=== PATIENT | female | born 1960 | race Caucasian/White ===

== ENCOUNTER 2018-10-29 06:17 | Emergency (ER) | payer BC, SELFPAY ==
[2018-10-29] MEDS ORDERED: ALBUTEROL 2.5 MG/3 ML NEB SOL ONE (07:04)
[2018-10-29] MEDS ORDERED: FAMOTIDINE 20 MG TAB ONE (07:04)
[2018-10-29] MEDS ORDERED: AZITHROMYCIN 250 MG TAB ONE (07:04)
[2018-10-29] MEDS ORDERED: predniSONE 20 MG TAB ONE (07:04)
--- NOTE | 2018-10-29 07:26 | ER ---
Nurse's Notes [facility] Name: Joy Phan Age: 58 yrs Sex: Female : 1960 Arrival Date: 10/29/2018 Time: 06:20 Bed 6 Private MD: Diagnosis: Chronic obstructive pulmonary disease with (acute) exacerbation Presentation: 10/29 06:20 Presenting complaint: Patient states: that she has been having cough with green fc drainage, congestion, wheezing, fever and body aches x 2 weeks. Transition of care: patient was not received from another setting of care. Onset of symptoms was October 15, 2018. Risk Assessment: Do you want to hurt yourself or someone else? Patient reports no desire to harm self or others. Initial Sepsis Screen: Does the patient meet any 2 criteria? RR > 20 per min. HR > 90 bpm. Yes Does the patient have a suspected source of infection? Yes: Productive cough/pneumonia. Care prior to arrival: None. 06:20 Method Of Arrival: Ambulatory 06:20 Acuity: LOVELY 3 fc Historical: - Allergies: 06:39 Aleve; fc - Home Meds: 06:39 [place] 5-325 mg Oral tab 1 tab three times a day [Active]; hydrochlorothiazide 25 mg fc Oral tab 1 tab once daily [Active]; - PMHx: 06:39 Hypertension; Neck pain; fc - PSHx: 06:39 Tubal ligation; ectopic ; fc - Immunization history:: Last tetanus immunization: up to date Flu vaccine is not up to date. - Social history:: Smoking status: Patient uses tobacco products, smokes one pack cigarettes per day. Patient uses alcohol, on a daily basis. - Ebola Screening: : Patient negative for fever greater than or equal to 101.5 degrees Fahrenheit, and additional compatible Ebola Virus Disease symptoms Patient denies exposure to infectious person Patient denies travel to an Ebola-affected area in the 21 days before illness onset. Screenin:39 Abuse screen: Denies threats or abuse. Nutritional screening: No deficits noted. fc Tuberculosis screening: No symptoms or risk factors identified. Fall Risk None identified. Assessment: 06:50 General: Appears in no apparent distress. uncomfortable. General: Behavior is calm, jd3 cooperative, appropriate for age. Pain: Complains of pain in general. Neuro: Level of Consciousness is awake, alert, obeys commands, Oriented to person, place, time, situation. Cardiovascular: Capillary refill < 3 seconds Patient's skin is warm and dry. Respiratory: Reports chest congestion. Airway is patent Respiratory effort is even, unlabored, Respiratory pattern is regular, symmetrical, Breath sounds with wheezes bilaterally. GI: No signs and/or symptoms were reported involving the gastrointestinal system. : No signs and/or symptoms were reported regarding the genitourinary system. EENT: No signs and/or symptoms were reported regarding the EENT system. Derm: Skin is intact, Skin is dry, Skin is normal, Skin temperature is warm. Musculoskeletal: Circulation, motion, and sensation intact. Range of motion: intact in all extremities. 07:27 Reassessment: Patient appears in no apparent distress at this time. Patient and/or hb family updated on plan of care and expected duration. Pain level reassessed. Patient is alert, oriented x 3, equal unlabored respirations, skin warm/dry/pink. Patient states symptoms have improved. 07:38 Reassessment: Patient appears in no apparent distress at this time. Patient and/or sv family updated on plan of care and expected duration. Pain level reassessed. Patient is alert, oriented x 3, equal unlabored respirations, skin warm/dry/pink. Vital Signs: 06:20 BP 126 / 87; Pulse 96; Resp 24; Temp 98.6(O); Pulse Ox 92% on R/A; Weight 52.62 kg (R); Height 5 ft. 6 in. (167.64 cm) (R); Pain 8/10; 07:15 BP 129 / 79; Pulse 92; Resp 20; Pulse Ox 96% on R/A; Pain 0/10; hb 06:20 Body Mass Index 18.72 (52.62 kg, 167.64 cm) ED Course: 06:20 Patient arrived in ED. am2 06:20 Arm band placed on Patient placed in an exam room, on a stretcher. fc 06:23 Karolina Chua FNP-C is PHCP. snw 06:23 Quinton Hurst MD is Attending Physician. snw 06:37 Triage completed. fc 06:39 Allergy band placed. Bed in low position. Call light in reach. fc 06:39 No provider procedures requiring assistance completed. fc 06:50 Jarett Zuluaga, RN is Primary Nurse. jd3 07:39 Patient did not have IV access during this emergency room visit. sv Administered Medications: 07:01 Drug: Albuterol 2.5 mg Route: Inhalation; jd3 07:01 Drug: predniSONE 60 mg Route: PO; jd3 07:40 Follow up: Response: No adverse reaction sv 07:01 Drug: Pepcid 20 mg Route: PO; jd3 07:39 Follow up: Response: No adverse reaction sv 07:01 Drug: Zithromax 500 mg Route: PO; jd3 07:39 Follow up: Response: No adverse reaction sv Outcome: 07:25 Discharge ordered by . snw 07:39 Discharged to home ambulatory. sv 07:39 Condition: stable 07:39 Discharge instructions given to patient, Instructed on discharge instructions, follow up and referral plans. medication usage, Demonstrated understanding of instructions, follow-up care, medications, Prescriptions given X 4. 07:39 Patient left the ED. sv Signatures: Nicole Fraser RN RN Karolina Davenport, ACCOUNTING GENERALIST-C ACCOUNTING GENERALIST-Csnw Zara Buchanan RN RN Garima Whelan RN RN Batool Parra am2 Jarett Zuluaga, RN RN jd3 Corrections: (The following items were deleted from the chart) 07:26 07:15 BP 129 / 79; Pulse 92bpm; Resp 20bpm; Pulse Ox 95% RA; Pain 0/10; hb hb
--- NOTE | 2018-10-29 07:26 | EDPHYS ---
Physician Documentation [facility] Name: Joy Phan Age: 58 yrs Sex: Female : 1960 Arrival Date: 10/29/2018 Time: 06:20 Bed 6 Private MD: ED Physician Quinton Hurst HPI: 10/29 07:07 This 58 yrs old Female presents to ER via Ambulatory with complaints of Chest snw Congestion. 07:07 Onset: The symptoms/episode began/occurred gradually, 2 week(s) ago, and became worse snw this morning, and became persistent. Associated signs and symptoms: Pertinent positives: body aches, productive cough. Modifying factors: the patient symptoms are aggravated by smoking. The patient has experienced similar episodes in the past. The patient has not recently seen a physician. Historical: - Allergies: 06:39 Aleve; fc - Home Meds: 06:39 [place] 5-325 mg Oral tab 1 tab three times a day [Active]; hydrochlorothiazide 25 mg fc Oral tab 1 tab once daily [Active]; - PMHx: 06:39 Hypertension; Neck pain; fc - PSHx: 06:39 Tubal ligation; ectopic ; fc - Immunization history:: Last tetanus immunization: up to date Flu vaccine is not up to date. - Social history:: Smoking status: Patient uses tobacco products, smokes one pack cigarettes per day. Patient uses alcohol, on a daily basis. - Ebola Screening: : Patient negative for fever greater than or equal to 101.5 degrees Fahrenheit, and additional compatible Ebola Virus Disease symptoms Patient denies exposure to infectious person Patient denies travel to an Ebola-affected area in the 21 days before illness onset. ROS: 07:05 Eyes: Negative for injury, pain, redness, and discharge, ENT: Negative for injury, snw pain, and discharge, Neck: Negative for injury, pain, and swelling, Cardiovascular: Negative for chest pain, palpitations, and edema. 07:05 Abdomen/GI: Negative for abdominal pain, nausea, vomiting, diarrhea, and constipation, Back: Negative for injury and pain, : Negative for injury, bleeding, discharge, and swelling, MS/Extremity: Negative for injury and deformity, Skin: Negative for injury, rash, and discoloration, Neuro: Negative for headache, weakness, numbness, tingling, and seizure. 07:05 Constitutional: Positive for body aches. 07:05 Respiratory: Positive for cough, shortness of breath, wheezing. Exam: 06:40 Respiratory: the patient does not display signs of respiratory distress, Respirations: snw pursed lip breathing, shallow respirations, Breath sounds: bronchial sounds, + upper airway congestion. 07:05 Head/Face: Normocephalic, atraumatic. Eyes: Pupils equal round and reactive to light, snw extra-ocular motions intact. Lids and lashes normal. Conjunctiva and sclera are non-icteric and not injected. Cornea within normal limits. Periorbital areas with no swelling, redness, or edema. ENT: Nares patent. No nasal discharge, no septal abnormalities noted. Tympanic membranes are normal and external auditory canals are clear. Oropharynx with no redness, swelling, or masses, exudates, or evidence of obstruction, uvula midline. Mucous membranes moist. Neck: Trachea midline, no thyromegaly or masses palpated, and no cervical lymphadenopathy. Supple, full range of motion without nuchal rigidity, or vertebral point tenderness. No Meningismus. Chest/axilla: Normal chest wall appearance and motion. Nontender with no deformity. No lesions are appreciated. Cardiovascular: Regular rate and rhythm with a normal S1 and S2. No gallops, murmurs, or rubs. Normal PMI, no JVD. No pulse deficits. Abdomen/GI: Soft, non-tender, with normal bowel sounds. No distension or tympany. No guarding or rebound. No evidence of tenderness throughout. Back: No spinal tenderness. No costovertebral tenderness. Full range of motion. 07:05 MS/ Extremity: Pulses equal, no cyanosis. Neurovascular intact. Full, normal range of motion. Neuro: Awake and alert, GCS 15, oriented to person, place, time, and situation. Cranial nerves II-XII grossly intact. Motor strength 5/5 in all extremities. Sensory grossly intact. Cerebellar exam normal. Normal gait. Psych: Awake, alert, with orientation to person, place and time. Behavior, mood, and affect are within normal limits. 07:05 Constitutional: The patient appears awake, anxious, frail, hyperemic, older than stated age 07:05 Skin: Appearance: Color: erythematous, jerod. Vital Signs: 06:20 BP 126 / 87; Pulse 96; Resp 24; Temp 98.6(O); Pulse Ox 92% on R/A; Weight 52.62 kg (R); fc Height 5 ft. 6 in. (167.64 cm) (R); Pain 8/10; 07:15 BP 129 / 79; Pulse 92; Resp 20; Pulse Ox 96% on R/A; Pain 0/10; hb 06:20 Body Mass Index 18.72 (52.62 kg, 167.64 cm) fc MDM: 06:30 Patient medically screened. snw 07:26 Data reviewed: vital signs, nurses notes. Data interpreted: Pulse oximetry: on room air snw is 92 %. Interpretation: acceptable. Counseling: I had a detailed discussion with the patient and/or guardian regarding: the historical points, exam findings, and any diagnostic results supporting the discharge/admit diagnosis, the need for outpatient follow up, to return to the emergency department if symptoms worsen or persist or if there are any questions or concerns that arise at home. Response to treatment: the patient's symptoms have mildly improved after treatment. Special discussion: Based on the history and exam findings, there is no indication for further emergent testing or inpatient evaluation. I discussed with the patient/guardian the need to see the primary care provider for further evaluation of the symptoms. I discussed with the patient/guardian the need to see the welder gas for further evaluation of the symptoms. Administered Medications: 07:01 Drug: Albuterol 2.5 mg Route: Inhalation; jd3 07:01 Drug: predniSONE 60 mg Route: PO; jd3 07:40 Follow up: Response: No adverse reaction sv 07:01 Drug: Pepcid 20 mg Route: PO; jd3 07:39 Follow up: Response: No adverse reaction sv 07:01 Drug: Zithromax 500 mg Route: PO; jd3 07:39 Follow up: Response: No adverse reaction sv Disposition: 10/29/18 07:25 Discharged to Home. Impression: Chronic obstructive pulmonary disease with (acute) exacerbation. - Condition is Stable. - Discharge Instructions: Chronic Obstructive Pulmonary Disease Exacerbation. - Prescriptions for Prednisone 20 mg Oral Tablet - take 2 tablet by ORAL route once daily for 5 days; 10 tablet. Albuterol Sulfate 90 mcg/actuation - inhale 1-2 puff by INHALATION route every 4-6 hours; 1 Inhaler. Pepcid 20 mg Oral Tablet - take 1 tablet by ORAL route once daily; 20 tablet. Zithromax 500 mg Oral Tablet - take 1 tablet by ORAL route once daily for 5 days; 5 tablet. - Work release form, Medication Reconciliation Form, Thank You Letter, Antibiotic Education, Prescription Opioid Use form. - Follow up: Private Physician; When: 2 - 3 days; Reason: Recheck today's complaints, Continuance of care, Re-evaluation by your physician. Follow up: Emergency Department; When: As needed; Reason: Worsening of condition. Addendum: 11/04/2018 06:53 Co-signature as Attending Physician, Quinton Hurst MD I agree with the assessment and t w4 plan of care. Signatures: Nicole Fraser RN RN Karolina Davenport FNP-C ENVIRONMENTAL ADVISOR-Zara Kapadia RN RN Jarett Soliz RN HOL[place] jQuinton Gutiérrez MD MD tw4 Corrections: (The following items were deleted from the chart) 10/29 07:39 07:25 10/29/2018 07:25 Discharged to Home. Impression: Chronic obstructive pulmonary sv disease with (acute) exacerbation. Condition is Stable. Forms are Medication Reconciliation Form, Thank You Letter, Antibiotic Education, Prescription Opioid Use. Follow up: Private Physician; When: 2 - 3 days; Reason: Recheck today's complaints, Continuance of care, Re-evaluation by your physician. Follow up: Emergency Department; When: As needed; Reason: Worsening of condition. snw
[2018-10-29 07:47] VITALS: TEMP 98.6
[2018-10-29 07:48] VITALS: BP 129/79; O2SAT 96
== END 2018-10-29 07:39 | disposition home or self-care (01) ==
LOC: ER 06:17
DX: J44.1 Chronic obstructive pulmonary disease with (acute) exacerbation (principal); I10 Essential (primary) hypertension; F17.210 Nicotine dependence, cigarettes, uncomplicated; Z79.899 Other long term (current) drug therapy
CPT/HCPCS: 99284; J7512

== ENCOUNTER 2022-12-10 15:42 | Inpatient (IN) | payer OTHER ==
--- OUTSIDE RECORDS SUMMARY | 2022-12-10 15:49 | XMS REPORT | Continuity of Care Document ---
:1960 Author Organization [facility] t Address [address] [place] [address] Care Team Providers Name Role Phone MARY DENTON Primary Care Physician Unavailable QASIM DELCID Attending Clinician Unavailable LUIS HARLEY Attending Clinician Unavailable LUIS HARLEY Attending Clinician Unavailable MADHU WADE Attending Clinician Unavailable ALICE SEBASTIAN Attending Clinician Unavailable ALICE SEBASTIAN Attending Clinician Unavailable CHASITY VANEGAS Attending Clinician Unavailable Sheree Medeiros Attending Clinician Unavailable Doctor Unassigned, [place] Attending Clinician Unavailable Mary Denton MD Attending Clinician [phone] Elise Haines MD Attending Clinician ELISE HAINES Attending Clinician Unavailable TERESA DEE Attending Clinician Unavailable Luis Harley MD Attending Clinician Merissa Rose MD Attending Clinician Andrei Cruz MD Attending Clinician Reina Gagnon MD Attending Clinician REINA GAGNON Attending Clinician Unavailable Hilaria Couch MD Attending Clinician WINNIE HILARIA Attending Clinician Unavailable Teresa Denny Attending Clinician Bhavin TRAN, Qasim Avery Attending Clinician Anesthesiology Attending Clinician Unavailable 5, [facility] Infusion Chair Attending Clinician Unavailable [facility]-Lab Attending Clinician Unavailable Jey BABB, Freda Prince Attending Clinician Unavailable 2, [facility] Lab Attending Clinician Unavailable 4, [facility] Infusion Chair Attending Clinician Unavailable BENNIE GORE Attending Clinician Unavailable Nurse, [facility]ob Immunization Attending Clinician Unavailable Bennie Goer DO Attending Clinician Edmar Wiseman MD Attending Clinician 3, [facility] Infusion Chair Attending Clinician Unavailable Pob, [facility] Main Attending Clinician Unavailable Gaby KUMAR, Nimco Attending Clinician NIMCO DESIR Attending Clinician Unavailable ANDREI CRUZ Attending Clinician Unavailable TAYLER LYNN Attending Clinician Unavailable Leah TRAN, Tayler Mcgee Attending Clinician 2, [facility] Infusion Chair Attending Clinician Unavailable Nurse, [facility] Infusion Attending Clinician Unavailable 2, [facility] Adult Infusion Nurse Attending Clinician Unavailable 3, [facility] Adult Infusion Nurse Attending Clinician Unavailable ILIANA MARIEE Attending Clinician Unavailable Myron BABB, Chantel Le Attending Clinician Unavailable Gwendolyn TRAN, Jay Attending Clinician Madhu Wade MD Attending Clinician 1, [facility] Lab Attending Clinician Unavailable Daniel Levin MD Attending Clinician Alice Sebastian DO Attending Clinician [facility] Attending Clinician Unavailable Only, [facility] Test Attending Clinician Unavailable Acosta Swartz MD Attending Clinician Nelia Dee LMSW Attending Clinician Sean Mcgill DO Attending Clinician SEAN MCGILL Attending Clinician Unavailable Provider, [facility] Attending Clinician Unavailable Arpita Lin Attending Clinician Chasity Vanegas MD Attending Clinician , [facility] Surg Spec Procedure Attending Clinician Unavailable MARY DENTON Attending Clinician Unavailable Seven Mcnally MD Attending Clinician QASIM DELCID Admitting Clinician Unavailable LUIS HARLEY Admitting Clinician Unavailable MADHU WADE Admitting Clinician Unavailable ALICE SEBASTIAN Admitting Clinician Unavailable CHASITY VANEGAS Admitting Clinician Unavailable Sheree Medeiros Admitting Clinician Unavailable ELISE HAINES Admitting Clinician Unavailable Qasim Delcid MD Admitting Clinician Luis Harley MD Admitting Clinician Alice Sebastian DO Admitting Clinician SEAN MCGILL Admitting Clinician Unavailable Chasity Vanegas MD Admitting Clinician Payers Payer Name Policy Type Policy Number Effective Date Expiration Date [facility] [id number] 2017 00:00:00 Problems Condition Condition Condition Status Onset Resolution Last Treating Co mments Source Name Details Category Date Date Treatment Clinician Date History of History of Disease Active 2020-11 U nivers cervical cervical 1-07 [place] dysplasia [place] [facility] [place] Arthritis, Arthritis, Disease Active 2020-11 U nivers multiple multiple 0-19 ity of joint joint 00:00: [place] involvemen involvemen 00 Me dical t t Branch Thrombocyt Thrombocyt Disease Active 2020-11 U nivers openia openia 0-19 ity of 00:00: [place] 00 Medical [facility] Swelling Swelling Disease Active 2020-11 Unive rs of right of right 0-06 ity of middle middle 00:00: [place] finger finger 00 Medical Branch Allergic Allergic Disease Active Unive rs contact contact 8-19 [place] of dermatitis [place] due to due to 00 Medical plants, plants, Branch except except food food Change of Change of Disease Active Uni vers skin skin 8-19 it[place] of related to [place] to [place] chemothera chemothera 00 Me dical py py 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 4-14 it y of 00:00: [place] 00 Medical [facility] Pulmonary Pulmonary Disease Active Uni vers hypertensi hypertensi 4-14 it y of on on 00:00: [place] [facility] Mild Mild Disease Active Univers cardiomega cardiomega 4-14 it y of ly ly 00:00: [place] [facility] Orthostati Orthostati Disease Active U nivers c c 4-14 it[place] of hypotensio hypotensio 00:[place] Small cell Small cell Disease Active U nivers lung lung 3-17 ity of cancer cancer 00:00: [place] [facility] Lung mass Lung mass Disease Active Uni vers 1-13 ity of 00:00: [place] [facility] Liver mass Liver mass Disease Active U nivers 1-13 ity of 00:00: [place] [facility] Shortness Shortness Disease Active Uni vers of breath of breath 1-13 ity of 00:00: [place] [facility] Bilateral Bilateral Disease Active Uni vers renal renal 1-13 ity of cysts cysts 00:00: [place] [facility] Coronary Coronary Disease Active Unive rs artery artery 1-13 ity of calcificat calcificat 00:[place] High High Disease Active Univers priority priority 1-13 ity of for for 00:00: [place] COVID-19 COVID-19 00 Medica l virus virus Branch vaccinatio vaccinatio n n Anxiety, Anxiety, Disease Active Unive rs generalize generalize 1-13 it y of d d 00:00: [place] [facility] Non-cardia Non-cardia Disease Active U nivers c chest c chest 1-13 ity of pain pain 00:00: [place] [facility] Screening Screening Disease Active 2019-11 Overview: Univers mammogram mammogram 0-15 Formattin i ty of for breast for breast 00:00: g of this [place] cancer cancer 00 note Medical might be Branch different from the original. 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 0-14 ity of bronchitis bronchitis 00:[place] [facility] [place] Abrasion Abrasion Disease Active 2019-11 Unive rs of left of left 0-02 ity of middle middle 00:00: [place] finger finger 00 Medical with with Branch infection infection Paronychia Paronychia Disease Active 2019-11 U nivers of left of left 0-02 ity of middle middle 00:00: [place] finger finger 00 [facility] Branch Screening Screening Disease Active Uni vers for for 9-23 ity of cervical cervical 00:00: [place] cancer cancer [facility] Branch Cigarette Cigarette Disease Active Uni vers nicotine nicotine 9-17 ity of dependence dependence [place] in 00 Medical remission remission Bran ch COPD COPD Disease Active Univers exacerbati exacerbati 9-05 it y of on on 00:00: [place] 00 [facility] Branch Encounter Encounter Disease Active Uni vers for for 7-22 ity of screening screening 00:00: Isaías duran for for 00 Medical malignant malignant Bran ch neoplasm neoplasm of lung of lung Need for Need for Disease Active Unive rs 23-polyval 23-polyval 7-22 it y of ent ent 00:00: [place] pneumococc pneumococc 00 Me dical al al Branch polysaccha polysaccha ride ride vaccine vaccine Poor Poor Disease Active Univers nutrition nutrition 3-28 ity of 00:00: [place] 00 [facility] Branch S/P LEEP S/P LEEP Disease Active Unive rs 3-08 ity of 00:00: [place] 00 [facility] Branch 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 coli E. coli Disease Active 2015-11 Univers urinary urinary 2-18 ity of tract tract 00:00: [place] infection infection 00 [facility] Alcohol Alcohol Disease Active 2015-11 Univers use use 2-14 ity of 00:00: [place] 00 [facility] Branch Tobacco Tobacco Disease Active 2015-11 Univers use use 2-14 ity of disorder disorder 00:00: [place] 00 [facility] Branch Postmenopa Postmenopa Disease Active 2015-11 U nivers usal usal 2-14 ity of 00:00: [place] 00 [facility] Branch Vaginal Vaginal Disease Active 2015-11 Univers atrophy atrophy 2-14 ity of 00:00: [place] [facility] Branch Essential Essential Disease Active 2015-11 Uni vers hypertensi hypertensi 0-15 it y of on on 00:00: [place] 00 [facility] [place] Adrenal Adrenal Disease Active Univers nodule nodule 07-30 ity of 00:00: [place] 00 [facility] [place] Allergies, Adverse Reactions, Alerts Allergy Allergy Status Severity Reaction(s) Onset Inactive Treating Comm ents Source Name Type Date Date Clinician tetracyc DA Active [facility] line 2-02 [place] 00:00: d 00 [facility] calcium DA Active [facility] carbonat 1-30 [place] e 00:00: d 00 [facility] naproxen DA Active SV SHORTNESS OF HC A BREATH 12-01 [place] 00:00: d 00 [facility] Calcium Propensi Active Rash Took Univers Carbonat ty to 106 generic ity of e adverse 00:00: antacid [place] reaction 00 with Medical calcium. Branch CALCIUM DRUG Active Rash Univers CARBONAT INGREDI 1-06 ity of E 00:00: [place] 00 [facility] [place] Codeine Propensi Active Rash Univers ty to 9-03 ity of adverse 00:00: [place] reaction 00 Medical s Branch Naproxen Propensi Active Shortness of [place] with Univers ty to Breath 07-05 motrin. ity of adverse 00:00: [place] reaction 00 Medical Branch CODEINE DRUG Active Rash Univers INGREDI 9- ity of 00:00: [place] 00 [facility] NAPROXEN DRUG Active Hives Univers INGREDI 9-03 ity of 00:00: [place] 00 Medical [place] Social History Social Habit Start Date Stop Date Quantity Comments Source Exposure to Not sure [place] of SARS-CoV-2 [facility] (event) [place] Alcohol intake 2021-10-21 2021-10-21 Ex-drinker University of 00:00:00 00:00:00 (finding) [facility] Cigarettes smoked 2021-09-06 2021-09-06 Univers ity of current (pack per 00:00:00 00:00:00 ) - Reported Branch Cigarette 2021-09-06 2021-09-06 University of pack-years 00:00:00 00:00:00 [facility] Tobacco use and 2021-09-06 2021-09-06 Smokeless tobacco Un iversity of exposure 00:00:00 00:00:00 non-user [facility] Tobacco Comment 2021-09-06 2021-09-06 uses nicotene patch University 00:00:00 00:00:00 occasionally [facility] History of 2021-01-31 Cigarette Smoker Universi ty of tobacco use 00:00:00 [facility] Sex [birth year] At [birth year] Universit y of 00:00:00 00:00:00 [facility] Smoking Status Start Date Stop Date Source Ex-smoker 2021-09-06 00:00:00 2021-09-06 00:00:00 Universi ty of [facility] Medications Ordered Filled Start Stop Current Ordering Indication Dosage Frequency Signature Comments Components Source Medication Medication Date Date Medication? Clinician (SIG) Name Name No known 2020-11 No Univers medications 2-27 ity of 15:40: [address] atorvasta 2020-11 Yes [id number] 20mg Take 1 Univers n 20 mg 2-27 tablet by ity of tablet 00:00: mouth at [place] 00 bedtime. Medical Branch estradioL 2020-11 Yes [id number] Apply 1g Univers (ESTRACE) 2-27 vaginally ity o f 0.01 % (0.1 00:00: at bedtime [place] mg/gram) 00 2- 3 times Medic al vaginal per week Branch cream atorvastati 2020-11 Yes [id number] 20mg Take 1 Univers n 20 mg 2-27 tablet by ity of tablet 00:00: mouth at [place] 00 bedtime. Medical Branch estradioL 2020-11 Yes [id number] Apply 1g Univers (ESTRACE) 2-27 vaginally ity o f 0.01 % (0.1 00:00: at bedtime [place] mg/gram) 00 2- 3 times Medic al vaginal per week Branch cream atorvastati 2020-11 Yes [id number] 20mg Take 1 Univers n 20 mg 2-27 tablet by ity of tablet 00:00: mouth at [place] 00 bedtime. Medical Branch estradioL 2020-11 Yes [id number] Apply 1g Univers (ESTRACE) 2-27 vaginally ity o f 0.01 % (0.1 00:00: at bedtime [place] mg/gram) 00 2- 3 times Medic al vaginal per week Branch cream atorvastati 2020-11 Yes [id number] 20mg Take 1 Univers n 20 mg 2-27 tablet by ity of tablet 00:00: mouth at [place] 00 bedtime. [facility] Branch estradioL 2020-11 Yes [id number] Apply 1g Univers (ESTRACE) 2-27 vaginally ity o f 0.01 % (0.1 00:00: at bedtime [place] mg/gram) 00 2- 3 times Medic al vaginal per week Branch cream atorvastati 2020-11 Yes [id number] 20mg Take 1 Univers n 20 mg 2-27 tablet by ity of tablet 00:00: mouth at [place] 00 bedtime. [facility] Branch estradioL 2020-11 Yes [id number] Apply 1g Univers (ESTRACE) 2-27 vaginally ity o f 0.01 % (0.1 00:00: at bedtime [place] mg/gram) 00 2- 3 times Medic al vaginal per week Branch cream atorvastati 2020-11 Yes [id number] 20mg Take 1 Univers n 20 mg 2-27 tablet by ity of tablet 00:00: mouth at [place] 00 bedtime. [facility] Branch estradioL 2020-11 Yes [id number] Apply 1g Univers (ESTRACE) 2-27 vaginally ity o f 0.01 % (0.1 00:00: at bedtime [place] mg/gram) 00 2- 3 times Medic al vaginal per week Branch cream atorvastati 2020-11 Yes [id number] 20mg Take 1 Univers n 20 mg 2-27 tablet by ity of tablet 00:00: mouth at [place] 00 bedtime. [facility] Branch estradioL 2020-11 Yes [id number] Apply 1g Univers (ESTRACE) 2-27 vaginally ity o f 0.01 % (0.1 00:00: at bedtime [place] mg/gram) 00 2- 3 times Medic al vaginal per week Branch cream atorvastati 2020-11 Yes [id number] 20mg Take 1 Univers n 20 mg 2-27 tablet by ity of tablet 00:00: mouth at [place] 00 bedtime. [facility] Branch estradioL 2020-11 Yes [id number] Apply 1g Univers (ESTRACE) 2-27 vaginally ity o f 0.01 % (0.1 00:00: at bedtime [place] mg/gram) 00 2- 3 times Medic al vaginal per week Branch cream atorvastati 2020-11 Yes [id number] 20mg Take 1 Univers n 20 mg 2-27 tablet by ity of tablet 00:00: mouth at [place] 00 bedtime. Medical Branch estradioL 2020-11 Yes [id number] Apply 1g Univers (ESTRACE) 2-27 vaginally ity o f 0.01 % (0.1 00:00: at bedtime [place] mg/gram) 00 2- 3 times Medic al vaginal per week Branch cream atorvastati 2020-11 Yes [id number] 20mg Take 1 Univers n 20 mg 2-27 tablet by ity of tablet 00:00: mouth at [place] 00 bedtime. Medical Branch estradioL 2020-11 Yes [id number] Apply 1g Univers (ESTRACE) 2-27 vaginally ity o f 0.01 % (0.1 00:00: at bedtime [place] mg/gram) 00 2- 3 times Medic al vaginal per week Branch cream atorvastati 2020-11 Yes [id number] 20mg Take 1 Univers n 20 mg 2-27 tablet by ity of tablet 00:00: mouth at [place] 00 bedtime. Medical Branch estradioL 2020-11 Yes [id number] Apply 1g Univers (ESTRACE) 2-27 vaginally ity o f 0.01 % (0.1 00:00: at bedtime [place] mg/gram) 00 2- 3 times Medic al vaginal per week Branch cream atorvastati 2020-11 Yes [id number] 20mg Take 1 Univers n 20 mg 2-27 tablet by ity of tablet 00:00: mouth at [place] 00 bedtime. Medical Branch estradioL 2020-11 Yes [id number] Apply 1g Univers (ESTRACE) 2-27 vaginally ity o f 0.01 % (0.1 00:00: at bedtime [place] mg/gram) 00 2- 3 times Medic al vaginal per week Branch cream HYDROcodone 2020-11 Yes 1{tbl} Take 1 Un carmen -acetaminop 2-20 tablet by ity of hen 7.5-325 00:00: mouth 4 [place] as mg per 00 (four) Medical tablet times Branch daily. HYDROcodone 2020-11 Yes 1{tbl} Take 1 Un carmen -acetaminop 2-20 tablet by ity of hen 7.5-325 00:00: mouth 4 [place] as mg per 00 (four) Medical tablet times Branch daily. HYDROcodone 2020-11 Yes 1{tbl} Take 1 Un carmen -acetaminop 2-20 tablet by ity of hen 7.5-325 00:00: mouth 4 [place] as mg per 00 (four) Medical tablet times Branch daily. HYDROcodone 2020-11 Yes 1{tbl} Take 1 Un carmen -acetaminop 2-20 tablet by ity of hen 7.5-325 00:00: mouth 4 [place] as mg per 00 (four) Medical tablet times Branch daily. HYDROcodone 2020-11 Yes 1{tbl} Take 1 Un carmen -acetaminop 2-20 tablet by ity of hen 7.5-325 00:00: mouth 4 [place] as mg per 00 (four) Medical tablet times Branch daily. HYDROcodone 2020-11 Yes 1{tbl} Take 1 Un carmen -acetaminop 2-20 tablet by ity of hen 7.5-325 00:00: mouth 4 [place] as mg per 00 (four) Medical tablet times Branch daily. HYDROcodone 2020-11 Yes 1{tbl} Take 1 Un carmen -acetaminop 2-20 tablet by ity of hen 7.5-325 00:00: mouth 4 [place] as mg per 00 (four) Medical tablet times Branch daily. HYDROcodone 2020-11 Yes 1{tbl} Take 1 Un carmen -acetaminop 2-20 tablet by ity of hen 7.5-325 00:00: mouth 4 [place] mg per 00 (four) Medical tablet times Branch daily. HYDROcodone 2020-11 Yes 1{tbl} Take 1 Un carmen -acetaminop 2-20 tablet by ity of hen 7.5-325 00:00: mouth 4 [place] mg per 00 (four) Medical tablet times Branch daily. HYDROcodone 2020-11 Yes 1{tbl} Take 1 Un carmen -acetaminop 2-20 tablet by ity of hen 7.5-325 00:00: mouth 4 [place] mg per 00 (four) Medical tablet times Branch daily. HYDROcodone 2020-11 Yes 1{tbl} Take 1 Un carmen -acetaminop 2-20 tablet by ity of hen 7.5-325 00:00: mouth 4 [place] mg per 00 (four) Medical tablet times Branch daily. HYDROcodone 2020-11 Yes 1{tbl} Take 1 Un carmen -acetaminop 2-20 tablet by ity of hen 7.5-325 00:00: mouth 4 [place] as mg per 00 (four) Medical tablet times Branch daily. Immunizations Ordered Filled Immunization Date Status Comments [facility] e Immunization Name Name SARS-COV-2 COVID-19 2021-08-26 Completed Unive rsity of PFIZER VACCINE 00:00:00 [facility] SARS-COV-2 COVID-19 2021-08-26 Completed Unive rsity of PFIZER VACCINE 00:00:00 [facility] SARS-COV-2 COVID-19 2021-08-26 Completed Unive rsity of PFIZER VACCINE 00:00:00 [facility] SARS-COV-2 COVID-19 2021-08-26 Completed Unive rsity of PFIZER VACCINE 00:00:00 [facility] SARS-COV-2 COVID-19 2021-08-26 Completed Unive rsity of PFIZER VACCINE 00:00:00 [facility] SARS-COV-2 COVID-19 2021-08-26 Completed Unive rsity of PFIZER VACCINE 00:00:00 [facility] SARS-COV-2 COVID-19 2021-08-26 Completed Unive rsity of PFIZER VACCINE 00:00:00 [facility] SARS-COV-2 COVID-19 2021-08-26 Completed Unive rsity of PFIZER VACCINE 00:00:00 [facility] SARS-COV-2 COVID-19 2021-08-26 Completed Unive rsity of PFIZER VACCINE 00:00:00 [facility] SARS-COV-2 COVID-19 2021-08-26 Completed Unive rsity of PFIZER VACCINE 00:00:00 [facility] SARS-COV-2 COVID-19 2021-08-26 Completed Unive rsity of PFIZER VACCINE 00:00:00 [facility] SARS-COV-2 COVID-19 2021-08-26 Completed Unive rsity of PFIZER VACCINE 00:00:00 [facility] SARS-COV-2 COVID-19 2021-08-26 Completed Unive rsity of PFIZER VACCINE 00:00:00 [facility] Pneumococcal 2021-08-20 Completed University o f Polysaccharide, 00:00:00 [place] Med ical PPSV23 (PNEUMOVAX) Branch Influenza Virus 2021-08-20 Completed Universit y of Vaccine Quad IM, 00:00:00 [place] Me dical Preserv and ABX Branch Free 6 MO-64 YRS Pneumococcal 2021-08-20 Completed University o f Polysaccharide, 00:00:00 [place] Med ical PPSV23 (PNEUMOVAX) Branch Influenza Virus 2021-08-20 Completed Universit y of Vaccine Quad IM, 00:00:00 [place] Me dical Preserv and ABX Branch Free 6 MO-64 YRS Pneumococcal 2021-08-20 Completed University o f Polysaccharide, 00:00:00 [place] Med ical PPSV23 (PNEUMOVAX) Branch Influenza Virus 2021-08-20 Completed Universit y of Vaccine Quad IM, 00:00:00 [place] Me dical Preserv and ABX Branch Free 6 MO-64 YRS Pneumococcal 2021-08-20 Completed University o f Polysaccharide, 00:00:00 [place] Med ical PPSV23 (PNEUMOVAX) Branch Influenza Virus 2021-08-20 Completed Universit y of Vaccine Quad IM, 00:00:00 [place] Me dical Preserv and ABX Branch Free 6 MO-64 YRS Pneumococcal 2021-08-20 Completed University o f Polysaccharide, 00:00:00 [place] Med ical PPSV23 (PNEUMOVAX) Branch Influenza Virus 2021-08-20 Completed Universit y of Vaccine Quad IM, 00:00:00 [place] Me dical Preserv and ABX Branch Free 6 MO-64 YRS Pneumococcal 2021-08-20 Completed University o f Polysaccharide, 00:00:00 [place] Med ical PPSV23 (PNEUMOVAX) Branch Influenza Virus 2021-08-20 Completed Universit y of Vaccine Quad IM, 00:00:00 [place] Me dical Preserv and ABX Branch Free 6 MO-64 YRS Pneumococcal 2021-08-20 Completed University o f Polysaccharide, 00:00:00 [place] Med ical PPSV23 (PNEUMOVAX) Branch Influenza Virus 2021-08-20 Completed Universit y of Vaccine Quad IM, 00:00:00 [place] Me dical Preserv and ABX Branch Free 6 MO-64 YRS Pneumococcal 2021-08-20 Completed University o f Polysaccharide, 00:00:00 [place] Med ical PPSV23 (PNEUMOVAX) Branch Influenza Virus 2021-08-20 Completed Universit y of Vaccine Quad IM, 00:00:00 [place] Me dical Preserv and ABX Branch Free 6 MO-64 YRS Pneumococcal 2021-08-20 Completed University o f Polysaccharide, 00:00:00 [place] Med ical PPSV23 (PNEUMOVAX) Branch Influenza Virus 2021-08-20 Completed Universit y of Vaccine Quad IM, 00:00:00 [place] Me dical Preserv and ABX Branch Free 6 MO-64 YRS Pneumococcal 2021-08-20 Completed University o f Polysaccharide, 00:00:00 [place] Med ical PPSV23 (PNEUMOVAX) Branch Influenza Virus 2021-08-20 Completed Universit y of Vaccine Quad IM, 00:00:00 [place] Me dical Preserv and ABX Branch Free 6 MO-64 YRS Pneumococcal 2021-08-20 Completed University o f Polysaccharide, 00:00:00 [place] Med ical PPSV23 (PNEUMOVAX) Branch Influenza Virus 2021-08-20 Completed Universit y of Vaccine Quad IM, 00:00:00 [facility] dical Preserv and ABX Branch Free 6 MO-64 YRS Pneumococcal 2021-08-20 Completed University o f Polysaccharide, 00:00:00 [place] Med ical PPSV23 (PNEUMOVAX) Branch Influenza Virus 2021-08-20 Completed Universit y of Vaccine Quad IM, 00:00:00 [place] Me dical Preserv and ABX Branch Free 6 MO-64 YRS Pneumococcal 2021-08-20 Completed University o f Polysaccharide, 00:00:00 [place] Med ical PPSV23 (PNEUMOVAX) Branch Influenza Virus 2021-08-20 Completed Universit y of Vaccine Quad IM, 00:00:00 [facility] dical Preserv and ABX Branch Free 6 MO-64 YRS SARS-COV-2 COVID-19 2021-06-20 Completed Unive rsity of PFIZER VACCINE 00:00:00 [facility] Branch SARS-COV-2 COVID-19 2021-06-20 Completed Unive rsity of PFIZER VACCINE 00:00:00 [facility] SARS-COV-2 COVID-19 2021-06-20 Completed Unive rsity of PFIZER VACCINE 00:00:00 [facility] SARS-COV-2 COVID-19 2021-06-20 Completed Unive rsity of PFIZER VACCINE 00:00:00 [facility] Branch SARS-COV-2 COVID-19 2021-06-20 Completed Unive rsity of PFIZER VACCINE 00:00:00 [facility] SARS-COV-2 COVID-19 2021-06-20 Completed Unive rsity of PFIZER VACCINE 00:00:00 [facility] SARS-COV-2 COVID-19 2021-06-20 Completed Unive rsity of PFIZER VACCINE 00:00:00 [facility] SARS-COV-2 COVID-19 2021-06-20 Completed Unive rsity of PFIZER VACCINE 00:00:00 [facility] SARS-COV-2 COVID-19 2021-06-20 Completed Unive rsity of PFIZER VACCINE 00:00:00 [facility] SARS-COV-2 COVID-19 2021-06-20 Completed Unive rsity of PFIZER VACCINE 00:00:00 [facility] SARS-COV-2 COVID-19 2021-06-20 Completed Unive rsity of PFIZER VACCINE 00:00:00 [facility] SARS-COV-2 COVID-19 2021-06-20 Completed Unive rsity of PFIZER VACCINE 00:00:00 [facility] SARS-COV-2 COVID-19 2021-06-20 Completed Unive rsity of PFIZER VACCINE 00:00:00 [facility] SARS-COV-2 COVID-19 2021-05-30 Completed Unive rsity of PFIZER VACCINE 00:00:00 [facility] SARS-COV-2 COVID-19 2021-05-30 Completed Unive rsity of PFIZER VACCINE 00:00:00 [facility] SARS-COV-2 COVID-19 2021-05-30 Completed Unive rsity of PFIZER VACCINE 00:00:00 [facility] SARS-COV-2 COVID-19 2021-05-30 Completed Unive rsity of PFIZER VACCINE 00:00:00 [facility] SARS-COV-2 COVID-19 2021-05-30 Completed Unive rsity of PFIZER VACCINE 00:00:00 [facility] SARS-COV-2 COVID-19 2021-05-30 Completed Unive rsity of PFIZER VACCINE 00:00:00 [facility] SARS-COV-2 COVID-19 2021-05-30 Completed Unive rsity of PFIZER VACCINE 00:00:00 [facility] SARS-COV-2 COVID-19 2021-05-30 Completed Unive rsity of PFIZER VACCINE 00:00:00 [facility] SARS-COV-2 COVID-19 2021-05-30 Completed Unive rsity of PFIZER VACCINE 00:00:00 [facility] SARS-COV-2 COVID-19 2021-05-30 Completed Unive rsity of PFIZER VACCINE 00:00:00 [facility] SARS-COV-2 COVID-19 2021-05-30 Completed Unive rsity of PFIZER VACCINE 00:00:00 [facility] SARS-COV-2 COVID-19 2021-05-30 Completed Unive rsity of PFIZER VACCINE 00:00:00 [facility] SARS-COV-2 COVID-19 2021-05-30 Completed Unive rsity of PFIZER VACCINE 00:00:00 [facility] Influenza Virus 2020-07-19 Completed Universit y of Vaccine Quad .5 mL 00:00:00 [place] [facility] [place] Pneumococcal 2020-07-19 Completed University o f Polysaccharide, 00:00:00 [place] [facility] PPSV23 (PNEUMOVAX) [place] Influenza Virus 2020-07-19 Completed Universit y of Vaccine Quad .5 mL 00:00:00 [facility] 6+ MO [place] Pneumococcal 2020-07-19 Completed University o f Polysaccharide, 00:00:00 [place] [facility] PPSV23 (PNEUMOVAX) [place] Influenza Virus 2020-07-19 Completed Universit y of Vaccine Quad .5 mL 00:00:00 [facility] 6+ MO [place] Pneumococcal 2020-07-19 Completed University o f Polysaccharide, 00:00:00 [place] [facility] PPSV23 (PNEUMOVAX) Branch Influenza Virus 2020-07-19 Completed Universit y of Vaccine Quad .5 mL 00:00:00 [facility] 6+ MO [place] Pneumococcal 2020-07-19 Completed University o f Polysaccharide, 00:00:00 [place] [facility] PPSV23 (PNEUMOVAX) [place] Influenza Virus 2020-07-19 Completed Universit y of Vaccine Quad .5 mL 00:00:00 [place] [facility] 6+ MO [place] Pneumococcal 2020-07-19 Completed University o f Polysaccharide, 00:00:00 [place] [facility] PPSV23 (PNEUMOVAX) Branch Influenza Virus 2020-07-19 Completed Universit y of Vaccine Quad .5 mL 00:00:00 [place] [facility] 6[facility] Pneumococcal 2020-07-19 Completed University o f Polysaccharide, 00:00:00 [place] [facility] PPSV23 (PNEUMOVAX) Branch Influenza Virus 2020-07-19 Completed Universit y of Vaccine Quad .5 mL 00:00:00 [place] [facility] 6+ [facility] Pneumococcal 2020-07-19 Completed University o f Polysaccharide, 00:00:00 [place] [facility] PPSV23 (PNEUMOVAX) Branch Influenza Virus 2020-07-19 Completed Universit y of Vaccine Quad .5 mL 00:00:00 [place] [facility] 6[facility] Pneumococcal 2020-07-19 Completed University o f Polysaccharide, 00:00:00 [place] [facility] PPSV23 (PNEUMOVAX) Branch Influenza Virus 2020-07-19 Completed Universit y of Vaccine Quad .5 mL 00:00:00 [place] [facility] 6+ [facility] Pneumococcal 2020-07-19 Completed University o f Polysaccharide, 00:00:00 [place] [facility] PPSV23 (PNEUMOVAX) Branch Influenza Virus 2020-07-19 Completed Universit y of Vaccine Quad .5 mL 00:00:00 [place] [facility] 6+ [facility] Pneumococcal 2020-07-19 Completed University o f Polysaccharide, 00:00:00 [place] [facility] PPSV23 (PNEUMOVAX) Branch Influenza Virus 2020-07-19 Completed Universit y of Vaccine Quad .5 mL 00:00:00 [place] [facility] 6[facility] Pneumococcal 2020-07-19 Completed University o f Polysaccharide, 00:00:00 [place] [facility] PPSV23 (PNEUMOVAX) Branch Influenza Virus 2020-07-19 Completed Universit y of Vaccine Quad .5 mL 00:00:00 [place] [facility] 6[facility] Pneumococcal 2020-07-19 Completed University o f Polysaccharide, 00:00:00 [place] [facility] PPSV23 (PNEUMOVAX) Branch Influenza Virus 2020-07-19 Completed Universit y of Vaccine Quad .5 mL 00:00:00 [place] [facility] 6[facility] Pneumococcal 2020-07-19 Completed University o f Polysaccharide, 00:00:00 [place] [facility] PPSV23 (PNEUMOVAX) Branch TDAP 2019-05-23 Completed University of 00:00:00 [facility] TDAP 2019-05-23 Completed University of 00:00:00 [facility] TDAP 2019-05-23 Completed University of 00:00:00 [facility] TDAP 2019-05-23 Completed University of 00:00:00 [facility] TDAP 2019-05-23 Completed University of 00:00:00 [facility] TDAP 2019-05-23 Completed University of 00:00:00 [facility] TDAP 2019-05-23 Completed University of 00:00:00 [facility] TDAP 2019-05-23 Completed University of 00:00:00 [facility] TDAP 2019-05-23 Completed University of 00:00:00 [facility] TDAP 2019-05-23 Completed University of 00:00:00 [facility] TDAP 2019-05-23 Completed University of 00:00:00 [facility] TDAP 2019-05-23 Completed University of 00:00:00 [facility] TDAP 2019-05-23 Completed University of 00:00:00 [facility] Influenza Virus 2016-08-15 Completed Universit y of Vaccine Quad IM 3+ 00:00:00 [facility] Influenza Virus 2016-08-15 Completed Universit y of Vaccine Quad IM 3+ 00:00:00 [facility] Influenza Virus 2016-08-15 Completed Universit y of Vaccine Quad IM 3+ 00:00:00 [facility] Influenza Virus 2016-08-15 Completed Universit y of Vaccine Quad IM 3+ 00:00:00 [facility] Influenza Virus 2016-08-15 Completed Universit y of Vaccine Quad IM 3+ 00:00:00 [facility] Influenza Virus 2016-08-15 Completed Universit y of Vaccine Quad IM 3+ 00:00:00 [facility] Influenza Virus 2016-08-15 Completed Universit y of Vaccine Quad IM 3+ 00:00:00 [facility] Influenza Virus 2016-08-15 Completed Universit y of Vaccine Quad IM 3+ 00:00:00 [facility] Influenza Virus 2016-08-15 Completed Universit y of Vaccine Quad IM 3+ 00:00:00 [facility] Influenza Virus 2016-08-15 Completed Universit y of Vaccine Quad IM 3+ 00:00:00 [facility] Influenza Virus 2016-08-15 Completed Universit y of Vaccine Quad IM 3+ 00:00:00 [facility] Influenza Virus 2016-08-15 Completed Universit y of Vaccine Quad IM 3+ 00:00:00 [facility] Influenza Virus 2016-08-15 Completed Universit y of Vaccine Quad IM 3+ 00:00:00 [facility] Vital Signs Vital Name Observation Time Observation Value Comments Source Systolic blood 2021-10-28 20:14:00 114 mm[Hg] Univer sity of pressure [facility] Diastolic blood 2021-10-28 20:14:00 72 mm[Hg] Unive rsity of pressure [facility] Heart rate 2021-10-28 20:14:00 63 /min [facility] Body temperature 2021-10-28 20:14:00 36.78 [facility]i [facility] weight 2021-10-28 20:14:00 56.79 kg [facility] BMI 2021-10-28 20:14:00 20.21 kg/m2 [facility] Procedures Procedure Date / Time Performing Clinician Source Performed EXTERNAL PROVIDER 2022-05-28 05:01:00 Doctor Unassigned, No [facility] RECORDS Name Medical Branch REFERRAL- 2022-05-07 05:01:00 Doctor Unassigned, No [facility] sity [facility] REQUEST/RESPONSE Name Medical Branch REFERRAL- 2022-02-07 05:01:00 Doctor Unassigned, No [facility] REQUEST/RESPONSE Name Medical Branch AUTHORIZATION FOR 2021-12-20 06:01:00 Doctor Unassigned, No [facility] RELEASE OF [facility] Name Medical Branch AUTHORIZATION FOR 2021-12-10 06:01:00 Doctor Unassigned, No [facility] Name Medical Branch PATIENT QUESTIONNAIRE 2021-10-28 06:01:00 Doctor Unassigned, No [facility] Name Medical Branch POCT URINALYSIS W/O 2021-10-28 00:00:00 Merissa Rose [facility] SPECIFIC GRAVITY Medical Branch DISCLOSURE AND CONSENT 2021-10-18 06:01:00 Doctor Unassigned, No [facility] MEDICAL & SURGICAL Name Medical Branc h PROCEDURES - FEMALM Encounters Start End Encounter Admission Attending Care Care Encounter Source Date/Time Date/Time Type Type Clinicians Facility Department ID 2021-10-08 Outpatient R DELCID, [facility] RAD [id number] Univers 09:29:58 QASIM itcatina [facility] 2021-10-03 Outpatient R LUIS HARLEY [facility] RAD [id number] Univers 12:52:32 LUIS HARLEY itcatina [facility] 2021-10-01 Outpatient R LUIS HARLEY [facility] RAD 10 [id number] Univers 10:59:27 LUIS HARLEY itcatina [facility] 2021-09-03 Emergency [facility] [id number] Univers 08:37:11 ity of [facility] 2021-09-01 Outpatient R MAURO, [facility] SNS [id number] Univers 10:22:54 MADHU [facility] 2021-09-01 Outpatient ALICE SEBASTIAN [facility] MPU [id number] Univers 03:20:20 ALICE SEBASTIAN it [facility] 2021-08-31 Outpatient R GUILHERME [facility] DARIN [id number] Univers 01:32:49 CHASITY [facility] 2022-12-04 2022-12-05 Inpatient MIKY Medeiros [facility].01 [id number] [facility] 06:03:00 15:30:00 Sheree Stanley [facility] 2022-05-28 2022-05-28 Orders Doctor OLVIN 1.2.840.114 [id number] Univers 00:00:00 00:00:00 Only Unassigned, NIKOLAI 350.1.13.10 ity of [place] [facility] 4.2.7.2.686 [place] as [id number] [address] 2022-05-12 2022-05-12 Telephone [facility] 1.2.840.114 [id number] Univers 00:00:00 00:00:00 Mary TORRES 350.1.13.10 [place] [id number] [address] 2022-05-09 2022-05-09 Telephone [place] 1.2.840.114 [id number] Univers 00:00:00 00:00:00 Mary TORRES 350.1.13.10 [place] [id number] [address] 2022-05-07 2022-05-07 Orders Doctor OLVIN 1.2.840.114 [id number] Univers 00:00:00 00:00:00 Only Unassigned, NIKOLAI 350.1.13.10 ity of [place] [facility] 4.2.7.2.686 [place] [phone] [address] 2022-02-11 2022-02-11 [facility] 1.2.840.114 [id number] Univers 00:00:00 00:00:00 Elise TORRES 350.1.13.10 i ty [place] [id number] [address] 2022-02-07 2022-02-07 Orders Doctor OLVIN 1.2.840.114 [id number] Univers 00:00:00 00:00:00 Only Unassigned, NIKOLAI 350.1.13.10 ity of [place] [facility] 4.2.7.2.686 [place] [id number] [address] 2021-12-20 2021-12-20 Orders Doctor BAH 1.2.840.114 [id number] Univers 00:00:00 00:00:00 Only Unassigned, NIKOLAI 350.1.13.10 ity of [place] [facility] 4.2.7.2.686 [place] [id number] [address] 2021-12-10 2021-12-10 Orders Doctor OLVIN 1.2.840.114 [id number] Univers 00:00:00 00:00:00 Only Unassigned, NIKOLAI 350.1.13.10 ity of [place] [facility] 4.2.7.2.686 [place] [id number] [address] 2021-12-02 2021-12-02 Outpatient R LUIS HARLEY [facility] [id number] Univers 10:20:00 10:20:00 LUIS HARLEY [facility] 2021-11-22 2021-11-22 Outpatient R YANCY [facility] [id number] Univers 14:40:00 14:40:00 ELISE catina [facility] 2021-11-22 2021-11-22 Outpatient R YANCY [facility] [id number] Univers 14:40:00 14:40:00 ELISE catina [facility] 2021-11-04 2021-11-04 Outpatient R LUIZ [facility] [id number] Univers 12:30:00 12:30:00 TERESA catina [facility] 2021-11-04 2021-11-04 Telephone FABY Harley 1.2.840.114 [id number] Univers 00:00:00 00:00:00 Luis Marcelino 350.1.13.10 it y [facility] 4.2.7.2.686 [place] [id number] [address] 2021-11-01 2021-11-01 Outpatient R LUIS HARLEY [facility] [id number] Univers 08:45:00 08:45:00 LUIS HARLEY catina [facility] 2021-10-30 2021-10-30 Telephone [facility] 1.2.840.114 [id number] Univers 00:00:00 00:00:00 Merissa TORRES 350.1.13.10 i [place] [id number] [address] 2021-10-28 2021-10-28 Office [facility] 1.2.840.114 [id number] Univers 14:00:00 14:49:12 Visit Merissa TORRES 350.1.13.10 i ty [place] [id number] [address] 2021-10-28 2021-10-28 [facility] [id number] Univers 14:00:00 14:49:12 MERISSA galindocatina [facility] 2021-10-28 2021-10-28 Outpatient R ALEJANDRINA [facility] [id number] Univers 14:00:00 14:49:12 [facility] 2021-10-28 2021-10-28 Outpatient R ALEJANDRINA [facility] [id number] Univers 14:00:00 14:00:00 [facility] 2021-10-28 2021-10-28 Outpatient R ALEJANDRINA [facility] [id number] Univers 14:00:00 14:00:00 [facility] 2021-10-28 2021-10-28 Patient [facility] 1.2.840.114 [id number] Univers 00:00:00 00:00:00 Secure Msg Andrei TORRES 350.1.13.10 [place] [id number] Ia dical [facility] 059 [facility] 2021-10-28 2021-10-28 Orders Doctor OLVIN 1.2.840.114 [id number] Univers 00:00:00 00:00:00 Only Unassigned, NIKOLAI 350.1.13.10 ity of [place] [facility] 4.2.7.2.686 Berny as [phone] [facility] 009 [place] 2021-10-22 2021-10-22 Office FABY Gagnon 1.2.840.114 [id number] Univers 11:30:00 12:15:19 Visit Reina Marcelino 350.1.13.10 ity of [facility] 4.2.7.2.686 [place] [id number] [facility] 181 Branch 2021-10-22 2021-10-22 Outpatient R KALIN [facility] [id number] Univers 11:30:00 11:30:00 REINA quispe [facility] 2021-10-22 2021-10-22 Outpatient R KALIN [facility] [id number] Univers 11:30:00 11:30:00 REINA quispe [facility] 2021-10-21 2021-10-21 Outpatient R LUIS HARLEY [facility] [id number] Univers 11:20:00 11:45:55 LUIS HARLEYy [facility] 2021-10-21 2021-10-21 Office FABY Harley 1.2.345.608 [id number] Univers 11:20:00 11:45:55 Visit Luis Marcelino 350.1.13.10 it y of [facility] 4.2.7.2.686 [place] [id number] [facility] 080 [place] 2021-10-21 2021-10-21 Outpatient R LUIS HARLEY [facility] [id number] Univers 11:20:00 11:20:00 [facility] 2021-10-18 2021-10-18 Office Hilaria Couch [facility] 1.2.840.114 [id number] Univers 13:30:00 14:09:41 Visit BRIAN 350.1.13.10 i ty [facility] [place] [id number] Ia dical NAL 134 [facility] 2021-10-18 2021-10-18 Outpatient R HILARIA COUCH [facility] [id number] Univers 13:30:00 14:09:41 ity of [facility] 2021-10-18 2021-10-18 Outpatient R HILARIA COUCH [facility] [id number] Univers 13:30:00 14:09:41 ity [facility] 2021-10-18 2021-10-18 Outpatient R HILARIA COUCH [facility] [id number] Univers 13:30:00 13:30:00 ity [facility] 2021-10-18 2021-10-18 Orders Doctor BAH 1.2.840.114 [id number] Univers 00:00:00 00:00:00 Only Unassigned, NIKOLAI 350.1.13.10 ity of [place] [facility] 4.2.7.2.686 [place] as [id number] [facility] 009 [place] 2021-10-14 2021-10-14 Outpatient R YANCY [facility] [id number] Univers 13:00:20 23:59:00 [facility] 2021-10-14 2021-10-14 Outpatient R [facility] [id number] Univers 13:00:20 23:59:00 ELISE ity of [facility] 2021-10-14 2021-10-14 [facility] 1.2.840.114 [id number] Univers 13:00:00 23:59:00 Encounter Elise TORRES 350.1.13.10 ity [facility] 4.2.7.2.[place] [id number] [facility] [address] 2021-10-14 2021-10-14 Outpatient Lavelle DEE [facility] RAD [id number] Univers 08:52:44 12:59:00 [facility] 2021-10-14 2021-10-14 [facility] Teresa Dee 1.2. 840.114 [id number] Univers 08:52:44 12:59:00 Encounter Qasim Delcid 350.1. 13.10 ity [facility] 4.2.7.2.686 Benry as [id number] [facility] 804 Branch 2021-10-14 2021-10-14 [facility] KIERRA Delcid 1.2.880.008 [id number] Univers 07:04:00 11:31:00 Encounter Qasim RICHTER 350.1.13.10 ity [facility] 4.2.7.2.686 [place] [id number] [facility] 104 Branch 2021-10-14 2021-10-14 Surgery Anesthesiol KIERRA 1.2.840.114 [id number] Univers 09:00:00 10:20:00 anali RICHTER 350.1.13.10 it y of [facility] 4.2.7.2.686 [place] [id number] [facility] 103 Branch 2021-10-11 2021-10-11 Nurse 5, [facility] Infusion Chair UNIVERSIT 1. 2.840.114 [id number] Univers 13:34:39 15:04:39 Visit Luis Harley [facility] 350.1.13.10 ity of [facility] 4.2.7.2.[place] [id number] [facility] orin 053 Branch 2021-10-11 2021-10-11 Outpatient LUIS WHITE [facility] [id number] Univers 14:00:00 14:00:00 LUIS HARLEY [facility] 2021-10-11 2021-10-11 Outpatient LUIS WHITE [facility] [id number] Univers 12:30:00 12:30:00 LUIS HARLEY [facility] 2021-10-11 2021-10-11 Personal Shopper [facility] UNIVERSIT 1.2.840.114 [id number] Univers 12:14:43 12:29:43 Visit Luis Harley [facility] 350.1.13.10 ity of [place] [id number] [address] 2021-10-08 2021-10-08 Outpatient LUIS WHITE [facility] RAD [id number] Univers 08:32:00 09:14:00 LUIS HARLEY [facility] 2021-10-08 2021-10-08 [facility], 1.2.840.9 [id number] Univers 08:32:00 09:14:00 Encounter Luis 03545.1.1 it y of 3.104.2.7 [place] .3.024561 Medica l .8 [place] 2021-10-08 2021-10-08 Anesthesia Khanna, 1.2.840.2 [id number] Univers 09:13:21 09:13:21 Event Freda Prince 32839.1.1 ity of 3.104.2.7 [place] .3.360771 Medica l .8 [place] 2021-10-08 2021-10-08 Travel 1.2.840.1 1.2.753.451 [id number] Univers 00:00:00 00:00:00 89339.1.1 350.1.13.10 ity of 3.104.2.7 [place].3.698 [place] .3.989146 084.8 Medica l .8 [place] 2021-10-07 2021-10-07 Travel 1.2.840.1 1.2.656.224 [id number] Univers 00:00:00 00:00:00 63180.1.1 350.1.13.10 ity of 3.104.2.7 4.[place]7.3.698 [place] .3.921369 084.8 Medica l .8 [place] 2021-10-04 2021-10-04 Case Cricket, 1.2.840.6 [id number] Univers 00:00:00 00:00:00 Management Luis 65003.1.1 i ty of 3.104.2.7 [place] .3.624843 Medica l .8 [place] 2021-09-30 2021-09-30 Outpatient R LUIS HARLEY [facility] [id number] Univers 11:00:00 12:02:54 HARLEYLUIS Duran [facility] 2021-09-30 2021-09-30 Office HarleyFABY 1.2.297.471 [id number] Univers 10:50:12 12:02:54 Visit Luis Marcelino 350.1.13.10 it y of [place] 4.2.7.2.686 [place] [phone] Medi orin 080 [place] 2021-09-30 2021-09-30 Office Cricket 1.2.840.3 [id number] Univers 10:50:12 12:02:54 Visit Luis 07335.1.1 ity of 3.104.2.7 [place] .3.379995 Medica l .8 [place] 2021-09-30 2021-09-30 Outpatient Lavelle LUIS HARLEY [facility] [id number] Univers 11:00:00 11:00:00 LUIS HARLEY [facility] 2021-09-30 2021-09-30 Travel 1.2.840.1 1.2.519.770 [id number] Univers 00:00:00 00:00:00 26724.1.1 350.1.13.10 ity of 3.104.2.7 4[place].3.698 [place] .3.365400 084.8 Medica l .8 [place] 2021-09-24 2021-09-24 [facility] 1.2.840.114 [id number] Univers 00:00:00 00:00:00 Marysara TORRES 350.1.13.10 it[place] of [place] [id number] [address] 2021-09-24 2021-09-24 Telephone Bertin, 1.2.840.2 [id number] Univers 00:00:00 00:00:00 Mary Le 98881.1.1 ity of 3.104.2.7 [place] .3.917111 Medica l .8 [place] 2021-09-20 2021-09-20 Nurse 5, [facility] Infusion Chair UN[facility] 1. 2.840.114 [id number] Univers 09:36:04 11:06:04 Visit Luis Harley [facility] 350.1.13.10 ity of [place] [id number] [address] 2021-09-20 2021-09-20 Nurse 5, [facility] Infusion Chair UNIVERSIT 1. 2.840.114 [id number] Univers 09:36:04 11:06:04 Visit Luis Harley [facility] 350.1.13.10 ity of [place] [id number] [address] 2021-09-20 2021-09-20 Outpatient R LUIS HARLEY [facility] [id number] Univers 09:30:00 09:30:00 LUIS HARLEY ity of [facility] 2021-09-20 2021-09-20 Travel 1.2.840.1 1.2.074.502 [id number] Univers 00:00:00 00:00:00 12918.1.1 350.1.13.10 ity of 3.104.2.7 4[place].3.698 [place] .3.484481 084.8 Medica l .8 [place] 2021-09-18 2021-09-18 Personal Shopper Luis Harley 1.2.840.1 [id number] Univers 11:12:35 13:41:51 Visit 2, [facility] 76977.1.1 i ty of 3.104.2.7 [place] .3.395834 Medica l .8 [place] 2021-09-18 2021-09-18 Personal Shopper 2, Adc Lab [facility] 1.2.840.114 [id number] Univers 11:12:35 11:27:35 Visit Luis Harley 350.1.13.10 ity of [place] 4.2.7.2.686 [facility] [phone] Ia dical NAL 353 [facility] 2021-09-18 2021-09-18 Outpatient R LUIS HARLEY [facility] [id number] Univers 10:30:00 10:30:00 LUIS HARLEY [facility] 2021-09-06 2021-09-06 [facility] 1.2.840.114 [id number] Univers 12:06:20 23:59:00 Encounter Luis TORRES 350.1.13.10 ity [facility] 4.2.7.2.686 [facility] [id number] [facility] [address] 2021-09-06 2021-09-06 [facility] Cricket, 1.2.840.3 [id number] Univers 12:06:20 23:59:00 Encounter Luis 85708.1.1 it y of 3.104.2.7 [place] .3.425193 Medica l .8 [place] 2021-09-06 2021-09-06 Outpatient R LUIS HARLEY [facility] [id number] Univers 12:05:27 12:05:00 LUIS HARLEYcatina [facility] 2021-09-06 2021-09-06 Outpatient R LUIS HARLEY [facility] [id number] Univers 12:05:27 12:05:00 LUIS HARLEY josiecatina [facility] 2021-09-06 2021-09-06 [facility] 1.2.840.114 [id number] Univers 12:00:00 12:05:00 Encounter Luis BRIAN 350.1.13.10 [facility] 4.2.7.2.686 [facility] [id number] [facility] [address] 2021-09-06 2021-09-06 Hospital Harley, 1.2.840.9 [id number] Univers 12:00:00 12:05:00 Encounter Luis 06387.1.1 it y of 3.104.2.7 [place] .3.599240 Medica l .8 [place] 2021-09-06 2021-09-06 Office FishHilaria [facility] 1.2.840.114 [id number] Univers 10:35:49 11:44:42 Visit BRIAN 350.1.13.10 i ty [facility] 4.2.7.2.686 [facility] [phone] Ia dical NAL 134 [facility] 2021-09-06 2021-09-06 Office Hilaria Couch 1.2.840.9 [id number] Univers 10:35:49 11:44:42 Visit 67815.1.1 ity of 3.104.2.7 [place] .3.893823 Medica l .8 [place] 2021-09-06 2021-09-06 Outpatient R HILARIA COUCH [facility] [id number] Univers 10:30:00 11:44:42 ity of [facility] 2021-09-06 2021-09-06 Travel 1.2.840.1 1.2.791.871 8942 [id number] Univers 00:00:00 00:00:00 26289.1.1 350.1.13.10 ity of 3.104.2.7 [place].3.698 [place]3.941840 084.8 Medica l .8 [place] 2021-09-03 2021-09-03 [facility] 1.2.840.114 [id number] Univers 12:48:37 23:59:00 Encounter Elise TORRES 350.1.13.10 ity [facility] 4.2.7.2.686 [facility] [id number] [facility] [address] 2021-09-03 2021-09-[address] [facility], 1.2.840.0 [id number] Univers 12:48:37 23:59:00 Encounter Elise 14766.1.1 it y of 3.104.2.7 [place] .3.815211 Medica l .8 [place] 2021-09-03 2021-09-03 Outpatient R [facility] [id number] Univers 12:47:08 12:47:00 ELISE quispe [facility] 2021-09-03 2021-09-03 [facility] 1.2.840.114 [id number] Univers 12:45:00 12:47:00 Encounter Elise TORRES 350.1.13.10 ity of [place] 4.2.7.2.686 [facility] [id number] [facility] [address] 2021-09-03 2021-09-[address] [facility], 1.2.840.8 [id number] Univers 12:45:00 12:47:00 Encounter Elise 62149.1.1 it y of 3.104.2.7 [place] .3.359555 Medica l .8 [place] 2021-09-03 2021-09-03 Outpatient R [facility] [id number] Univers 00:00:00 00:00:00 ELISE josiecatina [facility] 2021-08-30 2021-08-30 Nurse 4, [facility] Infusion Chair UN[facility]ERSIT 1. 2.840.114 [id number] Univers 14:01:13 15:31:13 Visit Luis Harley [facility] 350.1.13.10 ity of [facility] 4.2.7.2.686 [facility] [id number] [facility] [address] 2021-08-30 2021-08-30 Nurse Finesse Harley.2.840.2 [id number] Univers 14:01:13 15:31:13 Visit Luis 05893.1.1 ity of 3.104.2.7 [place] .3.369882 Medica l .8 [place] 2021-08-30 2021-08-30 Outpatient R LUIS HARLEY [facility] [id number] Univers 14:00:00 14:00:00 LUIS HARLEY [facility] 2021-08-28 2021-08-28 Patient Luiz, 1.2.840.0 [id number] Univers 00:00:00 00:00:00 Secure Msg Teresa 51606.1.1 i ty of [place] 3.104.2.7 [place] .3.823395 Medica l .8 [place] 2021-08-27 2021-08-27 Outpatient R LUIS HARLEY [facility] [id number] Univers 16:00:00 16:00:00 LUIS HARLEY [facility] 2021-08-27 2021-08-27 Outpatient R LUIS HARLEY [facility] [id number] Univers 16:00:00 15:44:32 LUIS HARLEY [facility] 2021-08-27 2021-08-27 Office Cricket FABY 1.2.532.249 [id number] Univers 14:50:07 15:44:32 Visit Luis Marcelino 350.1.13.10 it y of [place] 4.2.7.2.686 Berny as [id number] [facility] [address] 2021-08-27 2021-08-27 Office Cricket 1.2.840.4 [id number] Univers 14:50:07 15:44:32 Visit Luis 29016.1.1 ity of 3.104.2.7 [place] .3.455387 Medica l .8 [place] 2021-08-27 2021-08-27 Travel 1.2.840.1 1.2.004.171 [id number] Univers 00:00:00 00:00:00 77021.1.1 350.1.13.10 ity of 3.104.2.7 4[place].3.698 [place] .3.716875 084.8 Medica l .8 [place] 2021-08-26 2021-08-26 Personal Shopper Luis Harley 1.2.840.1 [id number] Univers 10:57:15 11:51:18 Visit 2, [facility] 97844.1.1 i ty of 3.104.2.7 [place] .3.417114 Medica l .8 [place] 2021-08-26 2021-08-26 Personal Shopper 2, [facility] Lab [facility] 1.2.840.114 [id number] Univers 10:57:15 11:12:15 Visit Harley Luis Brian 350.1.13.10 it[place] [phone] Me dical nal [address] [facility] 2021-08-26 2021-08-26 Outpatient R EBEN [facility] [id number] Univers 11:00:00 11:00:00 BENNIE itcatina [facility] 2021-08-26 2021-08-26 Imm/Inj Nurse, Vonda Pob Immunization [facility] 1.2.840.114 [id number] Univers 10:49:24 10:49:38 Visit Bennie Gore 350.1.13 .10 it[place] of [place] [phone] Me dical nal [address] [facility] 2021-08-26 2021-08-26 Imm/Inj Bennie Gore 1.2.840.6 [id number] Univers 10:49:24 10:49:38 Visit Nurse, Vonda Pob Immunization 90090.1.1 ity of 3.104.2.7 [place] .3.398116 Medica l .8 [place] 2021-08-26 2021-08-26 Patient Doctor 1.2.840.4 [id number] Univers 00:00:00 00:00:00 Secure Msg Unassigned, 29115.1.1 ity of [place] 3.104.2.7 [place] .3.462384 Medica l .8 [place] 2021-08-22 2021-08-22 Emergency Bowen [facility] 1.2.817.805 [id number] 0801 Univers 12:35:00 13:01:00 Edmar Whiting 350.1.13.10 i ty [place] [phone] [facility] [address] 2021-08-22 2021-08-22 Emergency Wiseman, 1.2.840.1 [id number] Univers 12:35:00 13:01:00 Edmar 52988.1.1 ity of 3.104.2.7 [place] .3.876102 Medica l .8 [place] 2021-08-22 2021-08-22 Travel 1.2.840.1 1.2.001.740 9748 0970 Univers 00:00:00 00:00:00 92688.1.1 350.1.13.10 ity of 3.104.2.7 4[place]7.3.698 [place] .3.539737 084.8 Medica l .8 [place] 2021-08-21 2021-08-21 Personal Shopper Elise Haines 1.2.840.1 [id number] Univers 08:04:06 08:37:54 Visit 2, [facility] 51546.1.1 i ty of 3.104.2.7 [place] .3.737576 Medica l .8 [place] 2021-08-21 2021-08-21 Personal Shopper 2, Adc Lab [facility] 1.2.840.114 [id number] Univers 08:04:06 08:19:06 Visit Elise Haines 350.1.13.10 ity of [place] 4.2.7.2.686 [facility] [phone] Ia dical nal [address] [facility] 2021-08-21 2021-08-21 Outpatient R YANCY [facility] [id number] Univers 08:00:00 08:00:00 ELISE quispe of [facility] 2021-08-21 2021-08-21 Telephone Yancy [facility] 1.2.840.114 [id number] Univers 00:00:00 00:00:00 Elise Torres 350.1.13.10 [place] [phone] Ia dical nal [address] [facility] 2021-08-21 2021-08-21 Travel 1.2.840.1 1.2.298.562 5794 2081 Univers 00:00:00 00:00:00 92344.1.1 350.1.13.10 ity of 3.104.2.7 4.[place]7.3.698 [place] .3.989458 084.8 Medica l .8 [place] 2021-08-21 2021-08-21 Telephone Edemeko, 1.2.840.9 [id number] Univers 00:00:00 00:00:00 Elise 77532.1.1 ity of 3.104.2.7 [place] .3.378780 Medica l .8 [place] 2021-08-20 2021-08-[address] [facility] 1.2.840.114 [id number] Univers 13:18:10 14:30:22 Visit Eilse Torres 350.1.13.10 i ty [place] [phone] Ia dical nal [address] [facility] 2021-08-20 2021-08-20 [facility] 1.2.840.4 [id number] Univers 13:18:10 14:30:22 Visit Elise 18865.1.1 ity of 3.104.2.7 [place] .3.267983 Medica l .8 [place] 2021-08-20 2021-08-20 [facility] [id number] Univers 13:20:00 13:20:00 ELISE ity of [facility] 2021-08-20 2021-08-20 Orders Doctor OLVIN 1.2.840.114 [id number] Univers 00:00:00 00:00:00 Only Unassigned, NIKOLAI 350.1.13.10 ity of [place] [facility] 4.2.7.2.686 Berny as [phone] [facility] [address] 2021-08-20 2021-08-20 Travel 1.2.840.1 1.2.969.508 8582 5970 Univers 00:00:00 00:00:00 73816.1.1 350.1.13.10 ity of 3.104.2.7 4.[place].3.698 [place] .3.403147 084.8 Medica l .8 [place] 2021-08-20 2021-08-20 Orders Doctor 1.2.840.4 [id number] Univers 00:00:00 00:00:00 Only Unassigned, 72102.1.1 ity of [place] 3.104.2.7 [place] .3.193722 Medica l .8 [place] 2021-08-09 2021-08-09 Nurse 3, [facility] Infusion Chair UNIVERSIT 1. 2.840.114 [id number] Univers 08:16:23 10:16:23 Visit Luis Harley [facility] 350.1.13.10 ity of [place] 4.2.[place].2.[place] [phone] [facility] orin [address] [place] 2021-08-09 2021-08-09 Nurse Cricket, 1.2.840.9 [id number] Univers 08:16:23 10:16:23 Visit Luis 66778.1.1 ity of 3.104.2.7 [place] .3.881983 Medica l .8 [place] 2021-08-09 2021-08-09 Outpatient R LUIS HARLEY [facility] [id number] Univers 08:30:00 08:30:00 LUIS HARLEY ity of [facility] 2021-08-09 2021-08-09 Travel 1.2.840.1 1.2.569.728 [id number] 9180 Univers 00:00:00 00:00:00 84250.1.1 350.1.13.10 ity of 3.104.2.7 4.[place].7.3.698 [place] .3.421594 084.8 Medica l .8 [place] 2021-08-08 2021-08-08 Personal Shopper Jamie, Vonda Lab Main [facility] 1.2.8 40.114 [id number] Univers 09:16:46 09:31:46 Visit Luis Harley 350.1.13.10 it[place] [phone] Ia dical nal [address] [facility] 2021-08-08 2021-08-08 Personal Shopper Luis Harley 1.2.840.1 [id number] Univers 09:16:46 09:31:46 Visit Poanibal, [facility] Lab Main 32211.1.1 ity of 3.104.2.7 [place] .3.786699 Medica l .8 [place] 2021-08-08 2021-08-08 Outpatient R LUIS HARLEY [facility] [id number] Univers 09:00:00 09:00:00 LUIS HARLEY [facility] 2021-08-07 2021-08-07 Office FABY Harley 1.2.316.775 [id number] Univers 15:55:31 16:37:08 Visit Luis Marcelino 350.1.13.10 it y of [place] 4.2.7.2.686 [place] as [id number] [facility] [address] 2021-08-07 2021-08-07 Office Finesse Harley.2.840.0 [id number] Univers 15:55:31 16:37:08 Visit Luis 53021.1.1 ity of 3.104.2.7 [place] .3.696251 Medica l .8 [place] 2021-08-07 2021-08-07 Outpatient R LUIS HARLEY [facility] [id number] Univers 16:00:00 16:00:00 LUIS HARLEY [facility] 2021-07-25 2021-07-25 Ancillary Nimco Desir [facility] 1.2.840.114 [id number] Univers 10:47:31 11:47:31 Procedure PRIMARY 350.1.13.10 ity of [place] [phone] Ia dical [address] 2021-07-25 2021-07-25 Ancillary Nimco Desir 1.2.840.5 [id number] Univers 10:47:31 11:47:31 Procedure 35836.1.1 it y of 3.104.2.7 [place] .3.520817 Medica l .8 [place] 2021-07-25 2021-07-25 Outpatient R NIMCO DESIR [facility] [id number] Univers 00:00:00 00:00:00 ity of [facility] 2021-07-24 2021-07-24 Office FABY Gagnon 1.2.840.114 [id number] Univers 09:06:36 11:30:16 Visit Reina Marcelino 350.1.13.10 ity of [place] 4.2.7.2.686 [place] [phone] [facility] orin [address] 2021-07-24 2021-07-24 Office Kalin 1.2.840.7 [id number] Univers 09:06:36 11:30:16 Visit Reina Dunn 88310.1.1 i ty of 3.104.2.7 [place] .3.616256 Medica l .8 [place] 2021-07-24 2021-07-24 Outpatient R KALIN [facility] [id number] Univers 09:00:00 11:30:16 REINA galindoy of [facility] 2021-07-24 2021-07-24 Outpatient [facility] [id number] Univers 09:00:00 09:00:00 REINA ity [facility] 2021-07-24 2021-07-24 Travel 1.2.840.1 1.2.829.171 5299 6458 Univers 00:00:00 00:00:00 41034.1.1 350.1.13.10 ity of 3.104.2.7 4.[place].7.3.698 [place] .3.877379 084.8 Medica l .8 [place] 2021-07-19 2021-07-19 [facility] JL DeeIT 1.2.840.114 [id number] Univers 14:00:00 23:59:00 Encounter Teresa [facility] 350.1.13.10 ity of [place] 4[place] [phone] [facility] [address] 2021-07-19 2021-07-19 Hospital Luiz, UNIVERSIT 1.2.840.114 [id number] [id number] Univers 14:00:00 23:59:00 Encounter Teresa Gomez HEALTH 350.1.13.10 ity of [place] [phone] [facility] [address] 2021-07-19 2021-07-19 [facility], 1.2.840.2 [id number] 5395 Univers 14:00:00 23:59:00 Encounter Teresa 46405.1.[address] [facility] 3.104.2.7 [place] .3.217384 Medica l .8 [place] 2021-07-19 2021-07-19 Nurse 5, [facility] Infusion Chair UNIVERSIT 1. 2.840.114 [id number] Univers 08:18:09 10:18:09 Visit Luis Harley [facility] 350.1.13.10 ity of [place] 4[place].2.[place] [id number] [facility] [address] 2021-07-19 2021-07-19 Nurse 5, [facility] Infusion Chair UNIVERSIT 1. 2.840.114 [id number] Univers 08:18:09 10:18:09 Visit Luis Harley [facility] 350.1.13.10 ity of [place] [id number] [facility] [address] 2021-07-19 2021-07-19 Nurse Cricket, Finesse.2.840.4 [id number] Univers 08:18:09 10:18:09 Visit Luis 53295.1.1 ity of 3.104.2.7 [place] .3.322121 Medica l .8 [place] 2021-07-19 2021-07-19 Outpatient R LUIS HARLEY [facility] [id number] Univers 09:00:00 09:00:00 LUIS HARLEY ity of [facility] 2021-07-19 2021-07-19 Travel 1.2.840.1 1.2.503.481 6720 7330 Univers 00:00:00 00:00:00 15900.1.1 350.1.13.10 ity of 3.104.2.7 4.[place].7.3.698 [place] .3.417347 084.8 Medica l .8 [place] 2021-07-18 2021-07-18 [facility] Luiz, UNIVERSIT 1.2.840.114 [id number] [id number] Univers 13:54:37 23:59:00 Encounter Teresa Y HEALTH 350.1.13.10 [place] [phone] [facility] [address] [place] 2021-07-18 2021-07-18 [facility] 1.[facility].840.114 [id number] [id number] Univers 13:54:37 23:59:00 Encounter Teresa Y HEALTH 350.1.13.10 [place] [id number] [facility] [address] 2021-07-18 2021-07-18 [facility], 1.2.840.5 [id number] Univers 13:54:37 23:59:00 Encounter Teresa 28703.1.1 it y of [place] 3.104.2.7 [place] .3.095903 Medica l .8 [place] 2021-07-18 2021-07-18 Outpatient Lavelle DEE, [facility] [id number] Univers 00:00:00 00:00:00 TERESA ity of [facility] 2021-07-18 2021-07-18 Telephone FABY Harley 1.2.840.114 [id number] Univers 00:00:00 00:00:00 Luis H 350.1.13.10 it y of [place] 4.2.7.2.686 [place] [id number] [facility] [address] [place] 2021-07-18 2021-07-18 Telephone FABY Harley 1.2.840.114 87 [id number] Univers 00:00:00 00:00:00 Luis H 350.1.13.10 it y of [place] 4.2.7.2.686 [place] [phone] [facility] orin [address] [place] 2021-07-18 2021-07-18 Telephone Cricket, 1.2.840.8 [id number] [id number] Univers 00:00:00 00:00:00 Luis 39201.1.1 ity of 3.104.2.7 [place] .3.593236 Medica l .8 [place] 2021-07-18 2021-07-18 Travel 1.2.840.1 1.2.072.803 4673 2256 Univers 00:00:00 00:00:00 86501.1.1 350.1.13.10 ity of 3.104.2.7 4.[place].7.3.698 [place] .3.567386 084.8 Medica l .8 [place] 2021-07-17 2021-07-17 Personal Shopper Jamie, Vonda Lab Main [facility] 1.2.8 40.114 [id number] Univers 11:17:28 11:32:28 Visit Luis Harley 350.1.13.10 ity of [place].2.[place] [phone] Ia dical nal [address] [facility] 2021-07-17 2021-07-17 Personal Shopper Jamie, Vonda Lab Main [facility] 1.2.8 40.114 [id number] Univers 11:17:28 11:32:28 Visit Luis Harley 350.1.13.10 ity of [place] 4.2[place]7.2.[place] [phone] Ia dical nal [address] [facility] 2021-07-17 2021-07-17 Personal Shopper Luis Harley 1.2.840.1 75906 [id number] Univers 11:17:28 11:32:28 Visit Vonda Ayala Lab Main 85222.1.1 ity of 3.104.2.7 [place] .3.375445 Medica l .8 [place] 2021-07-17 2021-07-17 Outpatient R LUIS HARLEY [facility] [id number] Univers 11:00:00 11:00:00 LUIS HARLEY ity of [facility] 2021-07-15 2021-07-15 Office FABY Harley 1.2.032.001 [id number] 7581 Univers 09:22:40 10:00:32 Visit Luis Marcelino 350.1.13.10 it y of [place] 4.2.7.2.686 [place] [id number] [address] 2021-07-15 2021-07-15 Office FABY Harley 1.2.426.864 8434 7581 Univers 09:22:40 10:00:32 Visit Luis Marcelino 350.1.13.10 it y of [place] 4.2.7.2.686 [place] [phone] [address] 2021-07-15 2021-07-15 Office Harley, 1.2.840.4 [id number] 581 Univers 09:22:40 10:00:32 Visit Luis 43144.1.1 ity of 3.104.2.7 [place] .3.206268 Medica l .8 [place] 2021-07-15 2021-07-15 Office FABY Harley 1.2.270.724 5547 7581 Univers 09:22:40 10:00:32 Visit Luis Marcelino 350.1.13.10 it y of [place] 4.2.7.2.686 [place] [phone] [address] 2021-07-15 2021-07-15 Outpatient R LUIS HARLEY [facility] [id number] Univers 09:40:00 09:40:00 LUIS HARLEY ity of [facility] 2021-07-15 2021-07-15 Travel 1.2.840.1 1.2.789.200 4864 3189 Univers 00:00:00 00:00:00 72195.1.1 350.1.13.10 ity of 3.104.2.7 4.[place]7.3.698 [place] .3.685907 084.8 Medica l .8 [place] 2021-07-12 2021-07-12 Telephone FABY Harley 1.2.840.114 87 [id number] Univers 00:00:00 00:00:00 Luis H 350.1.13.10 it y of [place] 4.2.7.2.686 [place] [phone] [facility] [address] [place] 2021-07-12 2021-07-12 Telephone Cricket, 1.2.840.5 [id number] Univers 00:00:00 00:00:00 Luis 35182.1.1 ity of 3.104.2.7 [place] .3.734413 Medica l .8 [place] 2021-07-12 2021-07-12 Telephone FABY Harley 1.2.840.114 87 [id number] Univers 00:00:00 00:00:00 Luis H 350.1.13.10 it y of [place] 4.2.7.2.686 [place] [phone] [place] 483690 [place] 2021-07-12 2021-07-12 Telephone FABY Harley 1.2.840.114 87 [id number] Univers 00:00:00 00:00:00 Luis H 350.1.13.10 it y of [place] 4.2.7.2.686 [place] as [id number] [facility] [address] [place] 2021-07-12 2021-07-12 Telephone FABY Harley 1.2.840.114 87 [id number] Univers 00:00:00 00:00:00 Luis H 350.1.13.10 it y of [place] 4.2.7.2.686 [place] [phone] [facility] [address] [place] 2021-07-11 2021-07-11 [facility], [facility] 1.2.840.114 [id number] Univers 08:29:20 23:59:00 Encounter Andrei Torres 350.1.13.10 ity of [place] 4.2.7.2.686 [place] [facility] [phone] [facility] [address] 2021-07-11 2021-07-11 [facility], 1.2.840.3 [id number] 6898 Univers 08:29:20 23:59:00 Encounter Qiangjun 19509.1.1 i ty of 3.104.2.7 [place] .3.867479 Medica l .8 [place] 2021-07-11 2021-07-11 [facility] 1.2.840.114 [id number] Univers 08:29:20 23:59:00 Encounter Qiangjun Whiting 350.1.13.10 ity of [place] 4.2.7.2.[address] [facility] [id number] [facility] [address] 2021-07-11 2021-07-11 [facility] 1.2.840.114 [id number] Univers 08:28:35 08:28:35 Encounter Qiangjun Whiting 350.1.13.10 ity of [place] 4.2.7.2.686 [facility] [phone] [facility] [address] [place] 2021-07-11 2021-07-11 [facility], 1.2.840.3 [id number] 6899 Univers 08:28:35 08:28:35 Encounter Qiangjun 06431.1.1 i ty of 3.104.2.7 [place] .3.505047 Medica l .8 [place] 2021-07-11 2021-07-11 [facility] 1.2.840.114 [id number] [id number] Univers 08:28:35 08:28:35 Encounter Qiangjun Whiting 350.1.13.10 ity of [place] 4.2.7.2.686 [facility] [phone] [facility] [address] 2021-07-11 2021-07-11 [facility] 1.2.840.114 [id number] Univers 08:28:13 08:28:13 Encounter Qiangjun Whiting 350.1.13.10 ity of [place] 4.2.7.2.686 [facility] [id number] [facility] [address] 2021-07-11 2021-07-11 [facility], 1.2.840.2 [id number] Univers 08:28:13 08:28:13 Encounter Qiangjun 26281.1.1 i ty of 3.104.2.7 [place] .3.191505 Medica l .[address] [place] 2021-07-11 2021-07-11 [facility] 1.2.840.114 [id number] Univers 08:28:13 08:28:13 Encounter Andrei Torres 350.1.13.10 ity of [place] 4.2.7.2.686 [facility] [id number] [facility] [address] 2021-07-11 2021-07-11 [facility] 1.2.840.114 [id number] Univers 08:27:53 08:27:53 Encounter Andrei Arevaloton 350.1.13.10 ity of [place] 4.2.7.2.686 [facility] [id number] [facility] [address] 2021-07-11 2021-07-11 [facility], 1.2.840.2 [id number] Univers 08:27:53 08:27:53 Encounter Lingchelostuart 52914.1.1 i ty of 3.104.2.7 [place] .3.604103 Medica l .[address] 2021-07-11 2021-07-11 [facility] 1.2.840.114 [id number] Univers 08:27:53 08:27:53 Encounter Andrei Arevaloton 350.1.13.10 ity of [place] 4.2.7.2.686 [facility] [id number] [place] [id number] [place] 2021-07-11 2021-07-11 [facility] [id number] Univers 00:00:00 00:00:00 ANDREI quispe o f [facility] 2021-07-09 2021-07-09 Outpatient Lavelle GAGNON [facility] [id number] Univers 14:30:00 14:30:00 REINA quispe [facility] 2021-07-09 2021-07-09 Outpatient Lavelle GAGNON [facility] [id number] Univers 14:30:00 14:30:00 REINA quispe [facility] 2021-07-05 2021-07-05 Outpatient Lavelle HAINES [facility] [id number] Univers 09:40:00 09:40:00 ELISE josiecatina of [facility] 2021-07-04 2021-07-04 Outpatient R LEAH [facility] [id number] Univers 09:00:00 09:00:00 TAYLER quispe [facility] 2021-07-04 2021-07-04 Office Leah, JLIT [id number] Univers 08:43:34 08:58:34 Visit Tayler Gomez [facility] 350.1.13.10 i ty of [facility] [id number] [address] 2021-07-04 2021-07-04 Office JOAN Lynn [id number] [id number] Univers 08:43:34 08:58:34 Visit [place] Catina [facility] 350.1.13.10 i ty of [facility] [id number] [address] 2021-07-02 2021-07-02 [facility] 1.2.840.114 [id number] Univers 10:42:53 23:59:00 Encounter Luis Torres 350.1.13.10 ity of [place] 4.2.7.2.686 [facility] [id number] [address] 2021-07-02 2021-07-02 [facility] 1.2.840.114 [id number] Univers 10:42:53 23:59:00 Encounter Luis Torres 350.1.13.10 ity of [place] 4.2.7.2.686 [facility] [id number] [address] 2021-07-02 2021-07-02 Outpatient LUIS WHITE [facility] [id number] Univers 00:00:00 00:00:00 LUIS HARLEY [facility] 2021-06-28 2021-06-28 Nurse 2, [facility] Infusion Chair UNIVERSIT 1. 2.840.114 [id number] Univers 08:39:10 10:39:10 Visit Luis Harley [facility] 350.1.13.10 it[place] [id number] [address] 2021-06-28 2021-06-28 Nurse 2, [facility] Infusion Chair UNIVERSIT 1. 2.840.114 [id number] Univers 08:39:10 10:39:10 Visit Luis Harley LAURIE 350.1.13.10 it[place] [id number] [address] 2021-06-28 2021-06-28 Outpatient R LUIS HARLEY [facility] [id number] Univers 08:30:00 08:30:00 LUIS HARLEY ity of [facility] 2021-06-28 2021-06-28 Telephone FABY Harley 1.2.840.114 [id number] Univers 00:00:00 00:00:00 Luis Marcelino 350.1.13.10 it y of [facility] 4.2.7.2.686 [place] [phone] [address] 2021-06-28 2021-06-28 Telephone FBAY Harley 1.2.840.114 [id number] Univers 00:00:00 00:00:00 Luis Marcelino 350.1.13.10 it y of [facility] 4.2.7.2.686 [place] [phone] [address] 2021-06-27 2021-06-27 Personal Shopper Vonda Ayala Lab Main [facility] 1.2.8 40.114 [id number] Univers 09:37:24 09:52:24 Visit Luis Harley 350.1.13.10 ity of [place] [phone] [facility] [address] [facility] 2021-06-27 2021-06-27 Personal Shopper Vonda Ayala Lab Main [facility] 1.2.8 40.114 [id number] Univers 09:37:24 09:52:24 Visit Luis Harley 350.1.13.10 ity of [place] [phone] Ia dical nal [address] [facility] 2021-06-27 2021-06-27 Outpatient R LUIS HARLEY [facility] [id number] Univers 09:45:00 09:45:00 LUIS HARLEY jose enrique [facility] 2021-06-20 2021-06-20 Personal Shopper 2, Adc Lab [facility] 1.2.840.114 [id number] Univers 13:53:27 14:08:27 Visit Elise Haines 350.1.13.10 ity [facility] [place] [phone] Ia dical nal [address] [facility] 2021-06-20 2021-06-20 Office Yancy [facility] 1.2.840.114 [id number] Univers 11:55:42 13:50:44 Visit Elise Torres 350.1.13.10 i ty [facility] [place] [phone] Ia dical nal [address] [facility] 2021-06-20 2021-06-20 Outpatient R EBEN [facility] [id number] Univers 11:50:00 11:50:00 BENNIE jose enrique [facility] 2021-06-18 2021-06-18 Office FABY Harley 1.2.390.689 [id number] Univers 14:58:08 15:18:08 Visit Luis Marcelino 350.1.13.10 it y of [facility] 4.2.7.2.686 [place] [phone] [address] 2021-06-18 2021-06-18 Office FABY Harley 1.2.656.852 [id number] Univers 14:58:08 15:18:08 Visit Luis Marcelino 350.1.13.10 it y of [facility] 4.2.7.2.686 [place] [phone] [address] 2021-06-18 2021-06-18 Office FABY Harley 1.2.188.722 [id number] Univers 14:58:08 15:18:08 Visit Luis Chavez.1.13.10 it y of [facility] 4.2.7.2.686 [place] [phone] [facility] [address] 2021-06-18 2021-06-18 Outpatient R LUIS HARLEY [facility] [id number] Univers 15:00:00 15:00:00 LUIS HARLEY [facility] 2021-06-17 2021-06-17 [facility] 1.2.840.114 [id number] Univers 12:45:10 23:59:00 Encounter Luis Torres 350.1.13.10 ity [facility] [place] [phone] [facility] [address] 2021-06-17 2021-06-17 Outpatient R LUIS HARLEY [facility] [id number] Univers 00:00:00 00:00:00 LUIS HARLEY josiecatina [facility] 2021-06-11 2021-06-11 [facility] 1.2.840.114 [id number] Univers 13:24:47 14:20:29 Visit Elise Torres 350.1.13.10 i ty [facility] [place] [phone] Ia dical nal [address] [facility] 2021-06-11 2021-06-11 Outpatient R YANCY [facility] [id number] Univers 13:40:00 13:40:00 ELISE quispe [facility] 2021-06-11 2021-06-11 Office [facility] 1.2.840.114 [id number] Univers 10:54:59 11:14:59 Visit Andrei Torres 350.1.13.10 ity [facility] [place].2.[place] [phone] Ia dical nal [address] [facility] 2021-06-11 2021-06-11 Out[facility] [id number] Univers 11:00:00 11:00:00 ANDREI quispe o f [facility] 2021-06-10 2021-06-10 Nurse Nurse, [facility] Infusion UNIVERSIT 1.2. 840.114 [id number] Univers 07:58:23 08:13:23 Visit Luis Harley [facility] 350.1.13.10 ity of [place] [id number] [address] 2021-06-10 2021-06-10 Outpatient LUIS WHITE [facility] [id number] Univers 08:00:00 08:00:00 LUIS HARLEY [facility] 2021-06-07 2021-06-07 Nurse 4, [facility] Infusion Chair UNIVERSIT 1. 2.840.114 [id number] Univers 10:30:43 11:30:43 Visit Luis Harley [facility] 350.1.13.10 it[place] [id number] [address] 2021-06-07 2021-06-07 Outpatient R LUIS HARLEY [facility] [id number] Univers 11:00:00 11:00:00 LUIS HARLEY [facility] 2021-06-06 2021-06-06 Nurse 5, [facility] Infusion Chair UNIVERSIT 1. 2.840.114 [id number] Univers 07:59:19 09:29:19 Visit Luis Harley [facility] 350.1.13.10 ity of [place] [id number] [address] 2021-06-06 2021-06-06 Outpatient R LUIS HARLEY [facility] [id number] Univers 08:00:00 08:00:00 LUIS HARLEY [facility] 2021-06-05 2021-06-05 Nurse 4, [facility] Infusion Chair UNIVERSIT 1. 2.840.114 [id number] Univers 11:33:21 15:03:21 Visit Luis Harley [facility] 350.1.13.10 ity of [place] [id number] [address] 2021-06-05 2021-06-05 Outpatient R LUIS HARLEY [facility] [id number] Univers 11:30:00 11:30:00 HARLEYJAYLUIS josiecatina [facility] 2021-06-04 2021-06-04 Personal Shopper Jamie, Vonda Lab Main [facility] 1.2.8 40.114 [id number] Univers 10:54:09 11:09:09 Visit Luis Harley 350.1.13.10 ity [facility] 4.2.7.2.[place] [phone] [facility] [address] [facility] 2021-06-04 2021-06-04 Outpatient R HARLEYJAYLUIS [facility] [id number] Univers 10:30:00 10:30:00 LUIS HARLEY catina [facility] 2021-06-04 2021-06-04 Case FABY Harley 1.2.663.645 [id number] Univers 00:00:00 00:00:00 Management Luis Marcelino 350.1.13.10 ity [facility] 4.2.7.2.686 [place] [phone] [address] 2021-05-30 2021-05-30 Outpatient Lavelle GORE [facility] [id number] Univers 15:10:00 15:10:00 BENNIE catina [facility] 2021-05-21 2021-05-21 Outpatient R HARLEY, LUIS [facility] [id number] Univers 15:40:00 15:40:00 LUIS HARLEY [facility] 2021-05-21 2021-05-21 Office FABY Harley 1.2.171.688 [id number] Univers 10:23:30 11:06:03 Visit Luis Marcelino 350.1.13.10 it y of [facility] 4.2.7.2.686 [place] [id number] [address] 2021-05-17 2021-05-17 Nurse 2, [facility] Adult Infusion Nurse DANNY PALACIO 1.2.840.114 [id number] Univers 09:08:41 11:08:41 Visit Luis Harley [facility] 350.1.13.10 ity of [place] [id number] [address] 2021-05-17 2021-05-17 Outpatient LUIS WHITE [facility] [id number] Univers 09:30:00 09:30:00 LUIS HARLEY [facility] 2021-05-16 2021-05-16 Nurse 3, [facility] Adult Infusion Nurse [place] 1.2.840.114 [id number] Univers 13:53:13 15:53:13 Visit Luis Harley [facility] 350.1.13.10 ity of [place] [id number] [address] 2021-05-16 2021-05-16 Outpatient LUIS WHITE [facility] [id number] Univers 14:00:00 14:00:00 LUIS HARLEY [facility] 2021-05-15 2021-05-15 Nurse 2, [facility] Adult Infusion Nurse [place] 1.2.840.114 [id number] Univers 12:26:20 15:56:20 Visit Luis Harley [facility] 350.1.13.10 it[place] of [place] [id number] [address] 2021-05-15 2021-05-15 Nurse 2, [facility] Adult Infusion Nurse [place] 1.2.840.114 [id number] Univers 12:26:20 15:56:20 Visit Luis Harley HEALTH 350.1.13.10 ity of [place] [id number] [address] 2021-05-15 2021-05-15 Outpatient LUIS WHITE [facility] [id number] Univers 12:30:00 12:30:00 LUIS HARLEY [facility] 2021-05-13 2021-05-13 Telephone FABY Harley 1.2.840.114 [id number] Univers 00:00:00 00:00:00 Luis Marcelino 350.1.13.10 it y of [facility] 4.2.7.2.686 [place] [phone] [facility] [address] 2021-05-10 2021-05-10 Personal Shopper Vonda Ayala Lab Main [facility] 1.2.8 40.114 [id number] Univers 13:58:50 14:13:50 Visit Harley Luis Torres 350.1.13.10 ity [facility] 4[place].2.[place] [phone] Ia dical [facility] [address] [facility] 2021-05-10 2021-05-10 Outpatient R LUIS HARLEY [facility] [id number] Univers 13:45:00 13:45:00 LUIS HARLEY [facility] 2021-05-10 2021-05-10 Case HarleyOLVIN duran 1.2.840.114 [id number] Univers 00:00:00 00:00:00 Management Luis RICHTER 350.1.13.[address]2.686 [place] [phone] [facility] [address] 2021-05-10 2021-05-10 Hardik CricketOLVIN 1.2.840.114 [id number] Univers 00:00:00 00:00:00 Management Luis RICHTER 350.1.13.10 [address]y [address]7.2.686 [place] [phone] [address] 2021-05-10 2021-05-10 Hardik HarleyOLVIN duran 1.2.840.114 [id number] Univers 00:00:00 00:00:00 Management Luis RICHTER 350.1.13.10 ity of [address]686 [place] [id number] [address] 2021-05-07 2021-05-07 Outpatient R LUIS HARLEY [facility] [id number] Univers 11:45:00 11:45:00 LUIS HARLEY [facility] 2021-04-24 2021-04-24 Outpatient R JAYLENE [facility] [id number] Univers 15:00:00 15:00:00 SENDIL ity [facility] 2021-04-23 2021-04-23 Office FABY Harley 1.2.737.362 [id number] Univers 14:26:07 14:46:07 Visit Luis Marcelino 350.1.13.10 it y of [facility] 4.2.7.2.686 [place] [id number] [facility] [address] 2021-04-23 2021-04-23 Outpatient R LUIS HARLEY [facility] [id number] Univers 14:30:00 14:30:00 LUIS HARLEY catina [facility] 2021-04-18 2021-04-18 Outpatient R YANCY [facility] [id number] Univers 14:00:00 14:00:00 ELISE [facility] 2021-04-16 2021-04-16 [facility] 1.2.840.114 [id number] Univers 12:47:31 23:59:00 Encounter Luis Torres 350.1.13.10 ity [facility] 4.2.7.2.[address] [facility] [id number] [facility] [address] 2021-04-16 2021-04-16 Hospital [facility] 1.2.840.114 [id number] Univers 12:45:01 12:46:00 Encounter Luis Torres 350.1.13.10 ity of [place] 4.2.7.2.[address] [facility] [id number] [facility] [address] 2021-04-16 2021-04-16 Outpatient R LUIS HARLEY [facility] [id number] Univers 00:00:00 00:00:00 LUIS HARLEY [facility] 2021-04-08 2021-04-08 Outpatient LUIS WHITE [facility] [id number] Univers 08:00:00 08:00:00 LUIS HARLEY [facility] 2021-04-05 2021-04-05 Nurse Nurse, [facility] Infusion UNIVERSIT 1.2. 840.114 [id number] Univers 13:03:52 14:33:52 Visit Luis Harley [facility] 350.1.13.10 ity [place] [id number] [address] 2021-04-05 2021-04-05 Outpatient LUIS WHITE [facility] [id number] Univers 13:00:00 13:00:00 LUIS HARLEY [facility] 2021-04-04 2021-04-04 Nurse 2, [facility] Adult Infusion Nurse [place] 1.2.840.114 [id number] Univers 10:00:22 11:30:22 Visit Luis Harley [facility] 350.1.13.10 ity of [place] [id number] [address] 2021-04-04 2021-04-04 Outpatient LUIS WHITE [facility] [id number] Univers 10:00:00 10:00:00 LUIS HARLEY [facility] 2021-04-03 2021-04-03 Nurse 3, [facility] Adult Infusion Nurse [place] 1.2.840.114 [id number] Univers 09:56:53 11:56:53 Visit Luis Harley [facility] 350.1.13.10 ity of [place] [id number] [address] 2021-04-03 2021-04-03 Outpatient LUIS WHITE [facility] [id number] Univers 10:00:00 10:00:00 LUIS HARLEY [facility] 2021-04-02 2021-04-02 Office CricketFABY 1.2.661.919 [id number] Univers 15:50:30 16:14:04 Visit Luis Marcelino 350.1.13.10 it y of BUILDING 4.2.7.2.686 [place] [id number] [address] 2021-04-02 2021-04-02 Outpatient LUIS WHITE [facility] [id number] Univers 15:40:00 15:40:00 LUIS HARLEY josiecatina [facility] 2021-04-02 2021-04-02 Personal Shopper Jamie, Adc Lab Main [facility] 1.2.8 40.114 [id number] Univers 10:22:42 10:37:42 Visit Luis Harley 350.1.13.10 ity [place] [phone] Ia dical [facility] [address] 2021-03-22 2021-03-22 Orders Doctor OLVIN 1.2.840.114 [id number] Univers 00:00:00 00:00:00 Only Unassigned, NIKOLAI 350.1.13.10 ity of [facility] 4.2.7.2.686 [place] [phone] [address] 2021-03-20 2021-03-20 Outpatient R LUIS HARLEY [facility] [id number] Univers 13:40:00 13:40:00 LUSI HARLEY [facility] 2021-03-14 2021-03-14 Telephone FABY Harley 1.2.840.114 [id number] Univers 00:00:00 00:00:00 Luis Marcelino 350.1.13.10 it y of BUILDING 4.2.7.2.686 [place] [id number] [address] 2021-03-13 2021-03-13 Outpatient R LUIS HARLEY [facility] [id number] Univers 13:45:00 13:45:00 LUIS HARLEY [facility] 2021-03-12 2021-03-12 Outpatient R LUIS HARLEY [facility] [id number] Univers 00:00:00 00:00:00 LUIS HARLEY [facility] 2021-03-11 2021-03-11 Telephone FABY Harley 1.2.840.114 [id number] Univers 00:00:00 00:00:00 Luis Marcelino 350.1.13.10 it y of BUILDING 4.2.7.2.686 [place] [id number] [address] 2021-03-04 2021-03-04 Outpatient R LUIS HARLEY [facility] [id number] Univers 10:30:00 10:30:00 LUIS HARLEY [facility] 2021-02-26 2021-02-26 Outpatient LUIS WHITE [facility] [id number] Univers 11:00:00 11:00:00 LUIS HARLEY [facility] 2021-02-26 2021-02-26 Telephone FABY Harley 1.2.840.114 [id number] Univers 00:00:00 00:00:00 Luis Marcelino 350.1.13.10 it y of BUILDING 4.2.7.2.686 [place] [id number] [place] [address] 2021-02-25 2021-02-25 Nurse 2, [facility] Adult Infusion Nurse DANNY SIT 1.2.840.114 [id number] Univers 10:29:24 12:29:24 Visit Nilsa Harleye Catina [facility] 350.1.13.10 ity of [facility] 4.2.7.2.[place] [id number] [facility] [address] 2021-02-25 2021-02-25 Outpatient R LUIS HARLEY [facility] [id number] Univers 10:30:00 10:30:00 LUIS HARLEY [facility] 2021-02-22 2021-02-22 Telephone FABY Harley 1.2.840.114 [id number] Univers 00:00:00 00:00:00 Luis Marcelino 350.1.13.10 it y of BUILDING 4.2.7.2.686 [place] [phone] [place] [address] 2021-02-22 2021-02-22 Case FABY Harley 1.2.947.630 [id number] Univers 00:00:00 00:00:00 Management Luis Marcelino 350.1.13.10 ity of BUILDING 4.2.7.2.686 [place] [id number] [place] [address] 2021-02-20 2021-02-20 Office FABY Harley 1.2.248.022 [id number] Univers 15:16:55 17:01:26 Visit Luis Marcelino 350.1.13.10 it y of [facility] 4.2.7.2.686 [place] [id number] [facility] [address] 2021-02-20 2021-02-20 Outpatient R NILSA HARLEYE [facility] [id number] Univers 15:00:00 15:00:00 CRICKET LUIS quispe [facility] 2021-02-20 2021-02-20 Personal Shopper [facility] UNIVERSIT 1.2.840.114 [id number] Univers 14:36:10 14:51:10 Visit Jay Harleyuricoseas Gomez [facility] 350.1.13.10 ity [facility] 4.2.7.2.[place] [id number] [facility] [address] 2021-02-13 2021-02-13 Personal Shopper 2, [facility] Lab [facility] 1.2.840.114 [id number] Univers 15:02:45 15:17:45 Visit Elise Haines 350.1.13.10 ity [facility] 4.2.7.2.[place] [phone] Ia dical nal [address] [facility] 2021-02-13 2021-02-13 Office [facility] 1.2.840.114 [id number] [facility] [place] 13:17:33 14:59:35 Visit Elise Torres 350.1.13.10 i ty of [place] [phone] Ia dical nal [address] [facility] 2021-02-13 2021-02-13 Outpatient R YANCY [facility] [id number] Univers 13:20:00 13:20:00 ELISE quispe [facility] 2021-02-07 2021-02-07 Outpatient R LUIS HARLEY [facility] [id number] Univers 14:30:00 14:30:00 LUIS HARLEY [facility] 2021-02-07 2021-02-07 Nurse Nurse, [facility] Infusion UNIVERSIT 1.2. 840.114 [id number] Univers 14:13:23 14:28:23 Visit Luis Harley [facility] 350.1.13.10 ity of [place] [id number] [address] 2021-02-07 2021-02-07 Outpatient R ALICE SEBASTIAN [facility] [id number] Univers 09:20:00 09:20:00 ALICE SEBASTIAN i ty of [facility] 2021-02-06 2021-02-06 Nurse Nurse, [facility] Infusion UNIVERSIT 1.2. 840.114 [id number] Univers 12:04:53 13:34:53 Visit Luis Harley [facility] 350.1.13.10 ity of [place] [id number] [address] 2021-02-06 2021-02-06 Outpatient R LUIS HARLEY [facility] [id number] Univers 12:30:00 12:30:00 LUIS HARLEY [facility] 2021-02-05 2021-02-05 Nurse 2, [facility] Adult Infusion Nurse [place] 1.2.840.114 [id number] Univers 12:30:01 14:00:01 Visit Luis Harley [facility] 350.1.13.10 ity of [place] [id number] [address] 2021-02-05 2021-02-05 Outpatient R LUIS HARLEY [facility] [id number] Univers 12:30:00 12:30:00 LUIS HARLEY itcatina [facility] 2021-02-05 2021-02-05 Telephone OLVIN Sanches 1.2.267.432 [id number] Univers 00:00:00 00:00:00 Chantel RICHTER 350.1.13.10 i ty of [facility] 4.2.7.2.686 [place] [id number] [address] 2021-02-04 2021-02-04 Nurse 3, [facility] Adult Infusion Nurse [place] 1.2.840.114 [id number] Univers 11:25:24 13:25:24 Visit Luis Harley [facility] 350.1.13.10 ity of [place] [id number] [facility] [address] 2021-02-04 2021-02-04 Outpatient R LUIS HARLEY [facility] [id number] Univers 11:30:00 11:30:00 LUIS HARLEY [facility] 2021-02-04 2021-02-04 Case FABY Snow 1.2.840.114 [id number] Univers 00:00:00 00:00:00 Management [facility] 350.1.13.10 ity of [facility] 4.2.7.2.686 [place] [id number] [facility] [address] 2021-02-01 2021-02-01 Personal Shopper [facility] UNIVERS 1.2.840.114 [id number] Univers 13:03:52 13:18:52 Visit HarleyNilsa durane Catina [facility] 350.1.13.10 ity of [place] [id number] [facility] [address] 2021-02-01 2021-02-01 Office JL Wade 1.2.561.887 [id number] Univers 09:21:47 11:56:35 Visit Madhu Lee [facility] 350.1.13.10 i ty of [place] [id number] [facility] [address] 2021-02-01 2021-02-01 Outpatient Lavelle WADE [facility] [id number] Univers 08:45:00 08:45:00 MADHU quispe [facility] 2021-02-01 2021-02-01 Personal Shopper 1, [facility] Lab [facility] 1.2.840.114 [id number] Univers 07:34:13 07:49:13 Visit Luis Harley [place] 350.1.13.10 ity of [place] [id number] [facility] [address] 2021-02-01 2021-02-01 Case FABY Harley 1.2.914.220 [id number] Univers 00:00:00 00:00:00 Management Luis Marcelino 350.1.13.10 ity of BUILDING 4.2.7.2.686 [place] [id number] [place] [address] 2021-01-30 2021-01-30 Office Cricket FABY 1.2.229.783 [id number] Univers 15:13:21 16:04:18 Visit Luis Marcelino 350.1.13.10 it y of BUILDING 4.2.7.2.686 [place] [id number] [place] [address] 2021-01-30 2021-01-30 Outpatient R HARLEYLUIS [facility] [id number] Univers 15:20:00 15:20:00 CRICKET LUIS ity of [facility] 2021-01-30 2021-01-30 Case Ollie FABY 1.2.724.131 [id number] Univers 00:00:00 00:00:00 Management Daniel Marcelino 350.1.13.10 ity of BUILDING 4.2.7.2.686 [place] [id number] [address] 2021-01-29 2021-01-29 Personal Shopper Vonda Ayala Lab Main [facility] 1.2.8 40.114 [id number] Univers 11:38:57 11:53:57 Visit HarleyLuis duran 350.1.13.10 ity of [place] [phone] [facility] [address] [facility] 2021-01-29 2021-01-29 Outpatient R [facility] [id number] Univers 11:30:00 11:30:00 ity of [facility] 2021-01-29 2021-01-29 Case Ollie FABY 1.2.818.305 [id number] Univers 00:00:00 00:00:00 Management Daniel Marcelino 350.1.13.10 ity of BUILDING 4.2.7.2.686 [place] [id number] [address] 2021-01-24 2021-01-24 [facility], UNIVERSIT [id number] Univers 13:15:00 23:59:00 Encounter Shiwan Y HEALTH [id number] [id number] [id number] [facility] [address] 2021-01-24 2021-01-24 [facility] UNIVERSIT [id number] Univers 09:25:25 13:14:00 Encounter Luis Y HEALTH [id number] [place] [id number] [facility] [address] 2021-01-24 2021-01-24 Outpatient LUIS HARLEY [facility] [id number] Univers 10:00:00 10:00:00 LUIS HARLEY [facility] 2021-01-24 [facility] [id number] Univers 09:24:37 09:24:37 Encounter Luis Y HEALTH [id number] [id number] [id number] [facility] [address] 2021-01-24 2021-01-24 [facility] [id number] Univers 09:23:49 09:23:49 Encounter Luis Y HEALTH [id number] [place] [id number] [facility] [address] 2021-01-24 2021-01-24 Outpatient Lavelle HARLEYLUIS [facility] [id number] Univers 09:23:49 09:23:49 LUIS HARLEY [facility] 2021-01-24 2021-01-24 [facility] [id number] Univers 09:20:00 09:22:00 Encounter Luis Y HEALTH [id number] [place] [id number] [facility] [address] 2021-01-23 2021-01-23 Office FABY Gagnon 1.2.840.114 [id number] Univers 12:54:40 13:45:56 Visit Reina Marcelino 350.1.13.10 ity of BUILDING 4.2.7.2.686 [place] as [id number] [facility] [address] 2021-01-23 2021-01-23 Outpatient R KALIN [facility] [id number] Univers 13:00:00 13:00:00 REINA ity [facility] 2021-01-22 2021-01-22 [facility] Nimco Desir [facility] 1.2.840.114 [id number] Univers 08:27:00 23:59:00 Encounter Lo [facility] 350.1. 13.10 ity of [facility] [place] [phone] [facility] [address] 2021-01-22 2021-01-22 Outpatient R NIMCO DESIR [facility] [id number] Univers 00:00:00 00:00:00 ity of [facility] 2021-01-18 2021-01-18 [facility] 1.2.840.114 [id number] Univers 09:24:57 23:59:00 Encounter Alice GALINDO 350.1.13.10 ity of [facility] [place].2.[place] AT [phone] Ia scott MEREDITH [address] [place] [address] 2021-01-18 2021-01-18 Outpatient R ALICE SEBASTIAN [facility] 10 [id number] Univers 00:00:00 00:00:00 ALICE SEBASTIAN i ty [facility] 2021-01-16 2021-01-16 Office FABY Harley 1.2.013.517 [id number] Univers 13:00:10 13:55:48 Visit Luis Marcelino 350.1.13.10 it y of [facility] 4.2.7.2.686 [place] [phone] [facility] [address] 2021-01-16 2021-01-16 Outpatient R LUIS HARLEY [facility] [id number] Univers 13:00:00 13:00:00 LUIS HARLEY ity of [facility] 2021-01-14 2021-01-14 Laboratory Only, Adc Test [facility] 1.2.840. 114 [id number] Univers 12:48:41 13:03:41 Only Luis Harley 350.1.13.10 ity of [place] [phone] [facility] [address] 2021-01-14 2021-01-14 Outpatient R [facility] [id number] Univers 12:00:00 12:00:00 ity of [facility] 2021-01-11 2021-01-11 Telephone [facility] 1.2.946.750 [id number] Univers 00:00:00 00:00:00 Alice Torres 350.1.13.10 i ty of [place] [phone] [place] [id number] [facility] 2021-01-09 2021-01-09 Hospital Kierra Sebastian 1.2.840.114 [id number] Univers 09:41:00 16:02:00 Encounter Alice Richter 350.1.13.10 ity of [facility] 4.2.7.2.686 [place] [phone] [facility] [address] 2021-01-08 2021-01-08 Outpatient R [facility] [id number] Univers 15:30:00 15:30:00 ity [facility] 2021-01-08 2021-01-08 Laboratory Only, Adc Test [facility] 1.2.840. 114 [id number] Univers 15:08:29 15:23:29 Only Acosta Swartz 350.1.13.10 ity of [place] [phone] [facility] [address] 2021-01-07 2021-01-07 Telephone JOAN Sebastian 1.2.840.114 [id number] Univers 00:00:00 00:00:00 Shicarolyn [facility] 350.1.13.10 i ty of [facility] 4.2.7.2.[place] [phone] [facility] [address] 2021-01-04 2021-01-04 Telephone [facility] 1.2.422.211 [id number] Univers 00:00:00 00:00:00 Jonelleallisontammy Torres 350.1.13.10 i ty of [place] [phone] [address] 2021-01-03 2021-01-03 Office [facility] 1.2.840.114 [id number] Univers 15:24:19 15:54:19 Visit Alice Brian 350.1.13.10 i ty of [place] [phone] [address] 2021-01-03 2021-01-03 Outpatient R ALICE SEBASTIAN [facility] [id number] Univers 15:30:00 15:30:00 ALICE SEBASTIAN i ty of [facility] 2020-12-24 2020-12-24 Refill [facility] 1.2.840.114 [id number] Univers 00:00:00 00:00:00 Peter Brian 350.1.13.10 i ty of [place] [phone] [address] 2020-12-07 2020-12-07 Patient [facility] 1.2.840.114 [id number] Univers 00:00:00 00:00:00 Outreach Nelia Torres 350.1.13.10 ity of [place] [phone] [address] 2020-11-28 2020-11-28 Patient Luiz [facility] 1.2.840.114 [id number] Univers 00:00:00 00:00:00 Outreach Nelia Gibson [facility] 350.1.13.10 i ty of [place] 4.2.7.2.686 [place] Professio [phone] [address] Office Building [facility] 2020-11-27 2020-11-27 Telemedici [facility] 1.2.840.114 [id number] Univers 08:19:21 14:06:49 ne Visit Elise Torres 350.1.13.10 ity of [place] [phone] Ia dical nal [address] [place] [address] 2020-11-27 2020-11-27 Outpatient R [facility] 1030 [id number] Univers 09:20:00 09:20:00 ELISE quispe [facility] 2020-11-15 2020-11-15 [facility] 1.[facility].840.114 [id number] Univers 08:57:57 23:59:00 Encounter Elise SULLIVAN 350.1.13.10 ity of CL[place] [phone] [address] 2020-11-15 2020-11-15 [facility] 1.2.840.114 [id number] Univers 08:57:23 23:59:00 Encounter Elise SULLIVAN 350.1.13.10 ity of [facility] [phone] [address] 2020-11-15 2020-11-15 [facility] [id number] Univers 09:00:00 09:00:00 ELISE quispe [facility] 2020-11-14 2020-11-14 [facility] 1.2.840.114 [id number] Univers 15:25:23 16:15:46 Visit Elise Torres 350.1.13.10 i ty of [place] [phone] Ia dical nal [address] [place] [address] 2020-11-14 2020-11-14 Out[facility] 1030 [id number] Univers 15:20:00 15:20:00 ELISE quispe [facility] 2020-11-14 2020-11-14 Orders Doctor BAH 1.2.840.114 [id number] Univers 00:00:00 00:00:00 Only Unassigned, NIKOLAI 350.1.13.10 ity of [place] [facility] 4.2.7.2.686 [place] [phone] [facility] [address] 2020-11-07 2020-11-07 Emergency [facility] 1.2.093.717 [id number] Univers 09:23:00 14:10:00 Sean Torres 350.1.13.10 i ty [facility] 4.2.7.2.686 [place] [facility] [phone] [facility] [address] 2020-11-07 2020-11-07 Emergency X [facility] ERT [id number] Univers 09:23:00 14:10:00 SEAN josiecatina of [facility] 2020-11-07 2020-11-07 Urgent Provider, [facility] 1.2.840.114 [id number] Univers 08:16:05 09:12:03 Care Arpita Gonzalez [facility] 350.1.13.10 ity of [place] 4.2.7.2.686 [place] Profess[place] [phone] Ia dical [address] Office [address] [facility] 2020-11-07 2020-11-07 Outpatient R [facility] [id number] Univers 08:20:00 08:20:00 ity of [facility] 2020-11-07 2020-11-07 Letter Doctor OLVIN 1.2.840.114 [id number] Univers 00:00:00 00:00:00 (Out) Unassigned, NIKOLAI 350.1.13.10 ity of [place] [facility] 4.2.7.2.686 [place] [phone] [facility] [address] 2020-11-07 2020-11-07 Orders Doctor OLVIN 1.2.840.114 [id number] Univers 00:00:00 00:00:00 Only Unassigned, NIKOLAI 350.1.13.10 ity of [place] [facility] 4.2.7.2.686 [place] [phone] [facility] [address] 2020-11-06 2020-11-06 Telephone [facility] 1.2.840.114 [id number] Univers 00:00:00 00:00:00 Elise Torres 350.1.13.10 i ty of [place] [phone] Ia dical nal [address] [facility] 2020-11-05 2020-11-05 Telephone [facility] 1.2.840.114 [id number] Univers 00:00:00 00:00:00 Elise Torres 350.1.13.10 i ty of [place] [phone] Ia dical nal [address] [facility] 2020-11-01 2020-11-01 Office [facility] 1.2.456.935 [id number] Univers 07:51:54 08:14:30 Visit Chasity Torres 350.1.13.10 i ty of [place].2.[place] [phone] Ia dical nal [address] [facility] 2020-11-01 2020-11-01 Outpatient [facility] [id number] Univers 08:00:00 08:00:00 CHASITY quispe of [facility] 2020-10-30 2020-10-30 [facility] 1.2.840.114 [id number] Univers 14:46:03 23:59:00 Encounter Elise Torres 350.1.13.10 ity of [place] [phone] [facility] [address] 2020-10-30 2020-10-30 Outpatient R JOSÉ [facility]ELFIRELANDS [facility] [id number] Univers 00:00:00 00:00:00 ELISE quispe of [facility] 2020-10-30 2020-10-30 Orders Doctor BAH 1.2.840.114 [id number] Univers 00:00:00 00:00:00 Only Unassigned, NIKOLAI 350.1.13.10 ity of [place] [facility] 4.2.7.2.686 [place] [phone] [facility] [address] 2020-10-16 2020-10-16 Office Chasity Vanegas [facility] 1.2.840.1 14 [id number] Univers 15:42:21 16:55:58 Visit Rm, Adc Surg Spec Procedure Brian 3 50.1.13.10 ity of [place] [phone] Ia dical nal [address] [facility] 2020-10-16 2020-10-16 Outpatient R [facility] [id number] Univers 15:45:00 15:45:00 CHASITY quispe [facility] 2020-10-16 2020-10-16 Orders Doctor OLVIN 1.2.840.114 [id number] Univers 00:00:00 00:00:00 Only Unassigned, NIKOLAI 350.1.13.10 ity of [place] [facility] 4.2.7.2.686 [place] [phone] [address] 2020-10-12 2020-10-12 Refill [facility] 1.2.840.114 [id number] Univers 00:00:00 00:00:00 Elise Torres 350.1.13.10 i ty of [place] [phone] Ia dical nal [address] [facility] 2020-10-01 2020-10-01 Office [facility] 1.2.830.402 [id number] Univers 10:08:52 11:07:34 Visit Chasity Torres 350.1.13.10 i ty of [place].2.[place] [phone] Ia dical nal [address] [facility] 2020-10-01 2020-10-01 Outpatient R [facility] [id number] Univers 10:15:00 10:15:00 CHASITY quispe [facility] 2020-09-14 2020-09-14 [facility] 1.2.840.114 [id number] Univers 06:46:00 11:07:00 Encounter Chasity Torres 350.1.13.10 ity of [place].2.[place] Surgical [phone] [facility] [address] 2020-09-13 2020-09-13 Laboratory Only, Adc Test [facility] 1.2.840. 114 [id number] Univers 09:03:33 09:18:33 Only Chasity Vanegas 350.1.13.10 ity of [place].2.[place] [phone] [facility] [address] 2020-09-13 2020-09-13 Outpatient R [facility] [id number] Univers 09:00:00 09:00:00 CHASITY quispe of [facility] 2020-09-13 2020-09-13 Orders Doctor OLVIN 1.2.840.114 [id number] Univers 00:00:00 00:00:00 Only Unassigned, NIKOLAI 350.1.13.10 ity of [place] [facility] 4.2.7.2.686 [place] [phone] [address] 2020-08-23 2020-08-23 Telephone [facility] 1.2.840.114 [id number] Univers 00:00:00 00:00:00 Chasity Torres 350.1.13.10 i ty of [place]2.[place] [phone] Ia dical nal [address] [facility] 2020-08-17 2020-08-17 Telephone [facility] 1.2.840.114 [id number] Univers 00:00:00 00:00:00 Elise Torres 350.1.13.10 i ty of [place].7.2.[place] [phone] Ia dical nal [address] [facility] 2020-08-16 2020-08-16 Office [facility] 1.2.187.183 [id number] Univers 10:07:35 11:09:10 Visit Chasity Torres 350.1.13.10 i ty of [place] 4[place]2.[place].2.[place] [phone] Ia dical nal [address] [facility] 2020-08-16 2020-08-16 Outpatient R [facility]GASFIRELANDS [facility] [id number] Univers 10:30:00 10:30:00 CHASITY quispe [facility] 2020-08-15 2020-08-15 Office [facility] 1.2.840.114 [id number] Univers 14:35:59 15:46:44 Visit Elise Torres 350.1.13.10 i ty of [place] 4[place].2.[place] [phone] Ia dical [address] 2020-08-15 2020-08-15 Outpatient [facility]29 [id number] Univers 14:40:00 14:40:00 ELISE quispe [facility] 2020-08-08 2020-08-08 Outpatient R EDJOSÉ [facility]IG[facility]ELFIRELANDS [facility] [id number] Univers 09:44:07 23:59:00 ELISE quispe [facility] 2020-08-08 2020-08-08 [facility] 1.2.840.114 [id number] Univers 09:40:00 23:59:00 Encounter Elise Torres 350.1.13.10 ity of [place].2.[place] [phone] [address] 2020-08-08 2020-08-08 Outpatient R E[facility]MEWARDBAPTIST [facility] 1028 [id number] Univers 00:00:00 00:00:00 ELISE quispe [facility] 2020-08-03 2020-08-03 [facility] 1.2.840.114 [id number] Univers 14:37:52 14:57:52 Visit Elise Torres 350.1.13.10 i ty of [place].2.[place] [phone] Ia dical nal [address] [place] [address] 2020-08-03 2020-08-03 Outpatient R E[facility]MEWARDNGFIRELANDS [facility] [id number] Univers 14:40:00 14:40:00 ELISE quispe [facility] 2020-07-19 2020-07-19 Office [facility] 1.2.840.114 [id number] Univers 15:17:05 16:26:02 Visit Elise Torres 350.1.13.10 i ty of [place] 4[place]2.7.2.[place] [phone] Ia dical nal [address] [place] [address] 2020-07-19 2020-07-19 Outpatient R [facility]MEKONGFIRELANDS [facility] [id number] [facility] [place] 09:40:00 09:40:00 ELISE jose enrique of [facility] 2020-07-19 2020-07-19 Orders Doctor OLVIN 1.2.840.114 [id number] Univers 00:00:00 00:00:00 Only Unassigned, NIKOLAI 350.1.13.10 ity of [place] [facility] 4.2.7.2.686 [place] [phone] [address] 2020-05-16 2020-05-16 Refill [facility] 1.2.840.114 [id number] Univers 00:00:00 00:00:00 Elise Torres 350.1.13.10 i ty of [place].2.[place] [phone] [address] 2020-05-16 2020-05-16 [facility] 1.2.840.114 [id number] Univers 00:00:00 00:00:00 Mary Torres 350.1.13.10 ity of [place] 4.2.7.2.[place] [phone] [address] 2020-04-19 2020-04-19 Office [facility] 1.2.840.114 [id number] [facility] [place] 10:32:04 11:34:09 Visit Elise Torres 350.1.13.10 i ty of [place] 4.2.7.2.[place] [phone] [address] 2020-04-19 2020-04-19 Outpatient R [facility]YFIRELANDS [facility] [id number] Univers 10:20:00 10:20:00 ELISE quispe of [facility] 2020-01-20 2020-01-20 Telemedici [facility] 1.2.840.114 [id number] Univers 12:54:06 15:11:12 ne Visit Mary Torres 350.1.13.10 ity of [place] 4[place]2.[place].2.[place] [phone] [address] 2020-01-20 2020-01-20 Outpatient R BETRIN [facility] 1026 [id number] [facility] [place] 14:35:00 14:35:00 MARY quispe [facility] 2019-07-12 2019-07-12 Office Seven Mcnally [facility] 1.2.840.114 [id number] [facility] [place] 08:38:01 09:36:47 Visit C [place] 350.1.13.10 i ty of [place] 4[place]2.[place].2.[place] [phone] [address] 2019-07-07 2019-07-07 Office Seven Mcnally [facility] 1.2.840.114 [id number] Univers 13:40:02 14:13:39 Visit C [place] 350.1.13.10 i ty of [place] 4[place]2.[place].2.[place] [phone] [address] 2019-07-07 2019-07-07 Letter Seven Mcnally [facility] 1.2.840.114 [id number] Univers 00:00:00 00:00:00 (Out) Health 350.1.13.10 it y of [place] 4.2.7.2.686 [place] Professio [phone] [address] One 2019-05-27 2019-05-27 Telephone [facility] 1.2.840.114 [id number] Univers 00:00:00 00:00:00 Chasity Torres 350.1.13.10 i ty [place] [phone] [address] Results Test Description Test Time Test Comments Results Result Comments Source SURGICAL 2022-12-08 13:33:00 Test Item Value Reference Range Interpretation Comme aguila SURGICAL RUN DATE: (test 12/08/22 NICOLE Farr d - LAB PAGE 1 RUN TIME: 1333 Specimen Inquiry RUN USER: INTERFACE code = PATIENT: SR) DONNIE YOUNG [id number] LOC: RUPESH #: [id number] AGE/SX: 62/F ROOM: AncaBANNER RE12/04/22REG DR: Sheree Medeiros MD, DO B: 60 BED: 1 DIS: 12/05/22 STATUS: DIS Gilbert TLOC: SPEC #: [id number]:PMC:[id number] RECD: 12/05/22-0 520 STATUS: AUDREY REQ #: [id number] KADE: 12/04/22- 5 [facility] DR: Sheree Medeiros MDE SP TYPE: SURGICAL OTHR DR: ORDERED: 79858, 61292, ANATOMIC SPEC, SPECIMEN TRACK PROCEDU RES: [id number] (12/05/22) 90752 (12/08/22) SPECIMEN TRACK (12/05/22) TISSUES: A. HERNIA SAC ANY LOCATION B. UTERUS - UTERUS, CERVIX, BILATERAL FALLOPIAN TUBES FINAL DIAGNOSIS A. ABD OMINAL WALL, HERNIORRHAPHY: - Benign fibroadipose tissue, consistent with hernia sac. B. 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 - Negative ectocervical margin. - Inactive endometrium. - No myometrial lesion. - Serosa without pathologic alteration. - Unremarkable bilateral ovaries and fallopian tubes. - Specimen 43.6 g. - See comment. Comment: Cervix is entirely submitted for microscopic evaluation. There is focalhi gh-grade squamous intraepithelial lesion (MARTINA 3), focally involving endocervical glands. No ecto cervical margin involvement is seen. Squamous epithelium has parakeratosis andfocal acute inflammation. No invasive carcinoma is seen. GROSS DESCRIPTION A. Hernia sac. Received are two segments adipose tis gabriela measuring 1.7 x 1.3 x 1.2 cm and3.3 x 2 x 0.6 cm. The smaller segment is inked blue, they are seriall y sectioned to revealgrossly fatty consistency. They are entirely submitted as A1-A3. B. Uterus with yovany ateral fallopian tubes and ovaries. Received is a uterus with attachedright and left ovaries and fallopi an tubes. The uterus weighs 43.6 g and measures cornu tocornu 4.2 cm, posterior to anterior 3 cm a nd fundus to cervix 7.5 cm. The cervix measures3.3 x 2.5 cm. The uterus is bivalved to reveal a pink sm ooth cervical canal of 1.8 cm inlength. The endometrial cavity measures 2.1 x 1.2 cm and covered by endo metrium of lessthan 0.2 cm in thickness. The uterine wall has a maximum thickness of 1.8 cm. Section ingthrough the uterine wall reveals no lesions. The serosal surface is smooth. The right CONTINUED ON NEXT PAGE RUN DATE: 12/08/22 [facility] Johnny Farr Holidog - CARLOS PAGE 2 RUN TIME: 1333 Specimen Inquiry RUN USER: INTERFACE SPEC #: [id number]:[facility]:[id number] PATIENT: DONNIE YOUNG #[id number] (Continued) GROSS DESCRIPTION (Continued ) ovary measures 2.8 x 2.2 x 1.2 cm. Cut sections reveal grossly unremarkable ovarianparenchy ma. The right fallopian tube without fimbriated end, possible ligament measures3.5 cm in length and has a diameter of 0.2 cm. The left ovary measures 2.3 x 1.8 x 1 cm.Cut sections reveal grossly unre markable ovarian parenchyma. The left fallopian tube is ashort segment with fimbriated end measuring 1.5 cm in length and a diameter of 0.5 cm. B1-B4 cervix 12-3 o'clockB5-B8 cervix 3-6 o'clock B9-B11 ce rvix 6-9 o'vdznfX17-M08 cervix 9-12 o'zikxxR50 posterior lower uterine wuxujkyO85 posterior endomyo divjckbO55 anterior lower uterine knlcclvE23 anterior ixxmypbqmfrkpnP86 posterior wuzlxjkaeiG34 righ t wxfgysiijeaO02 left zigfzgqzltxN11-O94 right ovary serially sectioned entirely ebmeukidoR83 right attached tubular structure possible plodhgglO50-H93 left ovary serially sectioned entirely submitted B28 left fallopian tube cut surface with entire bisected fimbriated end Technical tissue processing and slide preparation performed at [facility],[address], [place] [address] Immunohistochemistr y: This test was developed and its performance characteristicsdetermined by this laboratory. It has not been approved nor does it need approval by the USFDA. Appropriate positive and negative controls are re viewed and judged to be acceptable.This laboratory is certified under the Clinical Laboratory Improvem ent Amendments (CLIA-88)as qualified to perform high complexity clinical laboratory testing. [facility] DESCRIPTION A and B. Microscopic examination is performed and the findings are incorporated into thefinal diagnosis. Ple ase see diagnosis for findings. Signed SIGNATURE ON FILE Yajaira Perezmanuelito 12/08/22 1333 END OF REPORT GLUCOSE BEDSIDE [id number] 11:41:00 Test Item Value Reference Range Interpretation Comments GLUCOSE BEDSIDE TESTING (test code 111 mg/dL 70-110 H = GLUBED) GLUCOSE BEDSIDE [id number] 07:34:00 Test Item Value Reference Range Interpretation Comments GLUCOSE BEDSIDE TESTING (test code 103 mg/dL 70-110 N = GLUBED) [id number] 05:01:00 Test Item Value Reference Range Interpretation Comments CREATININE (test code = CREAT) 0.5 MG/DL 0.6-1.0 L Comment: Stat creatinine if not already performedGLUCOSE BEDSIDE TESTING 2022-12-04 16:22:00 Test Item Value Reference Range Interpretation Comments GLUCOSE BEDSIDE TESTING (test code 136 mg/dL 70-110 H = GLUBED) GLUCOSE BEDSIDE [id number] 14:37:00 Test Item Value Reference Range Interpretation Comments GLUCOSE BEDSIDE TESTING (test code 142 mg/dL 70-110 H = GLUBED) - XR CHEST 1 [id number] 08:01:00 [facility] 1960 Sex: F Name: DONNIE YOUNG [place] : 1960 Age/S: 62 / F [address] [place] Unit #: [id number] Loc: [place] [address] Phys: Michele Gerardo MD Acct: [id number] Dis Date: Status: REG [facility] PHONE #: [phone] Exam Date: 12/04/2022755 FAX #: Reason: PRE SURGERY HX LUNG CA EXAMS: CPT: [id number] XR CHEST 1 V 72530 Fluoro Time: DAP (Gy m2): Air Kerma (mGy): - XR CHEST 1 V INDICATION:Preop, history lung carcinoma LOCATION: T18 The lungs are clear. The cardiomediastinal silhouette is within normal limits. The bony thorax is unremarkable. IMPRESSION: No active disease. at 0801 Reported and signed by: Olvin Gilbert M.D. CC: Danii Medeiros MD; Michele Gerardo MD PAGE 1 Signed Report Name: DONNIE YOUNG [place] : 1960 Age/S: 62 / F [address] Unit #: [id number] Loc: [place] [address] Phys: Michele Gerardo MD Acct: [id number] Dis Date: Status: REG [facility] PHONE #: [phone] Exam Date: 12/04/20226 FAX #: Reason: PRE SURGERY HX LUNG CA EXAMS: CPT: [id number] XR CHEST 1 V 73066 Fluoro Time: DAP (Gy m2):Air Kerma (mGy): (Continued) Technologist: Rafal Bergeron, RT,(R),(CT) Trnscb Date/Time: 12/04/2022 (08) Jonathan Orig Print D/T: S: 12/04/2022 (0804) PAGE 2 Signed ReportBASIC METABOLIC [id number] 15:27:00 Test Item Value Reference Range Interpretation Comments SODIUM (test code 140 mmol/L 134-147 N = NA) POTASSIUM (test 3.9 mmol/L 3.4-5.0 N code = K) CHLORIDE (test 107 mmol/L 100-108 N code = CL) CARBON DIOXIDE 27 mmol/L 21-32 N (test code = CO2) ANION GAP (test 6.0 GAP calc 4.0-15.0 N code = GAP) GLUCOSE (test code 106 MG/DL 70-110 N = GLU) BLOOD UREA 11 MG/DL 7-18 N NITROGEN (test code = BUN) GLOMERULAR >=60 max >60 The Glomerular FILTRATION RATE estimate estGFR Filtratio n Rate is a (test code = GFR) calculated parameterbased on serum Creatinin e, patient age and sex. GFR valuesless than 60 mL/min/1.73 square meters are jordan cative ofChronic Kidne y Disease. Values less than 15 mL/min/1.73squa re meters indicate Kidney failure. The calculation for GFR is based on the CK D-EPI (2020) calculat ion. This formulais race indifferent and is the recommended formula for GFR by the [employer] for Adults.The GFR will not calculate i f the sex is unknown or if thepatient's ag e is <18 years. CREATININE (test 0.6 MG/DL 0.6-1.0 N code = CREAT) CALCIUM (test code 9.2 MG/DL 8.5-10.1 N = CA) COVID 19 INHOUSE [id number] 15:27:00 Test Item Value Reference Range Interpretation Comments COVID 19 INHOUSE AG NEGATIVE Negative Per manu facturer, (test code = negative result s should [id number]) be treated aspr esumptive and, if inconsi stent with clinical signs andsymptoms or necessary for patient man agement, should betested with an alternative mol ecular assay. Negative resultsdo not preclude SA RS-CoV-2 infection and s hould not be usedas the s ole basis for patient man agement decisions. Nega tive results should be considered in t he context of apatient's r ecent exposures, hist ory, presence of cli nicalsigns and symptoms co nsistent with COVID-19. THROMBOPLASTIN TIME [id number] 15:24:00 Test Item Value Reference Range Interpretation Comments THROMBOPLASTIN TIME PARTIAL 31.0 SECONDS 26-35 N (test code = PTT) PROTHROMBIN [id number] 15:24:00 Test Item Value Reference Range Interpretation Comments PT PATIENT (test 12.0 SECONDS 9.3-12.9 N code = PTP) INTERNATIONAL NORMAL 1.08 INR Unit 0.8-1.2 N TARGE T INR BY RATIO (test code = INDICATIO N Indication INR) INR1. Prophylax is of venous thrombos is 2.0 - 3.0 (orthoped ic surgery), Proph ylaxis of venous throm bosis (other than hig h-risk surgery), Treat ment of Deep Vein Thrombosis/Pulm onary Embolism, Preve ntion of systemic emb olism - Tissue heart va lves, Acute Myocardia l Infarction (to prevent systemic emboli sm), Valvular heart disease, Acute Myocardial Infa rction (to prevent sys temic embolism), Valv ular heart disease, Atrial Fibrillation, Bileaflet mecha nical valve in aortic position.2. Mec hanical prosthetic valv es (high risk), 2. 5 - 3.5 Presence of Lup us Anticoagulant o r Antiphospholipi d Antibodies, Pre vention of systemic emb olism - Acute Myocardia l Infarction (to prevent recurrent infar ct). CBC W/AUTO [id number] 15:17:00 Test Item Value Reference Range Interpretation Comments WHITE BLOOD CELL (test code = 4.7 K/mm3 3.5-11.0 N WBC) RED BLOOD CELL (test code = 4.67 M/mm3 4.70-6.10 L RBC) HEMOGLOBIN (test code = HGB) 14.1 G/DL 10.4-14.9 N HEMATOCRIT (test code = HCT) 42.0 % 31.5-44.1 N MEAN CELL VOLUME (test code = 89.9 Fl 84.5-98.6 N MCV) MEAN CELL HGB (test code = MCH) 30.2 pg 27.0-34.2 N MEAN CELL HGB CONCETRATION 33.6 G/DL 31.5-34.0 N (test code = MCHC) RED CELL DISTRIBUTION WIDTH 13.0 SD 11.5-14.5 N (test code = RDW) PLATELET COUNT (test code = 176 K/mm3 150-450 N PLT) MEAN PLATELET VOLUME (test code 10.60 fL 7.0-10.5 H = MPV) NEUTROPHIL % (test code = NT%) 58.1 % 40-76 N IMMATURE GRANULOCYTE % (test 0.2 % 0.0-5.0 N code = IG%) LYMPHOCYTE % (test code = LY%) 32.2 % 20.5-51.1 N MONOCYTE % (test code = MO%) 7.0 % 1.7-9.3 N EOSINOPHIL % (test code = EO%) 1.9 % 0.0-6.0 N BASOPHIL % (test code = BA%) 0.6 % 0.0-2.0 N NUCLEATED RBC % (test code = 0.0 /100WBC% 0.0-1.0 N NRBC%) NEUTROPHIL # (test code = NT#) 2.7 K/mm3 1.8-7.6 N IMMATURE GRANULOCYTE # (test 0.01 x10 3/uL 0.00-0.03 N code = IG#) LYMPHOCYTE # (test code = LY#) 1.5 K/mm3 0.6-3.2 N MONOCYTE # (test code = MO#) 0.3 K/mm3 0.3-1.1 N EOSINOPHIL # (test code = EO#) 0.1 K/mm3 0.0-0.4 N BASOPHIL # (test code = BA#) 0.0 K/mm3 0.0-0.1 N NUCLEATED RBC # (test code = 0.0 K/mm3 0.0-0.1 N NRBC#) MANUAL DIFF REQUIRED (test code NO DIFF/SCN CRITERIA = MDIFF) POCT URINALYSIS W/O SPECIFIC [id number] 20:16:00 Test Item Value Reference Range Interpretation Comments POCT PH U (test code = 3254) 6 mg/dl 5-8 POCT U LEUK EST (test code = Negative Negative - Negative 3263) POCT U NIT (test code = 3262) Negative Negative - Negative POCT U PROT (test code = 3259) Negative Negative - Negative POCT U GLU (test code = 3256) Normal Negative - Negative POCT U KETONE (test code = 3258) Negative Negative - Negative POCT U BLD (test code = 3257) Negative Negative - Negative [facility]
[2022-12-10] MEDS ORDERED: Ringers Lactate 1,000 ML IV ONE (16:22)
[2022-12-10 16:52] LABS: Absolute Lymphocytes (CBC) 0.8 K/uL (0.7-4.9); Hematocrit 39.1 % (36.0-45.0); Lymphocytes % 13.3 % (15.3-44.8); MCV 90.1 fL (80-100); MPV 8.2 fL (7.6-11.3); RBC Red Blood Cell Count 4.34 M/uL (3.86-4.86)
[2022-12-10] MEDS ORDERED: ONDANSETRON 4 MG/2 ML VIAL ONE (16:54)
[2022-12-10 17:13] LABS: Bilirubin Total 0.5 mg/dL (0.2-1.0); Potassium 3.5 mmol/L (3.5-5.1); Protein, Total 7.6 g/dL (6.4-8.2)
--- NOTE | 2022-12-10 18:15 | RAD REPORT ---
EXAM DESCRIPTION: CT - Chest For Pe Angio - 12/10/2022 5:54 pm CLINICAL HISTORY: Chest pain. sob, recent surgery COMPARISON: Chest Abdomen W Con dated 10/28/2022; Abdomen Pelvis W Contrast dated 12/10/2022 TECHNIQUE: CT angiogram of the pulmonary arteries was performed with MIP. All CT scans are performed using dose optimization technique as appropriate and may include automated exposure control or mA/KV adjustment according to patient size. FINDINGS: No evidence of pulmonary thromboembolism. No acute aortic finding demonstrated. The lungs are mildly emphysematous. Mild atelectasis is seen in the medial right lung base. No significant pericardial or pleural fluid. No concerning bony finding. IMPRESSION: No evidence of pulmonary thromboembolism. Mild COPD.
--- NOTE | 2022-12-10 18:17 | RAD REPORT ---
EXAM DESCRIPTION: CTAbdomen Pelvis W Contrast - 12/10/2022 5:54 pm CLINICAL HISTORY: Abdominal pain. vomiting, recent surgery COMPARISON: No comparisons TECHNIQUE: Biphasic CT imaging of the abdomen and pelvis was performed with 100 ml non-ionic IV cont rast. All CT scans are performed using dose optimization technique as appropriate and may include automated exposure control or mA/KV adjustment according to patient size. FINDINGS: Mild atelectasis is seen in the right lung base posteriorly. The liver, spleen, pancreas, adrenal glands are within normal limits. Benign bilateral renal cysts ar e present. Mild pneumoperitoneum, likely related to recent surgery. Mild free fluid is seen in the pelvis. Multi ple dilated small bowel loops are present filled with air and fluid. A loop of small bowel is seen ex tending into a right inguinal hernia. Most likely, this is incarcerated in resulting in the bowel obs truction. Air is present in the urinary bladder. No suspicious bony findings. IMPRESSION: Moderate mechanical small bowel obstruction is identified. This is favored to be result incarcerated right inguinal hernia containing a small section small intestine. Air in the urinary bladder presumably related to recent instrumentation or infection.
[2022-12-10 18:41] LABS: Urine Blood 2+ (Negative); Urine Glucose Negative (Negative); Urine Protein Negative (Negative); Urine pH 7.5 (5.0-7.0)
--- NOTE | 2022-12-10 19:06 | EDPHYS ---
Physician Documentation [facility] Name: Joy Phan Age: 62 yrs Sex: Female : 1960 Arrival Date: 12/10/2022 Time: 15:47 Bed 15 Private MD: Sheree Medeiros K; Pant Dhodapkar, Anupama ED Physician Gerardo Salgado HPI: 12/10 15:50 This 62 yrs old Female presents to ER via Ambulatory with complaints of Post Surgical jmm Pain, Urinary Retention. 15:50 The patient presents to the emergency department with nausea, vomiting. Onset: The jmm symptoms/episode began/occurred last night. Is a 62-year-old female with history of hypertension, lung cancer that presents emergency department with vomiting and abdominal pain. Symptoms began last night. Patient was seen by her product handler today and advised to go to the ED for further evaluation. Patient is status post hysterectomy 1 week ago. Historical: - Allergies: 15:49 Aleve; aa5 15:55 Tums; aa5 15:55 TETRACYCLINES; aa5 - PMHx: 15:49 Hypertension; neck pain; aa5 15:55 Lung Cancer; Uterovaginal prolapse; Stress Urinary Incontinence; aa5 - PSHx: 15:55 hysterectomy; aa5 - Immunization history:: Adult Immunizations unknown. - Social history:: Smoking status: Patient denies any tobacco usage or history of. ROS: 15:50 Constitutional: Negative for fever, chills, and weight loss, Cardiovascular: Negative jmm for chest pain, palpitations, and edema, Respiratory: Negative for shortness of breath, cough, wheezing, and pleuritic chest pain. 15:50 Abdomen/GI: Positive for abdominal pain, vomiting. 15:50 All other systems are negative. Exam: 15:50 Constitutional: This is a well developed, well nourished patient who is awake, alert, jmm and in no acute distress. Head/Face: atraumatic. Eyes: EOMI, no conjunctival erythema appreciated ENT: Moist Mucus Membranes Neck: Trachea midline, Supple Chest/axilla: Normal chest wall appearance and motion. Cardiovascular: Regular rate and rhythm. No edema appreciated Respiratory: Normal respirations, no respiratory distress appreciated 15:50 Skin: General appearance color normal MS/ Extremity: Moves all extremities, no obvious deformities appreciated, no edema noted to the lower extremities Neuro: Awake and alert Psych: Behavior is normal, Mood is normal, Patient is cooperative and pleasant 15:50 Abdomen/GI: Inspection: abdomen appears normal, Bowel sounds: normal, Palpation: soft, mild abdominal tenderness, in the suprapubic area, right upper quadrant, left upper quadrant, right lower quadrant and left lower quadrant. Vital Signs: 15:49 BP 165 / 101; Pulse 110; Resp 20 S; Temp 97.2(TE); Pulse Ox 95% on R/A; Weight 59.78 kg aa5 (R); Height 5 ft. 6 in. (167.64 cm) (R); 17:00 BP 145 / 78; Pulse 70; Resp 18; Pulse Ox 95% ; ko1 17:15 BP 152 / 103; Pulse 105; Pulse Ox 97% ; ko1 17:30 BP 144 / 98; Pulse 99; Pulse Ox 96% ; ko1 18:00 BP 154 / 81; Pulse 88; Pulse Ox 98% ; ko1 19:06 BP 148 / 86; Pulse 83; Pulse Ox 95% ; ko1 20:00 BP 147 / 95; Pulse 96; Resp 18; Pulse Ox 95% on R/A; jb4 21:00 BP 130 / 80; Pulse 76; Resp 18; Pulse Ox 94% on R/A; jb4 22:30 BP 127 / 75; Pulse 73; Resp 19; Pulse Ox 94% on R/A; jb4 23:15 BP 128 / 72; Pulse 70; Resp 18; Pulse Ox 92% on R/A; jb4 15:49 Body Mass Index 21.27 (59.78 kg, 167.64 cm) aa MDM: 15:50 Patient medically screened. [facility] 19:01 Data reviewed: vital signs, nurses notes. Consideration of Admission/Observation [facility] Patient was admitted/placed on observation. Management of patient was discussed with the following: Dr. Muñiz, Dr. Cartwright. I considered the following discharge prescriptions or medication management in the emergency department Medications were administered in the Emergency Department. See MAR. Counseling: I had a detailed discussion with the patient and/or guardian regarding: the historical points, exam findings, and any diagnostic results supporting the discharge/admit diagnosis, lab results, radiology results, the need for further work-up and treatment in the hospital. 12/10 15:50 Order name: CBC with Diff; Complete Time: 17:19 [facility] 12/10 15:50 Order name: CMP; Complete Time: 17:50 [facility] 12/10 15:50 Order name: Lipase; Complete Time: 17:50 [facility] 12/10 17:20 Order name: Chest For PE Angio CT; Complete Time: 18:18 [facility] 12/10 18:41 Order name: Urine Dipstick-Ancillary; Complete Time: 18:48 [facility] 12/10 19:30 Order name: SARS RAPID; Complete Time: 20:19 [facility] 12/10 15:50 Order name: IV Saline Lock; Complete Time: 16:34 [facility] 12/10 17:20 Order name: CT Abd/Pelvis - IV Contrast Only; Complete Time: 18:18 [facility] 12/10 20:07 Order name: Abdomen 1 View (KUB) XRAY [facility] 12/10 20:41 Order name: RAD [facility] 12/10 15:50 Order name: Labs collected and sent; Complete Time: 16:34 [facility] 12/10 15:50 Order name: Urine Dipstick-Ancillary (obtain specimen); Complete Time: 19:05 [facility] 12/10 18:28 Order name: NG Tube; Complete Time: 20:08 [facility] Administered Medications: 16:34 Drug: Lactated Ringers Solution 1000 ml Route: IV; Rate: 1000 ml/hr; Site: left ko1 antecubital; 17:29 Follow up: IV Status: Completed infusion; IV Intake: 1000ml ko 16:51 Drug: Zofran (Ondansetron) 4 mg Route: IVP; Site: left antecubital; ko1 17:29 Follow up: Response: No adverse reaction; Nausea is decreased ko1 19:47 Drug: Zosyn (piperacillin-tazobactam) 3.375 grams Route: IVPB; Infused Over: 60 mins; jb4 Site: left antecubital; 20:40 Drug: morphine 4 mg Route: IVP; Infused Over: 4 mins; Site: left antecubital; jb4 Disposition: 19:21 Co-signature as Attending Physician, Gerardo JIMENEZ was immediately available on-site ms3 in the Emergency Department for consultation in the care of the patient. Disposition Summary: 12/10/22 19:05 Hospitalization Ordered Hospitalization Status: Inpatient Admission jmm Location: Telemetry/MedSurg (Inpatient) jmm Condition: Stable jmm Problem: new jmm Symptoms: are unchanged jmm Bed/Room Type: Standard jmm Provider: Nicola Willett(12/10/22 19:51) sb4 Room Assignment: 203(12/10/22 21:36) cg Diagnosis - Small bowel obstruction jmm Forms: - Medication Reconciliation Form jmm - SBAR form jmm Signatures: Dispatcher [employer] EDSilviano Alvarez PA PA jmm Calderon, Audri, RN RN aa5 Ngozi Richter RN RN Seven Fuentes RN RN jb4 Gerardo Salgado DO DO ms3 Ly Perez RN RN ko1 Jadyn Valle PA-C PA-C sb4 Corrections: (The following items were deleted from the chart) 15:57 15:55 PSHx: Uterovaginal prolapse; aa5 aa5 19:51 19:05 Jadyn Valle sb4 21:36 19:05 jmm cg
--- NOTE | 2022-12-10 19:06 | ER ---
Nurse's Notes [facility] Name: Joy Phan Age: 62 yrs Sex: Female : 1960 Arrival Date: 12/10/2022 Time: 15:47 Bed 15 Private MD: Sheree Medeiros K; Pant Dhodapkar, Anupama Diagnosis: Small bowel obstruction Presentation: 12/10 15:49 Method Of Arrival: Ambulatory aa5 15:49 Chief complaint: Patient states: nausea that began last night. Reports recent aa5 hysterectomy by Dr. Newman. Coronavirus screen: nausea. Ebola Screen: Patient denies travel to an Ebola-affected area in the 21 days before illness onset. Initial Sepsis Screen: Does the patient meet any 2 criteria? HR > 90 bpm. Does the patient have a suspected source of infection? No. Patient's initial sepsis screen is negative. Risk Assessment: Do you want to hurt yourself or someone else? Patient reports no desire to harm self or others. Onset of symptoms was December 2022. 15:49 Acuity: LOVELY 3 aa5 Historical: - Allergies: 15:49 Aleve; aa5 15:55 Tums; aa5 15:55 TETRACYCLINES; aa5 - PMHx: 15:49 Hypertension; neck pain; aa5 15:55 Lung Cancer; Uterovaginal prolapse; Stress Urinary Incontinence; aa5 - PSHx: 15:55 hysterectomy; aa5 - Immunization history:: Adult Immunizations unknown. - Social history:: Smoking status: Patient denies any tobacco usage or history of. Screenin:00 [facility] ED Fall Risk Assessment (Adult) History of falling in the last 3 months, ko1 including since admission No falls in past 3 months (0 pts) Confusion or Disorientation No (0 pts) Intoxicated or Sedated No (0 pts) Impaired Gait No (0 pts) Mobility Assist Device Used No (0 pt) Altered Elimination No (0 pt) Score/Fall Risk Level 0 - 2 = Low Risk Oriented to surroundings, Maintained a safe environment, Educated pt \T\ family on fall prevention, incl call for assistance when getting out of bed, Assessed \T\ reinforced patient's understanding of fall precautions, Provided non-skid footwear, Hourly rounding (assess needs \T\ fall precautionary measures) done, Used ambulatory aids as needed (educated on \T\ assisted with), Used gait belt as appropriate. Abuse screen: Denies threats or abuse. Denies injuries from another. Nutritional screening: No deficits noted. Tuberculosis screening: No symptoms or risk factors identified. Assessment: 16:00 General: Appears distressed, uncomfortable, ill, Behavior is cooperative, appropriate ko1 for age. Pain: Complains of pain in abdomen. Neuro: No deficits noted. Cardiovascular: No deficits noted. Respiratory: No deficits noted. GI: Pt is actively vomiting Reports lower abdominal pain, upper abdominal pain, nausea, vomiting. : No deficits noted. EENT: No deficits noted. Derm: No deficits noted. Musculoskeletal: No deficits noted. 19:06 Reassessment: Attempted 16 fr NGT without success to both nares, then attempted 14fr ko1 NGT without success both nares. Hit obstruction at the back of the nares. Notified Silviano Munroe . 20:00 Reassessment: Patient appears in no apparent distress at this time. Patient and/or jb4 family updated on plan of care and expected duration. Pain level reassessed. Patient is alert, oriented x 3, equal unlabored respirations, skin warm/dry/pink. 21:00 Reassessment: Patient appears in no apparent distress at this time. Patient and/or jb4 family updated on plan of care and expected duration. Pain level reassessed. Patient is alert, oriented x 3, equal unlabored respirations, skin warm/dry/pink. 22:00 Reassessment: Patient appears in no apparent distress at this time. Patient and/or jb4 family updated on plan of care and expected duration. Pain level reassessed. Patient is alert, oriented x 3, equal unlabored respirations, skin warm/dry/pink. 23:00 Reassessment: Patient appears in no apparent distress at this time. Patient and/or jb4 family updated on plan of care and expected duration. Pain level reassessed. Patient is alert, oriented x 3, equal unlabored respirations, skin warm/dry/pink. 23:48 Reassessment: Patient appears in no apparent distress at this time. Patient and/or jb4 family updated on plan of care and expected duration. Pain level reassessed. Patient is alert, oriented x 3, equal unlabored respirations, skin warm/dry/pink. Vital Signs: 15:49 BP 165 / 101; Pulse 110; Resp 20 S; Temp 97.2(TE); Pulse Ox 95% on R/A; Weight 59.78 kg aa5 (R); Height 5 ft. 6 in. (167.64 cm) (R); 17:00 BP 145 / 78; Pulse 70; Resp 18; Pulse Ox 95% ; ko1 17:15 BP 152 / 103; Pulse 105; Pulse Ox 97% ; ko1 17:30 BP 144 / 98; Pulse 99; Pulse Ox 96% ; ko1 18:00 BP 154 / 81; Pulse 88; Pulse Ox 98% ; ko1 19:06 BP 148 / 86; Pulse 83; Pulse Ox 95% ; ko1 20:00 BP 147 / 95; Pulse 96; Resp 18; Pulse Ox 95% on R/A; jb4 21:00 BP 130 / 80; Pulse 76; Resp 18; Pulse Ox 94% on R/A; jb4 22:30 BP 127 / 75; Pulse 73; Resp 19; Pulse Ox 94% on R/A; jb4 23:15 BP 128 / 72; Pulse 70; Resp 18; Pulse Ox 92% on R/A; jb4 15:49 Body Mass Index 21.27 (59.78 kg, 167.64 cm) aa5 ED Course: 15:47 Patient arrived in ED. as 15:47 Sheree Medeiros MD is Private Physician. as 15:47 Bonnie Walter MD is Private Physician. as 15:49 Arm band placed on. aa5 15:50 Silviano Munroe PA is PHCP. [facility] 15:50 Gerardo Salgado DO is Attending Physician. [facility] 15:54 Triage completed. aa5 16:03 Ly Perez, RN is Primary Nurse. ko1 16:34 CBC with Diff Sent. ko1 16:34 CMP Sent. ko1 16:34 Lipase Sent. ko1 16:34 Inserted saline lock: 20 gauge in left antecubital area, using aseptic technique. Blood ko1 collected. 17:55 Chest For PE Angio CT In Process Unspecified. EDMS 17:55 CT Abd/Pelvis - IV Contrast Only In Process Unspecified. EDMS 18:00 Patient has correct armband on for positive identification. Placed in gown. Bed in low ko1 position. Call light in reach. Side rails up X 1. Pulse ox on. NIBP on. Door closed. Lights dimmed. Warm blanket given. Pillow given. 19:04 Jadyn Valle PA-C is Hospitalizing Provider. [facility] 19:51 Nicola Willett MD is Hospitalizing Provider. sb4 23:48 No provider procedures requiring assistance completed. Patient admitted, IV remains in jb4 place. Administered Medications: 16:34 Drug: Lactated Ringers Solution 1000 ml Route: IV; Rate: 1000 ml/hr; Site: left ko1 antecubital; 17:29 Follow up: IV Status: Completed infusion; IV Intake: 1000ml ko1 16:51 Drug: Zofran (Ondansetron) 4 mg Route: IVP; Site: left antecubital; ko1 17:29 Follow up: Response: No adverse reaction; Nausea is decreased ko1 19:47 Drug: Zosyn (piperacillin-tazobactam) 3.375 grams Route: IVPB; Infused Over: 60 mins; jb4 Site: left antecubital; 20:40 Drug: morphine 4 mg Route: IVP; Infused Over: 4 mins; Site: left antecubital; jb4 Intake: 17:29 IV: 1000ml; Total: 1000ml. ko1 Outcome: 19:05 Decision to Hospitalize by Provider. [facility] 23:48 Admitted to Med/surg accompanied by tech, via stretcher, with chart. jb4 23:48 Condition: stable 23:48 Discharge instructions given to patient, Instructed on the need for admit, Demonstrated understanding of instructions. 23:53 Patient left the ED. jb4 Signatures: Dispatcher [employer] EDMS Silviano Munroe PA PA jmm Martinez, Amelia as Calderon, Audri RN RN aa5 Seven Giraldo RN RN jb4 Ly Perez RN RN ko1 Jadyn Valle PA-C PA-C sb4 Corrections: (The following items were deleted from the chart) 15:57 15:55 PSHx: Uterovaginal prolapse; aa5 aa5
[2022-12-10] MEDS ORDERED: PIPERACIL/TAZO 3.375 GM VIAL IV ONE (19:18)
[2022-12-10] MEDS ORDERED: NA CHLORIDE 0.9% 100 ML ONE (19:18)
[2022-12-10] MEDS ORDERED: LIDOCAINE VISCOUS 2% SOLN 15 ML UDC ONE (20:00)
[2022-12-10 20:11] LABS: SARS-CoV-2 Antigen Rapid Res Negative (Negative)
[2022-12-10] MEDS ORDERED: MORPHINE 4 MG/ML SYR ONE (20:27)
--- NOTE | 2022-12-10 20:40 | RAD REPORT ---
EXAM DESCRIPTION: RAD - Abdomen 1 View (KUB) - 12/10/2022 8:32 pm CLINICAL HISTORY: POST NG PLACEMENT Pain COMPARISON: No comparisons FINDINGS: The enteric tube is within the stomach. The tip of the tube is directed cephalad in the fu ndus region. Moderate small bowel obstruction is noted.
--- NOTE | 2022-12-10 20:41 | CON ---
Date of Consultation: 12/10/2022 Diagnosis: Small bowel obstruction. History Of Present Illness: This is a case of a 62-year-old patient who comes to the hospital sent b y stock control clerk after a complaint of postsurgical pain and urinary retention. When the workup was don e, the patient was found to have small bowel obstruction and also a right inguinal hernia. The pain was associated with nausea. She feels better right now because her hernia is reduced, but it is stil l unknown the cause of a bowel obstruction if this is an ileus or just the hernia itself. So a surgi orin consult was obtained. Apparently, she has a hysterectomy for uterovaginal prolapse last in another institution. The patient has been followed by the stock control clerk who I just discussed the case with. For the last 2 days, she has then very acute episode of constipation and lower abdominal pain. Patient was followed by the stock control clerk's office and sent to the ER. She denies any trauma, denies any shortness of breath, denies any chest pain. Denies any melena, any hematochezia or any li fting. Apparently when the case was done yesterday, there were some issues about a lot of adhesions inside from previous abdominal surgeries and also a reduction of the right inguinal hernia intraopera tively. Allergies: ALEVE, TUMS, TETRACYCLINE. Past Medical Problems: Include hypertension, neck pain. She has history of lung cancer, urinary inc ontinence. Past Surgical History: Include a hysterectomy last week. Review of Systems: See history of present illness. Physical Examination: General: Patient is awake and alert. HEENT: Pupils are equal and reactive. Anicteric. Neck: Supple. Chest: Clear. Heart: S1, S2. Abdomen: Soft and depressible. By the time, I just get right now, the right inguinal hernia is very reduced, but still patient has abdominal pain. No peritonitis at this moment. Nausea present. Rectal: Deferred. Pelvic: Deferred. Extremity: Good capillary refill. Laboratory Data: Blood work shows a WBC count of 6 with hemoglobin of 13, platelets of 191, potassiu m 3.5, creatinine is 0.6, total bilirubin of 0.5, lipase 49. CAT scan of the abdomen and pelvis was done at 1700, 5:00 o'clock, this afternoon, was read by Dr. Fausto as mild pneumoperitoneum may be rela sara to recent surgery, free fluid in the pelvis. Multiple dilated small bowel loops present with air and fluid levels. A loop of small bowel extending into the right inguinal hernia. Air is present i n the urinary bladder. Assessment: A 62-year-old patient comes with abdominal pain, comes with bowel obstruction. Patient also has history of right inguinal hernia. During the case, apparently, the omentum was removed out of there and apparently some loop substituted that omentum. It is hard to say at this moment, even i leus etiology, is there hernia or it is just part of the process of bowel obstruction and intestines trying to find a way to go. Right now, the hernia is reduced. Still it will happen again, most like ly. We are doing bowel rest at this moment. We are going to put an NG tube on her. I discussed wit h her surgical options that include diagnostic laparoscopy, possible laparotomy, possible resection, possible repair of the hernia. She understands that even though the hernia is there, might not be th e only etiology of her ileus and by us doing diagnostic lap, we have to make sure that the bowel ____ involved previously in the hernia that is viable. Obviously, the patient had surgery recently , so she is hesitant about doing more surgical intervention. We are going to see in the next few eduardo rs how she responds to bowel rest and NG tube placement and then we still might have to go there, janelle n though she feels better to fix the hernia because obviously the intestines will go through it again . The benefits, alternatives, and risks of that fully explained which include, but not limited to, i nfection, bleeding, damage to adjacent structures, anesthesia complication, recurrence, KS, and even . HM/MODL Voice ID: [id number] Report ID: [id number]
--- NOTE | 2022-12-10 21:20 | P.HP ---
Certification for Inpatient Patient admitted to: Inpatient With expected LOS: >2 Midnights Patient will require the following post-hospital care: None Practitioner: I am a practitioner with admitting privileges, knowledge of patient current condition, hospital course, and medical plan of care. 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 Patient underwent laproscopic assisted vaginal hysterectomy [address] abdomen pelvis showed "Moderate mechanical small bowel obstruction is identified. This is favored to be result incarcerated right inguinal hernia containing a small section small intestine.Air in the urinary bladder presumably related to recent instrumentation or infection." Labs are unremarkable. NG tube was placed in ED and she was started on zosyn. Dr. Muñiz has seen patient and will consult. Patient is admitted for further management. Allergies calcium carbonate [From Tums] Allergy (Verified 12/11/22 00:01) Rash naproxen [From Aleve] Adverse Reaction (Verified 12/11/22 00:01) Hives/Rash tetracycline Adverse Reaction (Verified 12/11/22 00:01) Itching/Hives/Rash Home medications list reviewed: Yes Home Medications: Atorvastatin Calcium 1 tab PO BEDTIME 12/11/22 Hydrocodone 10/APAP 325 [[place] 10/325*] 1 tab PO QID PRN 12/11/22 Ibuprofen 1 tab PO BID 12/11/22 - Past Medical/Surgical History Diabetic: No -: Hypertension -: Non-Small Cell Carcinoma Lung -: Uterovaginal Prolapse -: Stress Urinary Incontinence -: COPD -: Hysterectomy Psychosocial/ Personal History: Patient is . - Family History Family History: Reviewed- Non-Contributory - Social History Smoking Status: Former smoker Alcohol use: No CD- Drugs: No Caffeine use: Yes Place of Residence: Home Review of Systems Gastrointestinal: Nausea, Vomiting, Abdominal Pain Physical Examination - Vital Signs Temperature: 98.4 F Blood Pressure: 136/77 Pulse: 76 Respirations: 23 Pulse Ox (%): 93 - Physical Exam General: Alert, In no apparent distress HEENT: Atraumatic, EOMI, Sclerae nonicteric Neck: Supple, 2+ carotid pulse no bruit Respiratory: Clear to auscultation bilaterally, Normal air movement Cardiovascular: Regular rate/rhythm, Normal S1 S2 Gastrointestinal: Hypoactive, Other (Moderately Distended), Tenderness Musculoskeletal: No tenderness Integumentary: No rashes Neurological: Normal speech, Normal affect - Studies Laboratory Data (last 24 hrs) 12/10/22 16:30: Sodium 138, Potassium 3.5, BUN 8, Creatinine 0.64, Glucose 141 H, Total Bilirubin 0.5, AST 17, ALT 24, Alkaline Phosphatase 66, Lipase 49 L 12/10/22 16:30: WBC 6.40, Hgb 13.2, Hct 39.1, Plt Count 191 Assessment and Plan - Problems (Diagnosis) (1) SBO (small bowel obstruction) Current Visit: Yes Status: Acute (2) Hypertension Current Visit: Yes Status: Chronic Qualifiers: Hypertension type: primary hypertension Qualified Code(s): I10 - Essential (primary) hypertension (3) COPD (chronic obstructive pulmonary disease) Current Visit: Yes Status: Chronic Qualifiers: COPD type: unspecified COPD Qualified Code(s): J44.9 - Chronic obstructive pulmonary disease, unspecified - Plan Patient is admitted for further management of SBO. NPO. Continue IV fluids and zosyn. Dr. Muñiz consulting, potentially taking patient to OR. Pain medications and antiemetics as needed. Patient has had relief with NGT. Placed on thr-ss-hjvgrdzatenu-suction. Monitor and replete electrolytes per protocol. Reconcile and continue home medications. Lovenox for VTE prophylaxis. Full code. Discharge Plan: Home Plan to discharge in: Greater than 2 days - Advance Directives Does patient have a Living Will: No Does patient have a Durable POA for Healthcare: No - Code Status/Comfort Care Code Status Assessed: Yes Code Status: Full Code Physician Review: Patient Assessed, Agree with Above Assessment and Plan Critical Care: No Time Spent Managing Pts Care (In Minutes): 50
[2022-12-11] MEDS ORDERED: ONDANSETRON 4 MG/2 ML VIAL IV PRN (00:02)
[2022-12-11 00:39] VITALS: BMI 21.3
[2022-12-11] MEDS: MORPHINE 4 MG/ML SYR IV PRN ×5 (00:39→22:16)
[2022-12-11] MEDS: PIPER TAZO 3.375 GM in NA CHLORIDE 0.9% 100 ML IV SCH ×3 (00:50→17:13)
[2022-12-11 04:35] LABS: Absolute Lymphocytes (CBC) 0.7 K/uL (0.7-4.9); Hematocrit 35.5 % (36.0-45.0); Lymphocytes % 15.3 % (15.3-44.8); MCV 89.7 fL (80-100); MPV 8.5 fL (7.6-11.3); RBC Red Blood Cell Count 3.96 M/uL (3.86-4.86)
[2022-12-11 04:50] LABS: Magnesium 2.1 mg/dL (1.6-2.4); Phosphorus 4.7 mg/dL (2.5-4.9); Potassium 3.8 mmol/L (3.5-5.1)
[2022-12-11] MEDS: Ringers Lactate 1,000 ML IV SCH ×2 (05:12→17:32)
[2022-12-11] MEDS ORDERED: METOCLOPRAMIDE 10 MG/2mL INJ IV SCH (08:30)
[2022-12-11] MEDS ORDERED: BUPIVACAINE 0.5% Inj,MDV 50 mL VIAL ONE (08:33)
[2022-12-11] MEDS: Ringers Lactate 1,000 ML IV ONE ×2 (08:55→09:15)
[2022-12-11] MEDS ORDERED: ENOXAPARIN 40 MG/0.4 ML SQ SCH (09:00)
[2022-12-11] MEDS ORDERED: KCL 20 MEQ/100 mL IVPB 20 MEQ/100 ML BAG IV SCH (09:00)
[2022-12-11] MEDS ORDERED: Ringers Lactate 1,000 ML IV ONE (10:04)
--- NOTE | 2022-12-11 11:00 | P.BOP ---
Preoperative diagnosis: small bowel obsttruction, incarcerated inguinal hernia Postoperative diagnosis: strangulated femoral hernia Primary procedure: Diagnostic laparoscopy, exploratory laparotomy, small bowel resection Secondary procedure: with anastomosis, open repair of strangulated femoral hernia Specimen: sac, small bowel Findings: small bowel on femoral hernia Anesthesia: General Complications: None Implants: mesh plug femoral Transferred to: Recovery Room Condition: Good
[2022-12-11] MEDS: HYDROMORPHONE HCL 1 MG/ML INJ ONE ×2 (11:15→11:22)
[2022-12-11] MEDS ORDERED: HYDROMORPHONE HCL 1 MG/ML INJ ONE (11:38)
[2022-12-12] MEDS: MORPHINE 4 MG/ML SYR IV PRN ×8 (00:47→19:24)
[2022-12-12] MEDS: PIPER TAZO 3.375 GM in NA CHLORIDE 0.9% 100 ML IV SCH ×3 (00:54→16:51)
[2022-12-12] MEDS: Ringers Lactate 1,000 ML IV SCH ×4 (01:00→21:00)
--- NOTE | 2022-12-12 05:58 | P.PN ---
Subjective Date of Service: 12/11/22 Subjective: No new changes, No C/O voiced Patient is doing well postoperatively. Continue to monitor. NG tube to suction. Gentle hydration. Continue with antibiotic therapy. Review of Systems 10-point ROS is otherwise unremarkable Physical Examination - Vital Signs Temperature: 97 F Blood Pressure: 120/64 Pulse: 66 Respirations: 18 Pulse Ox (%): 95 - Physical Exam General: Alert, In no apparent distress HEENT: Atraumatic, PERRLA, EOMI Neck: Supple, JVD not distended Respiratory: Clear to auscultation bilaterally, Normal air movement Cardiovascular: Regular rate/rhythm, Normal S1 S2 Gastrointestinal: Absent bowel sounds, Tenderness Musculoskeletal: No tenderness Integumentary: No rashes Neurological: Other ( No focal deficits) - Studies Medications List Reviewed: Yes Assessment & Plan - Problems (Diagnosis) (1) SBO (small bowel obstruction) Current Visit: Yes Status: Acute (2) COPD (chronic obstructive pulmonary disease) Current Visit: Yes Status: Chronic Qualifiers: COPD type: unspecified COPD Qualified Code(s): J44.9 - Chronic obstructive pulmonary disease, unspecified (3) Hypertension Current Visit: Yes Status: Chronic Qualifiers: Hypertension type: primary hypertension Qualified Code(s): I10 - Essential (primary) hypertension - Plan -management per surgery -PT evaluation -DVT prophylaxis -IV hydration and IV antibiotics -advanced diet as tolerated -strict blood pressure and blood sugar control -monitor electrolytes and blood count closely -Dc Oneal catheter in 24 hr -pain control Discharge Plan: Home Plan to discharge in: Greater than 2 days - Advance Directives Does patient have a Living Will: No Does patient have a Durable POA for Healthcare: No - Code Status/Comfort Care Code Status: Full Code Physician Review: Patient Assessed, Agree with Above Assessment and Plan Critical Care: No Time Spent Managing PTS Care (In Minutes): 35
--- NOTE | 2022-12-12 05:59 | P.PN ---
Date of Service: 12/12/22 Subjective Patient is continuing to improve. NG tube to suction. Will try to clamp it over the next 48 hours per General surgery if patient starts having flatus. Continue with bowel rest at this time. Otherwise, no new complaints. She is clinically fairly stable. Review of Systems 10-point ROS is otherwise unremarkable Physical Examination - Vital Signs reviewed - Physical Exam General: Alert, In no apparent distress; NG tube to suction Respiratory: Clear to auscultation bilaterally, Normal air movement Cardiovascular: Regular rate/rhythm, Normal S1 S2 Gastrointestinal: Decreased bowel sounds; minimally distended and appropriately tender Musculoskeletal: No tenderness Neurological: No focal deficits Assessment & Plan - Problems (Diagnosis) (1) SBO (small bowel obstruction) Current Visit: Yes Status: Acute (2) COPD (chronic obstructive pulmonary disease) Current Visit: Yes Status: Chronic Qualifiers: COPD type: unspecified COPD Qualified Code(s): J44.9 - Chronic obstructive pulmonary disease, unspecified (3) Hypertension Current Visit: Yes Status: Chronic Qualifiers: Hypertension type: primary hypertension Qualified Code(s): I10 - Essential (primary) hypertension - Plan Continue plan of care as mentioned below: -management per surgery -PT evaluation -DVT prophylaxis -IV hydration and IV antibiotics -NPO at this time but anticipate diet over the next 48 hours as patient starts having flatus. -strict blood pressure and blood sugar control -monitor electrolytes and blood count closely -Dc Oneal catheter in 24 hr -pain control
[2022-12-12 06:17] LABS: Absolute Lymphocytes (CBC) 0.9 K/uL (0.7-4.9); Hematocrit 30.6 % (36.0-45.0); Lymphocytes % 19.6 % (15.3-44.8); MCV 90.9 fL (80-100); MPV 8.4 fL (7.6-11.3); RBC Red Blood Cell Count 3.37 M/uL (3.86-4.86)
[2022-12-12 06:22] LABS: Potassium 3.6 mmol/L (3.5-5.1)
[2022-12-12] MEDS ORDERED: KCL 20 MEQ/100 mL IVPB 20 MEQ/100 ML BAG IV SCH ×2 (07:00)
--- NOTE | 2022-12-12 15:20 | PN ---
Date of Progress Note: 12/12/2022 Diagnoses: Strangulated small bowel, right inguinal hernia, laparotomy. Subjective: Doing well, not passing the gas yet. NG tube is gastric juice. No blood. Objective: Chest: Clear. Abdomen: Intact surgical site. Bowel sounds negative. Extremities: Good capillary refill. Laboratory Data: Blood work reviewed. Plan: Incentive spirometry. Ambulate. We might clamp the NG tube. If no vomiting by tomorrow or n o big residuals, then we are going to remove the NG tube and then depends how she looked clinically, then we might start to get some diet. HM/MODL Voice ID: [id number] Report ID: [id number]
[2022-12-13] MEDS: PIPER TAZO 3.375 GM in NA CHLORIDE 0.9% 100 ML IV SCH ×4 (00:52→23:56)
[2022-12-13] MEDS: MORPHINE 4 MG/ML SYR IV PRN ×6 (00:52→23:56)
[2022-12-13] MEDS: Ringers Lactate 1,000 ML IV SCH ×2 (05:08→18:14)
[2022-12-13 06:14] LABS: Absolute Lymphocytes (CBC) 0.8 K/uL (0.7-4.9); Hematocrit 29.8 % (36.0-45.0); Lymphocytes % 20.6 % (15.3-44.8); MCV 91.1 fL (80-100); MPV 7.7 fL (7.6-11.3); RBC Red Blood Cell Count 3.27 M/uL (3.86-4.86)
[2022-12-13 06:22] LABS: Potassium 3.6 mmol/L (3.5-5.1)
[2022-12-13] MEDS ORDERED: KCL 20 MEQ/100 mL IVPB 20 MEQ/100 ML BAG IV SCH (08:00)
--- NOTE | 2022-12-14 00:26 | P.PN ---
Date of Service: 12/13/22 Subjective Patient continues to improve. Clinical symptoms are much better. Patient is ambulating with physical therapy. discuss with surgery regarding advancing diet. Possibly in the morning if patient is doing well. Review of Systems 10-point ROS is otherwise unremarkable Physical Examination - Vital Signs reviewed - Physical Exam General: Alert, In no apparent distress; NG tube to suction Respiratory: Clear to auscultation bilaterally, Normal air movement Cardiovascular: Regular rate/rhythm, Normal S1 S2 Gastrointestinal: Decreased bowel sounds; minimally distended and appropriately tender Musculoskeletal: No tenderness Neurological: No focal deficits Assessment & Plan - Problems (Diagnosis) (1) SBO (small bowel obstruction) Current Visit: Yes Status: Acute (2) COPD (chronic obstructive pulmonary disease) Current Visit: Yes Status: Chronic Qualifiers: COPD type: unspecified COPD Qualified Code(s): J44.9 - Chronic obstructive pulmonary disease, unspecified (3) Hypertension Current Visit: Yes Status: Chronic Qualifiers: Hypertension type: primary hypertension Qualified Code(s): I10 - Essential (primary) hypertension - Plan Continue plan of care as mentioned below: -management per surgery -PT evaluation appreciated; patient ambulating with therapy -DVT prophylaxis -IV hydration and IV antibiotics -NPO at this time but anticipate diet over the next 24 hours as patient starts having flatus. -strict blood pressure and blood sugar control -monitor electrolytes and blood count closely
[2022-12-14] MEDS: MORPHINE 4 MG/ML SYR IV PRN ×4 (04:10→22:35)
[2022-12-14] MEDS: Ringers Lactate 1,000 ML IV SCH (04:10)
[2022-12-14 06:55] LABS: Absolute Lymphocytes (CBC) 0.9 K/uL (0.7-4.9); Hematocrit 27.8 % (36.0-45.0); Lymphocytes % 22.3 % (15.3-44.8); MCV 90.1 fL (80-100); RBC Red Blood Cell Count 3.08 M/uL (3.86-4.86)
[2022-12-14 07:11] LABS: Magnesium 1.8 mg/dL (1.6-2.4); Potassium 3.7 mmol/L (3.5-5.1)
[2022-12-14] MEDS: D5W 1,000 ML IV SCH ×2 (08:22→21:02)
[2022-12-14] MEDS: PIPER TAZO 3.375 GM in NA CHLORIDE 0.9% 100 ML IV SCH ×2 (08:23→16:43)
--- NOTE | 2022-12-14 11:54 | PN ---
Date of Progress Note: 12/14/2022 Diagnosis: Small bowel obstruction, strangulated in the intestines. Subjective: The patient is doing better, status post resection and anastomosis, today started passin g gas. No shortness of breath. No chest pain. No fever. Review of Systems: Ten points otherwise unremarkable. Physical Examination: Chest: Clear. Abdomen: Soft and depressible. Bowel sounds positive. Extremities: Good capillary refill. No calf tenderness. Laboratory Data: Blood work reviewed. Plan: Full liquid diet, ambulation. Advance diet in the morning if she tolerates and possible disch arge. HM/MODL Voice ID: [id number] Report ID: [id number]
[2022-12-14 23:36] VITALS: O2SAT 96
[2022-12-15] MEDS ORDERED: HYDROCODONE/APAP 10/325 TAB PO PRN (00:09)
[2022-12-15] MEDS: PIPER TAZO 3.375 GM in NA CHLORIDE 0.9% 100 ML IV SCH ×2 (01:01→08:52)
[2022-12-15 06:38] LABS: Absolute Lymphocytes (CBC) 0.8 K/uL (0.7-4.9); Lymphocytes % 21.4 % (15.3-44.8); MCV 89.8 fL (80-100); MPV 8.2 fL (7.6-11.3); RBC Red Blood Cell Count 3.45 M/uL (3.86-4.86)
[2022-12-15 06:47] LABS: Potassium 3.3 mmol/L (3.5-5.1)
[2022-12-15 08:29] VITALS: BP 136/66; TEMP 97.9
--- NOTE | 2022-12-15 08:33 | P.DS ---
Admission Date: 12/10/22 Discharge Date: 12/15/22 Disposition: ROUTINE DISCHARGE Discharge Condition: GOOD Reason for Admission: SBO Consultations: 1. General Surgery Procedures: - 12/11/2022 - Diagnostic Laparoscopy, Exploratory Laparotomy, Small Bowel Resection Hospital Course: DIAGNOSES: # Moderate Mechanical Small Bowel Obstruction secondary to Incarcerated Right Inguinal Hernia s/p Diagnostic Laparoscopy, Exploratory Laparotomy, Small Bowel Resection # History of Non-Small Cell Lung Carcinoma # Chronic Obstructive Pulmonary Disease # Hypertension # Bilateral Renal Cysts # Microscopic Hematuria HOSPITAL COURSE: Ms. Joy Phan is a 62 year old female with a past medical history significant for non-small cell lung carcinoma, chronic obstructive pulmonary disease, and hypertension who was admitted to the [facility] on 12/10/2022 for abdominal pain. She was admitted to the Medicine service. Upon further evaluation, her CT abdomen/pelvis revealed, "moderate mechanical small bowel obstruction is identified. This is favored to be result incarcerated right inguinal hernia containing a small section small intestine." General Surgery was consulted and she was evaluated by Dr. Muñiz. On 12/11/2022, she underwent a diagnostic laparoscopy, exploratory laparotomy, and small bowel resection. She tolerated the procedure well and a diet was started. Her diet was gradually advanced and, over the course of her hospitalization, she continued to improve. This morning, she reported passing flatus and was able to tolerate a GI soft diet. Dr. Muñiz has cleared her for discharge home with outpatient follow-up. On 12/15/2022, she was seen on morning rounds and deemed medically stable for discharge. She was discharged with instructions to schedule follow-up appointments with her PCP (Dr. Medeiros), with General Surgery (Dr. Muñiz), and with Pain Medicine (Dr. Baez). She was given the opportunity to ask questions and reported no further questions. Furthermore, all questions were answered to the best of my ability. A copy of this discharge summary will be sent to the above providers to facilitate continuity of care. Today, I personally spent 20 minutes on her case, of which greater than 50% of the time was spent in patient education, counseling, and coordination of care as described above. Vital Signs/Physical Exam: Temp Pulse Resp BP Pulse Ox 97.9 F 55 14 136/66 94 12/15/22 08:00 12/15/22 08:00 12/15/22 08:00 12/15/22 08:00 12/15/22 08:00 General: Alert, In no apparent distress, Oriented x3 HEENT: Atraumatic, Mucous membr. moist/pink, EOMI, Sclerae nonicteric Neck: JVD not distended Respiratory: Clear to auscultation bilaterally, Normal air movement Cardiovascular: No edema, Regular rate/rhythm, Normal S1 S2, No gallops, No rubs, No murmurs Gastrointestinal: Normal bowel sounds, Soft and benign, Non-distended, No tenderness, No rebound, No guarding, Other (incision site is clean, dry, intact) Musculoskeletal: No clubbing Integumentary: No rashes Neurological: Normal speech, Normal affect Laboratory Data at Discharge: WBC 3.80 K/uL (4.3-10.9) L 12/15/22 06:12 Hgb 10.8 g/dL (12.0-15.0) L D 12/15/22 06:12 Hct 31.0 % (36.0-45.0) L 12/15/22 06:12 Plt Count 154 K/uL (152-406) 12/15/22 06:12 Sodium 140 mmol/L (136-145) 12/15/22 06:12 Potassium 3.3 mmol/L (3.5-5.1) L 12/15/22 06:12 BUN 3 mg/dL (7-18) L 12/15/22 06:12 Creatinine 0.46 mg/dL (0.55-1.02) L 12/15/22 06:12 Glucose 131 mg/dL (74-106) H 12/15/22 06:12 Phosphorus 4.7 mg/dL (2.5-4.9) 12/11/22 03:52 Magnesium 1.8 mg/dL (1.6-2.4) 12/14/22 06:40 Total Bilirubin 0.5 mg/dL (0.2-1.0) 12/10/22 16:30 AST 17 U/L (15-37) 12/10/22 16:30 ALT 24 U/L (13-56) 12/10/22 16:30 Alkaline Phosphatase 66 U/L (45-117) 12/10/22 16:30 Triglycerides 95 mg/dL (<150) 12/11/22 03:52 Cholesterol 128 mg/dL (<200) 12/11/22 03:52 HDL Cholesterol 48 mg/dL (40-60) 12/11/22 03:52 Cholesterol/HDL Ratio 2.67 12/11/22 03:52 Lipase 49 U/L (73-393) L 12/10/22 16:30 Home Medications: Atorvastatin Calcium 1 tab PO BEDTIME 12/11/22 Physician Discharge Instructions: 1. Please call and schedule a follow-up appointment with your PCP (Dr. Medeiros) in 3-5 days - There was a small amount of blood in your urine, which can be an early sign of cancer. Please make sure to follow this up with your PCP 2. Please call and schedule a follow-up appointment with General Surgery (Dr. Muñiz) in 5-7 days 3. Please follow-up with your Pain Medicine specialist (Dr. Baez) as previously scheduled Diet: Regular Activity: Ad merritt Followup: Sheree Medeiros MD [Primary Care Provider] - Anatoliy Baez [ASSOCIATE-COURTESY - CAN ADMIT] - Gurpreet Muñiz MD [ACTIVE - CAN ADMIT] - Time spent managing pt's care (in minutes): 20
[2022-12-15] MEDS ORDERED: POTASSIUM CL SA 10 MEQ TAB PO ONE (09:00)
--- NOTE | 2022-12-15 13:06 | PN ---
Date of Progress Note: 12/15/2022 Subjective: Status post bowel resection anastomosis and repair of any strangulated hernia. Patient is doing great. No nausea, no vomiting. Passing flatus, having bowel movement. She had no shortnes s of breath. No chest pain. Objective: Chest: Clear. Abdomen: Soft and depressible. Intact surgical site. Extremities: Good capillary refill. No calf tenderness. Plan: From the surgical standpoint, patient is okay to be discharged home. Patient will continue so ft diet. Follow in my office on Thursday to remove olga. No heavy lifting. May take shower with d ressings off. Avoid constipation. She has a history of that. She was advised the importance of fol lowing up with her director business management. JALYN/VONDA Voice ID: [id number] Report ID: [id number]
--- NOTE | 2022-12-15 19:27 | OP ---
Date of Procedure: 12/15/2022 Surgeon: Gurpreet Muñiz MD Preoperative Diagnoses: Small bowel obstruction and incarcerated inguinal hernia. Postoperative Diagnosis: Strangulated right femoral hernia. Procedure: Diagnostic laparoscopy with exploratory laparotomy, small bowel resection with anastomosi s, and open repair of a strangulated femoral hernia. Findings: Small bowel is strangulated in the femoral hernia. Implants: . Complications: None. Findings: No viable bowels. Indications: This is a case of a 62-year-old patient who comes to us with a right inguinal pain and discomfort, found to have a small bowel obstruction with possible right inguinal hernia as the cause of it. The patient a few days ago had a hysterectomy. She has been taking some pain medication and she got constipated again and I guess that all those factors contributed to this problem. The patien t was fully explained the need for exploration of the hernia area and possible diagnostic laparoscopy , possible laparotomy, possible resection, and repair of hernia. The benefits, alternatives, and ris ks were fully explained which include, but are not limited to infection, bleeding, damage to adjacent structures, anesthesia complication, recurrence, KS, and even . She also understands this may not relieve any symptoms and she might need more than one surgical intervention. She understood, sig hemal a consent. Procedure In Detail: The patient was brought to the operating room, placed in supine position, and a nesthesia was done without complication. Abdominal and inguinal region were prepped and draped in a sterile fashion. Local anesthesia was applied followed by sharp incision of the skin in the infraumb ilical region. Incision was carried down to fascia, which was opened under direct vision. Peritoneu m was encountered, opened under direct vision. Vicryl #1 placed inside the fascia. Kate trocar wa s carefully introduced and pneumoperitoneum was obtained. At that moment, I put the cameras inside t here. We tried to look at the area of the process. We noticed fluid into the pelvis that was carefu lly cleaned and that probably passed off as part of the postoperative changes, but then we have this loop of bowel in the right inguinal region that it cannot be reduced. After multiple attempts laparo scopically, I believe it is unsafe to continue this way. We may have to make an incision in the ingu inal region to trying to see bowel. So at that moment, I proceeded to make an incision in the right inguinal region. Incision was carried down to fascia. The [place] fascia was opened under direct vision and when we went there, we noticed what the patient has is a femoral hernia. When we opened the hernia sac, we noticed the bowel not to be viable. We were able to by the help of the ins [place] laparoscopic reduce that bowel into the abdomen, but unfortunately that bowel does not look healthy enough to be left in that region. We kept that in place. We are going to eviscerate t hat bowel through the ventral region where we had previous trocars and we got the anastomosis in that region. In the meantime, we proceeded to fix the femoral hernia first. Hernia sac was removed. Th e hernia sac was carefully ligated after reducing the intestines ready and was ligated and closed wit h the Prolene. The plug mesh was selected to completely fill the defect without the compressing the femoral vein. It was placed in the femoral canal, sutured in place with Prolene sutures. Once again , we made sure that we did protect the nerve including the ilioinguinal nerve. The wound was profuse ly irrigated and subcutaneous tissue closed with 3-0 chromic and skin with olga. Once we had that area closed, we protected it from contamination and we proceeded then to go to the umbilical region. We extended that incision caudal to do a mini-laparotomy. Once we had the laparotomy in place, we irrigated the abdomen profusely. We eviscerated the small bowel and it came out easily to be able to do an extracorporeal anastomosis. At that moment, I proceeded to obtain proximal and distal control , opened the mesentery, transect the proximal and distal bowel and the area looks viable and that was done with the GIA55. The mesentery was ligated with the help of LigaSure. No bleeding. Also 3-0 s ilk was used. At that moment, we proceeded to place the proximal and distal end of the small bowel t ogether and secured the end of that anastomosis with 3-0 silk. Due to small enterotomies with a GIA6 0 on the antimesenteric border and fired the JENNY. At that moment, we made sure the anastomosis is op en viable and there was no bleeding. We closed the enterotomy with TA60. The mesentery was closed w ith 3-0 chromic. We ran the bowel from the ligament of Treitz all the way down to the ileocecal anas tomosis. We noticed now the previous distended bowel now decompressing into the distal bowel. Ascen ding, transverse, and descending colon with no extraluminal mass effect. Stomach is soft and renny sible. At that moment, I proceeded to do profuse irrigation and once again anastomosis lo oks viable. No bleeding. We then aligned the bowel back without any kink. Then after that some of the omentum was put on top and then closed the area with #1 PDS, closed the fascia with #1 PDS and th e subcutaneous tissue with 3-0 chromic after profuse irrigation and skin with olga. Sponge count and instrument counts were correct. The patient tolerated the procedure well. The patient was sent to recovery in stable condition. JALYN/VONDA Voice ID: [id number] Report ID: [id number]
== END 2022-12-15 10:56 | disposition home or self-care (01) | DRG 331 ==
LOC: ER 15:42 → ERHOLD 19:27 → 2ND 22:07
PROVIDERS: ADMIT Hospitalist; ATTEND Internal Medicine
PROC: 0DB80ZZ Excision of Small Intestine, Open Approach (ICD-10-PCS; principal; 2022-12-15)
PROC: 0YQ50ZZ Repair Right Inguinal Region, Open Approach (ICD-10-PCS; 2022-12-15)
DX: K40.30 Unilateral inguinal hernia, with obstruction, without gangrene, not specified as recurrent (principal); I10 Essential (primary) hypertension; J44.9 Chronic obstructive pulmonary disease, unspecified; N28.1 Cyst of kidney, acquired; K59.00 Constipation, unspecified; R31.29 Other microscopic hematuria; Z88.1 Allergy status to other antibiotic agents; Z88.8 Allergy status to other drugs, medicaments and biological substances; Z90.710 Acquired absence of both cervix and uterus; Z85.118 Personal history of other malignant neoplasm of bronchus and lung; Z87.891 Personal history of nicotine dependence; Z20.822 Contact with and (suspected) exposure to COVID-19
CPT/HCPCS: 36415; 71275; 74018; 74177; 80048; 80053; 80061; 81003; 82947; 83690; 83735; 84100; 85025; 87811; 88302; 88304; 88307; 94010; 96361; 96374; 96375; 97116; 97161; 99285; J0330; J1100; J1170; J1650; J2001; J2250; J2405; J2543; J2704; J2710; J2765; J3010; J3480; J7120; Q9967

== ENCOUNTER 2025-01-16 11:45 | Emergency (ER) | payer OTHER ==
--- OUTSIDE RECORDS SUMMARY | 2025-01-16 11:53 | XMS REPORT | Continuity of Care Document ---
Author Name Unknown Address [address] 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 Role Phone Mary Denton MD Primary Care Physician Liz Gomez Attending Clinician Unavailable QASIM DELCID Attending Clinician UnaLUIS Barrios Attending Clinician Unavailable LUIS HARLEY Attending Clinician Unavailable MADHU WADE Attending Clinician Unavailable ALICE SEBASTIAN Attending Clinician Unavailable ALICE SEBASTIAN Attending Clinician Unavailable CHASITY VANEGAS Attending Clinician Unavailable [email or web address] Attending Clinician UnavailLuis Frey MD Attending Clinician [phone] Sheree Medeiros Attending Clinician Unavailjosie curran Doctor Unassigned, [place] Attending Clinician U Mary Coreas MD Attending Clinician [phone] Elise Haines MD Attending Clinician +-[phone] ELISE HAINES Attending Clinician Unavailable TERESA DEE Attending Clinician Unavail able Milton TRAN, Merissa Attending Clinician [phone] Anthony TRAN, Andrei Attending Clinician [phone] Lupe TRAN, Reina Dunn Attending Clinician + [phone] REINA GAGNON Attending Clinician Unavailjosie Couch MD, Hilaria Attending Clinician [phone] HILARIA COUCH Attending Clinician Unavailable Luiz KUMAR, Teresa Edwards Attending Clinician + [phone] Bhavin TRAN, Qasim Avery Attending Clinician + [phone] Anesthesiology Attending Clinician Unavailable 5, [facility] Infusion Chair Attending Clinician Bailey adams [facility] Attending Clinician Unavailable Jey BABB, Freda Prince Attending Clinician Unavailabl e 2, [facility] Attending Clinician Unavailable 4, [facility] Infusion Chair Attending Clinician BENNIE Parson Attending Clinician Unavail able Nurse, [facility] Immunization Attending Clinician Unavailable Bennie Gore DO Attending Clinician [phone] Edmar Wiseman MD Attending Clinician [phone], [facility] Infusion Chair Attending Clinician Bailey Ayala, [facility] Main Attending Clinician Unavailabl Nimco Mendez Attending Clinician [phone] NIMCO DESIR Attending Clinician Unavailable ANDREI CRUZ Attending Clinician Unavailable TAYLER LYNN Attending Clinician Unavail able Tayler Lynn MD Attending Clinician [phone] 2, [facility] Infusion Chair Attending Clinician Bailey adams Nurse, [facility] Infusion Attending Clinician Unavaila bina 2, [facility] Adult Infusion Nurse Attending Clinician Unavailable 3, [facility] Adult Infusion Nurse Attending Clinician Unavailable ILIANA MARIEE Attending Clinician Unavaila bina Sanches RN, Chantel Le Attending Clinician Unavailab sheryl Snow MD, Jay Attending Clinician [phone] Madhu Wade MD Attending Clinician [phone] 1, [facility] Attending Clinician Unavailable Ollie TRAN, Daniel Attending Clinician [phone] Alice Sebastian DO Attending Clinician [phone] [facility] Attending Clinician Unavail able Only, [facility] Test Attending Clinician Unavailable Sheridan TRAN, Acosta Attending Clinician +[phone] Nelia Dee LMSW Attending Clinician [phone] Sean Mcgill DO Attending Clinician +[phone] SEAN MCGILL Attending Clinician Unavailable Provider, [facility] Attending Clinician Un available Arpita Lin Attending Clinician [phone] Chasity Vanegas MD Attending Clinician [phone] , [facility] Spec Procedure Attending Clinician Unavailable MARY DENTON Attending Clinician Unagautam Mcnally MD, Seven Prince Attending Clinician [phone] QASIM DELCID Admitting Clinician LUIS Obrien Admitting Clinician Unavailable MADHU WADE Admitting Clinician Unavailable ALICE SEBASTIAN Admitting Clinician Unavailable CHASITY VANEGAS Admitting Clinician Unavailable [email or web address]_S Admitting Clinician UnavailSheree Kelley Admitting Clinician Unavaila ELISE Sanz Admitting Clinician Unavailable Qasim Delcid MD Admitting Clinician + [phone] Luis Harley MD Admitting Clinician +[phone] Alice Sebastian DO Admitting Clinician +[phone] SEAN MCGILL Admitting Clinician Unavailable Chasity Vanegas MD Admitting Clinician [phone] Payers Payer Name Policy Type Policy Number Effective Date Expirati on Date Source [facility] [id number] 2017 00:00:00 [facility] AARP MCR Advantage (HMO-POS) [id number] 2024 00:00:00 [facility] HUMANA (PPO) [id number] Problems Condition Name Condition Details Condition Category Status Onset Date Resolution Date Last Treatment Date Treating Clinician Comments Source History of cervical dysplasia History of cervical dysplasia Disease Active 2021-1 1-07 00:00: 00 [facility] Arthritis, multiple joint involvemen t Arthritis, multiple joint involvemen t Disease Active 2020-11 0-19 00:00: 00 [facility] Thrombocyt openia Thrombocyt openia Disease Active 2020-11 0-19 00:00: 00 [facility] Thrombocyt openia Thrombocyt openia Disease Active 2020-11 0-19 00:00: 00 [facility] Swelling of right middle finger Swelling of right middle finger Disease Active 2020-11 0-06 00:00: 00 [facility] Allergic contact dermatitis due to plants, except food Allergic contact dermatitis due to plants, except food Disease Active 8- 00:00: 00 [facility] Change of skin related to chemothera py Change of skin related to chemothera py Disease Active 8- 00:00: 00 [facility] Spine metastasis Spine metastasis Disease Active 4-14 00:00: 00 [facility] Pulmonary hypertensi on Pulmonary hypertensi on Disease Active 4-14 00:00: 00 [facility] Mild cardiomega ly Mild cardiomega ly Disease Active 4-14 00:00: 00 [facility] Orthostati c hypotensio n Orthostati c hypotensio n Disease Active 4-14 00:00: 00 [facility] Lung mass Lung mass Disease Active 1-13 00:00: 00 [facility] Liver mass Liver mass Disease Active 1- 00:00: 00 [facility] Shortness of breath Shortness of breath Disease Active 1-13 00:00: 00 [facility] Bilateral renal cysts Bilateral renal cysts Disease Active 1-13 00:00: 00 [facility] Coronary artery calcificat ion Coronary artery calcificat ion Disease Active 1-13 00:00: 00 [facility] High priority for COVID-19 virus vaccinatio n High priority for COVID-19 virus vaccinatio n Disease Active 11-14 00:00: 00 [facility] Anxiety, generalize d Anxiety, generalize d Disease Active 11-14 00:00: 00 [facility] Non-cardia c chest pain Non-cardia c chest pain Disease Active 11-14 00:00: 00 [facility] Screening mammogram for breast cancer Screening mammogram for breast cancer Disease Active 2019-11 015 00:00: 00 Overview: Formattin g of this note might be different from the original. 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 Disease Active 2019-11 014 00:00: 00 [facility] Abrasion of left middle finger with infection Abrasion of left middle finger with infection Disease Active 2019-11 0 00:00: 00 [facility] Paronychia of left middle finger Paronychia of left middle finger Disease Active 2019-11 0 00:00: 00 [facility] Screening for cervical cancer Screening for cervical cancer Disease Active 07-25 00:00: 00 [facility] Cigarette nicotine dependence in remission Cigarette nicotine dependence in remission Disease Active 17 00:00: 00 [facility] COPD exacerbati on COPD exacerbati on Disease Active 905 00:00: 00 [facility] Encounter for screening for malignant neoplasm of lung Encounter for screening for malignant neoplasm of lung Disease Active 05-23 00:00: 00 [facility] Need for 23-polyval ent pneumococc al polysaccha ride vaccine Need for 23-polyval ent pneumococc al polysaccha ride vaccine Disease Active 05-23 00:00: 00 [facility] Poor nutrition Poor nutrition Disease Active 01-27 00:00: 00 [facility] S/P LEEP S/P LEEP Disease Active - 00:00: 00 [facility] S/P LEEP S/P LEEP Disease Active 01-07 00:00: 00 [facility] Severe dysplasia of cervix (MARTINA III) Severe dysplasia of cervix (MARTINA III) Disease Active 11-26 00:00: 00 [facility] Severe dysplasia of cervix (MARTINA III) Severe dysplasia of cervix (MARTINA III) Disease Active 11-26 00:00: 00 [facility] E. coli urinary tract infection E. coli urinary tract infection Disease Active 2015-11 00:00: 00 [facility] Alcohol use Alcohol use Disease Active 2015-11 00:00: 00 [facility] Tobacco use disorder Tobacco use disorder Disease Active 2015-11 00:00: 00 [facility] Postmenopa usal Postmenopa usal Disease Active 2015-11 00:00: 00 [facility] Vaginal atrophy Vaginal atrophy Disease Active 2015-11 00:00: 00 [facility] Adrenal nodule Adrenal nodule Disease Active 07-30 00:00: 00 [facility] Malignant neoplasm of main bronchus Malignant neoplasm of right main bronchus Problem [facility] Hypothyroi dism Hypothyroi dism, unspecifie d type Problem [facility] Decreased blood leucocyte number Other decreased white blood cell (WBC) count Problem [facility] 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 Problem [facility] Chronic pain syndrome Pain syndrome, chronic Problem [facility] [id number] Other chronic pain Problem [facility] 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 Problem [facility] [id number] Mixed hyperlipid emia Problem [facility] 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 Problem [facility] [id number] Essential (primary) hypertensi on Problem [facility] [id number] Postmenopa usal osteoporos is Problem [facility] [id number] Atrophic vaginitis Problem [facility] [id number] Small cell lung cancer Problem [facility] Cervicalgi a Cervicalgi a Problem [facility] Decreased hearing Decreased hearing Problem [facility] Allergies, Adverse Reactions, Alerts Allergy Name Allergy Type Status Severity Reaction(s) Onset Date Inactive Date Treating Clinician Comments Source tetracyc line DA Active U R[facility]-HIVES 12-04 00:00: 00 [facility] calcium carbonat e DA Active [place] RASH-HIVES 12-01 00:00: 00 [facility] naproxen DA Active SV SHORTNESS OF BREATH 12-01 00:00: 00 [facility] Calcium Carbonat e Propensi ty to adverse reaction s Active Rash 11-07 00:00: 00 Took generic antacid with calcium. [facility] CALCIUM CARBONAT E DRUG INGREDI Active Rash 11-07 00:00: 00 [facility] Codeine Propensi ty to adverse reaction s Active Rash 07-05 00:00: 00 [facility] Naproxen Propensi ty to adverse reaction s Active Shortness of Breath 07-05 00:00: 00 Ok with motrin. [facility] CODEINE DRUG INGREDI Active Rash 07-05 00:00: 00 [facility] NAPROXEN DRUG INGREDI Active Hives 07-05 00:00: 00 [facility] calcium carbonat e calcium carbonat e Active Unknown [facility] codeine codeine Active Unknown [facility] naproxen naproxen Active Unknown Commo n [facility] Social History Social Habit Start Date Stop Date Quantity Comments Source Sexual orientation U [facility] History of Tobacco Use [facility] Sex Assigned At [facility] Exposure to SARS-CoV-2 (event) 2021-09-22 00:00:00 2021-10-22 11:29:00 Not sure [facility] History of Social function 2021-10-14 00:00:00 2021-10-14 00:00:00 [facility] Tobacco Comment 2021-09-06 00:00:00 2021-09-06 00:00:00 uses nicotene patch occasionally [facility] Alcohol intake 2021-06-20 00:00:00 2021-06-20 00:00:00 Current drinker of alcohol (finding) [facility] Alcohol Comment 2017-09-18 00:00:00 2017-09-18 00:00:00 3-4 beers a day [facility] Cigarettes smoked current (pack per day) - Reported 2016-07-11 00:00:00 2016-07-11 00:00:00 [facility] Cigarette pack-years 2016-07-11 00:00:00 2016-07-11 00:00:00 [facility] Tobacco use and exposure 2016-07-11 00:00:00 2016-07-11 00:00:00 Smokeless tobacco non-user [facility] Smoking Status Start Date Stop Date Source Former Smoker 2024-10-18 00:00:00 2024-10-18 00:00:00 [facility] Never Smoker [facility] Smokes tobacco daily 2016-07-11 00:00:00 [facility] Medications Ordered Medication Name Filled Medication Name Start Date Stop Date Current Medication? Ordering Clinician Indication Dosage Frequency Signature (SIG) Comments Components Source predniSONE 20 MG predniSONE 20 MG 2023-11 00:00: 00 No 2{table t} QD predniSONE 20 MG Benzonatate 100 MG Benzonatate 100 MG 2023-11 00:00: 00 No 1{capsu le_as_n eeded} TID Benzonatat e 100 MG Alendronate Sodium 70 MG Alendronate Sodium 70 MG 04-28 00:00: 00 No Alendronat e Sodium 70 MG No known medications 2020-11 15:40: 11 No [facility] atorvastati n 20 mg tablet 2020-11 00:00: 00 Yes [id number] 20mg Take 1 tablet by mouth at bedtime. [facility] Atorvastati n Calcium 20 MG Atorvastati n Calcium 20 MG No 1{table t} Atorvastat in Calcium 20 MG Albuterol Sulfate HFA 108 (90 Base) MCG/ACT Albuterol Sulfate HFA 108 (90 Base) MCG/ACT No 1{puff_ as_need ed} 6xD Albuterol Sulfate HFA 108 (90 Base) MCG/ACT HYDROcodone -Acetaminop hen 7.5-325 MG HYDROcodone -Acetaminop hen 7.5-325 MG No HYDROcodon e-Acetamin ophen 7.5-325 MG Lisinopril 2.5 MG Lisinopril 2.5 MG No 1{table t} QD Lisinopril 2.5 MG Methocarbam ol 500 MG Methocarbam ol 500 MG No 1{table t} QD Methocarba mol 500 MG Estradiol 0.1 MG/GM Estradiol 0.1 MG/GM No Estradiol 0.1 MG/GM Immunizations Ordered Immunization Name Filled Immunization Name Date Status Comments Source Influenza Virus Vaccine Quad IM 3+ YRS 2021-08-28 00:00:00 Completed [facility] TDAP 2021-08-28 00:00:00 Completed [facility] Pneumococcal Polysaccharide, PPSV23 (PNEUMOVAX) 2021-08-28 00:00:00 Completed [facility] SARS-COV-2 COVID-19 PFIZER VACCINE 2021-08-28 00:00:00 Completed [facility] Pneumococcal Polysaccharide, PPSV23 (PNEUMOVAX) 2021-08-28 00:00:00 Completed [facility] Influenza Virus Vaccine Quad IM, Preserv and ABX Free 6 MO-64 YRS (FLUCELVAX) 2021-08-28 00:00:00 Completed [facility] SARS-COV-2 COVID-19 PFIZER VACCINE 2021-08-26 00:00:00 Completed [facility] SARS-COV-2 COVID-19 PFIZER VACCINE 2021-08-26 00:00:00 Completed [facility] SARS-COV-2 COVID-19 PFIZER VACCINE 2021-08-26 00:00:00 Completed [facility] SARS-COV-2 COVID-19 PFIZER VACCINE 2021-08-26 00:00:00 Completed [facility] SARS-COV-2 COVID-19 PFIZER VACCINE 2021-08-26 00:00:00 Completed [facility] SARS-COV-2 COVID-19 PFIZER VACCINE 2021-08-26 00:00:00 Completed [facility] SARS-COV-2 COVID-19 PFIZER VACCINE 2021-08-26 00:00:00 Completed [facility] SARS-COV-2 COVID-19 PFIZER VACCINE 2021-08-26 00:00:00 Completed [facility] SARS-COV-2 COVID-19 PFIZER VACCINE 2021-08-26 00:00:00 Completed [facility] SARS-COV-2 COVID-19 PFIZER VACCINE 2021-08-26 00:00:00 Completed [facility] SARS-COV-2 COVID-19 PFIZER VACCINE 2021-08-26 00:00:00 Completed [facility] SARS-COV-2 COVID-19 PFIZER VACCINE 2021-08-26 00:00:00 Completed [facility] SARS-COV-2 COVID-19 PFIZER VACCINE 2021-08-26 00:00:00 Completed [facility] SARS-COV-2 COVID-19 PFIZER VACCINE 2021-08-26 00:00:00 Completed [facility] Influenza Virus Vaccine Quad IM 3+ YRS 2021-08-26 00:00:00 Completed [facility] TDAP 2021-08-26 00:00:00 Completed [facility] Pneumococcal Polysaccharide, PPSV23 (PNEUMOVAX) 2021-08-26 00:00:00 Completed [facility] SARS-COV-2 COVID-19 PFIZER VACCINE 2021-08-26 00:00:00 Completed [facility] Pneumococcal Polysaccharide, PPSV23 (PNEUMOVAX) 2021-08-26 00:00:00 Completed [facility] Influenza Virus Vaccine Quad IM, Preserv and ABX Free 6 MO-64 YRS (FLUCELVAX) 2021-08-26 00:00:00 Completed [facility] Pneumococcal Polysaccharide, PPSV23 (PNEUMOVAX) 2021-08-20 00:00:00 Completed [facility] Influenza Virus Vaccine Quad IM, Preserv and ABX Free 6 MO-64 YRS 2021-08-20 00:00:00 Completed [facility] Pneumococcal Polysaccharide, PPSV23 (PNEUMOVAX) 2021-08-20 00:00:00 Completed [facility] Influenza Virus Vaccine Quad IM, Preserv and ABX Free 6 MO-64 YRS 2021-08-20 00:00:00 Completed [facility] Pneumococcal Polysaccharide, PPSV23 (PNEUMOVAX) 2021-08-20 00:00:00 Completed [facility] Influenza Virus Vaccine Quad IM, Preserv and ABX Free 6 MO-64 YRS 2021-08-20 00:00:00 Completed [facility] Pneumococcal Polysaccharide, PPSV23 (PNEUMOVAX) 2021-08-20 00:00:00 Completed [facility] Influenza Virus Vaccine Quad IM, Preserv and ABX Free 6 MO-64 YRS 2021-08-20 00:00:00 Completed [facility] Pneumococcal Polysaccharide, PPSV23 (PNEUMOVAX) 2021-08-20 00:00:00 Completed [facility] Influenza Virus Vaccine Quad IM, Preserv and ABX Free 6 MO-64 YRS 2021-08-20 00:00:00 Completed [facility] Pneumococcal Polysaccharide, PPSV23 (PNEUMOVAX) 2021-08-20 00:00:00 Completed [facility] Influenza Virus Vaccine Quad IM, Preserv and ABX Free 6 MO-64 YRS 2021-08-20 00:00:00 Completed [facility] Pneumococcal Polysaccharide, PPSV23 (PNEUMOVAX) 2021-08-20 00:00:00 Completed [facility] Influenza Virus Vaccine Quad IM, Preserv and ABX Free 6 MO-64 YRS 2021-08-20 00:00:00 Completed [facility] Pneumococcal Polysaccharide, PPSV23 (PNEUMOVAX) 2021-08-20 00:00:00 Completed [facility] Influenza Virus Vaccine Quad IM, Preserv and ABX Free 6 MO-64 YRS 2021-08-20 00:00:00 Completed [facility] Pneumococcal Polysaccharide, PPSV23 (PNEUMOVAX) 2021-08-20 00:00:00 Completed [facility] Influenza Virus Vaccine Quad IM, Preserv and ABX Free 6 MO-64 YRS 2021-08-20 00:00:00 Completed [facility] Pneumococcal Polysaccharide, PPSV23 (PNEUMOVAX) 2021-08-20 00:00:00 Completed [facility] Influenza Virus Vaccine Quad IM, Preserv and ABX Free 6 MO-64 YRS 2021-08-20 00:00:00 Completed [facility] Pneumococcal Polysaccharide, PPSV23 (PNEUMOVAX) 2021-08-20 00:00:00 Completed [facility] Influenza Virus Vaccine Quad IM, Preserv and ABX Free 6 MO-64 YRS 2021-08-20 00:00:00 Completed [facility] Pneumococcal Polysaccharide, PPSV23 (PNEUMOVAX) 2021-08-20 00:00:00 Completed [facility] Influenza Virus Vaccine Quad IM, Preserv and ABX Free 6 MO-64 YRS 2021-08-20 00:00:00 Completed [facility] Pneumococcal Polysaccharide, PPSV23 (PNEUMOVAX) 2021-08-20 00:00:00 Completed [facility] Influenza Virus Vaccine Quad IM, Preserv and ABX Free 6 MO-64 YRS 2021-08-20 00:00:00 Completed [facility] Pneumococcal Polysaccharide, PPSV23 (PNEUMOVAX) 2021-08-20 00:00:00 Completed [facility] Influenza Virus Vaccine Quad IM, Preserv and ABX Free 6 MO-64 YRS 2021-08-20 00:00:00 Completed [facility] Influenza Virus Vaccine Quad IM 3+ YRS 2021-06-21 00:00:00 Completed [facility] TDAP 2021-06-21 00:00:00 Completed [facility] Pneumococcal Polysaccharide, PPSV23 (PNEUMOVAX) 2021-06-21 00:00:00 Completed [facility] SARS-COV-2 COVID-19 PFIZER VACCINE 2021-06-21 00:00:00 Completed [facility] SARS-COV-2 COVID-19 PFIZER VACCINE 2021-06-20 00:00:00 Completed [facility] SARS-COV-2 COVID-19 PFIZER VACCINE 2021-06-20 00:00:00 Completed [facility] SARS-COV-2 COVID-19 PFIZER VACCINE 2021-06-20 00:00:00 Completed [facility] SARS-COV-2 COVID-19 PFIZER VACCINE 2021-06-20 00:00:00 Completed [facility] SARS-COV-2 COVID-19 PFIZER VACCINE 2021-06-20 00:00:00 Completed [facility] SARS-COV-2 COVID-19 PFIZER VACCINE 2021-06-20 00:00:00 Completed [facility] SARS-COV-2 COVID-19 PFIZER VACCINE 2021-06-20 00:00:00 Completed [facility] SARS-COV-2 COVID-19 PFIZER VACCINE 2021-06-20 00:00:00 Completed [facility] SARS-COV-2 COVID-19 PFIZER VACCINE 2021-06-20 00:00:00 Completed [facility] SARS-COV-2 COVID-19 PFIZER VACCINE 2021-06-20 00:00:00 Completed [facility] SARS-COV-2 COVID-19 PFIZER VACCINE 2021-06-20 00:00:00 Completed [facility] SARS-COV-2 COVID-19 PFIZER VACCINE 2021-06-20 00:00:00 Completed [facility] SARS-COV-2 COVID-19 PFIZER VACCINE 2021-06-20 00:00:00 Completed [facility] SARS-COV-2 COVID-19 PFIZER VACCINE 2021-06-20 00:00:00 Completed [facility] SARS-COV-2 COVID-19 PFIZER VACCINE 2021-05-30 00:00:00 Completed [facility] SARS-COV-2 COVID-19 PFIZER VACCINE 2021-05-30 00:00:00 Completed [facility] SARS-COV-2 COVID-19 PFIZER VACCINE 2021-05-30 00:00:00 Completed [facility] SARS-COV-2 COVID-19 PFIZER VACCINE 2021-05-30 00:00:00 Completed [facility] SARS-COV-2 COVID-19 PFIZER VACCINE 2021-05-30 00:00:00 Completed [facility] SARS-COV-2 COVID-19 PFIZER VACCINE 2021-05-30 00:00:00 Completed [facility] SARS-COV-2 COVID-19 PFIZER VACCINE 2021-05-30 00:00:00 Completed [facility] SARS-COV-2 COVID-19 PFIZER VACCINE 2021-05-30 00:00:00 Completed [facility] SARS-COV-2 COVID-19 PFIZER VACCINE 2021-05-30 00:00:00 Completed [facility] SARS-COV-2 COVID-19 PFIZER VACCINE 2021-05-30 00:00:00 Completed [facility] SARS-COV-2 COVID-19 PFIZER VACCINE 2021-05-30 00:00:00 Completed [facility] SARS-COV-2 COVID-19 PFIZER VACCINE 2021-05-30 00:00:00 Completed [facility] SARS-COV-2 COVID-19 PFIZER VACCINE 2021-05-30 00:00:00 Completed [facility] SARS-COV-2 COVID-19 PFIZER VACCINE 2021-05-30 00:00:00 Completed [facility] Influenza Virus Vaccine Quad .5 mL IM 6+ MO 2020-07-19 00:00:00 Completed [facility] Pneumococcal Polysaccharide, PPSV23 (PNEUMOVAX) 2020-07-19 00:00:00 Completed [facility] Influenza Virus Vaccine Quad .5 mL IM 6+ MO 2020-07-19 00:00:00 Completed [facility] Pneumococcal Polysaccharide, PPSV23 (PNEUMOVAX) 2020-07-19 00:00:00 Completed [facility] Influenza Virus Vaccine Quad .5 mL IM 6+ MO 2020-07-19 00:00:00 Completed [facility] Pneumococcal Polysaccharide, PPSV23 (PNEUMOVAX) 2020-07-19 00:00:00 Completed [facility] Influenza Virus Vaccine Quad .5 mL IM 6+ MO 2020-07-19 00:00:00 Completed [facility] Pneumococcal Polysaccharide, PPSV23 (PNEUMOVAX) 2020-07-19 00:00:00 Completed [facility] Influenza Virus Vaccine Quad .5 mL IM 6+ MO 2020-07-19 00:00:00 Completed [facility] Pneumococcal Polysaccharide, PPSV23 (PNEUMOVAX) 2020-07-19 00:00:00 Completed [facility] Influenza Virus Vaccine Quad .5 mL IM 6+ MO 2020-07-19 00:00:00 Completed [facility] Pneumococcal Polysaccharide, PPSV23 (PNEUMOVAX) 2020-07-19 00:00:00 Completed [facility] Influenza Virus Vaccine Quad .5 mL IM 6+ MO 2020-07-19 00:00:00 Completed [facility] Pneumococcal Polysaccharide, PPSV23 (PNEUMOVAX) 2020-07-19 00:00:00 Completed [facility] Influenza Virus Vaccine Quad .5 mL IM 6+ MO 2020-07-19 00:00:00 Completed [facility] Pneumococcal Polysaccharide, PPSV23 (PNEUMOVAX) 2020-07-19 00:00:00 Completed [facility] Influenza Virus Vaccine Quad .5 mL IM 6+ MO 2020-07-19 00:00:00 Completed [facility] Pneumococcal Polysaccharide, PPSV23 (PNEUMOVAX) 2020-07-19 00:00:00 Completed [facility] Influenza Virus Vaccine Quad .5 mL IM 6+ MO 2020-07-19 00:00:00 Completed [facility] Pneumococcal Polysaccharide, PPSV23 (PNEUMOVAX) 2020-07-19 00:00:00 Completed [facility] Influenza Virus Vaccine Quad .5 mL IM 6+ MO 2020-07-19 00:00:00 Completed [facility] Pneumococcal Polysaccharide, PPSV23 (PNEUMOVAX) 2020-07-19 00:00:00 Completed [facility] Influenza Virus Vaccine Quad .5 mL IM 6+ MO 2020-07-19 00:00:00 Completed [facility] Pneumococcal Polysaccharide, PPSV23 (PNEUMOVAX) 2020-07-19 00:00:00 Completed [facility] Influenza Virus Vaccine Quad .5 mL IM 6+ MO 2020-07-19 00:00:00 Completed [facility] Pneumococcal Polysaccharide, PPSV23 (PNEUMOVAX) 2020-07-19 00:00:00 Completed [facility] Influenza Virus Vaccine Quad .5 mL IM 6+ MO 2020-07-19 00:00:00 Completed [facility] Pneumococcal Polysaccharide, PPSV23 (PNEUMOVAX) 2020-07-19 00:00:00 Completed [facility] TDAP 2019-05-23 00:00:00 Completed [facility] TDAP 2019-05-23 00:00:00 Completed [facility] TDAP 2019-05-23 00:00:00 Completed [facility] TDAP 2019-05-23 00:00:00 Completed [facility] TDAP 2019-05-23 00:00:00 Completed [facility] TDAP 2019-05-23 00:00:00 Completed [facility] TDAP 2019-05-23 00:00:00 Completed [facility] TDAP 2019-05-23 00:00:00 Completed [facility] TDAP 2019-05-23 00:00:00 Completed [facility] TDAP 2019-05-23 00:00:00 Completed [facility] TDAP 2019-05-23 00:00:00 Completed [facility] TDAP 2019-05-23 00:00:00 Completed [facility] TDAP 2019-05-23 00:00:00 Completed [facility] TDAP 2019-05-23 00:00:00 Completed [facility] Influenza Virus Vaccine Quad IM 3+ YRS 2016-08-15 00:00:00 Completed [facility] Influenza Virus Vaccine Quad IM 3+ YRS 2016-08-15 00:00:00 Completed [facility] Influenza Virus Vaccine Quad IM 3+ YRS 2016-08-15 00:00:00 Completed [facility] Influenza Virus Vaccine Quad IM 3+ YRS 2016-08-15 00:00:00 Completed [facility] Influenza Virus Vaccine Quad IM 3+ YRS 2016-08-15 00:00:00 Completed [facility] Influenza Virus Vaccine Quad IM 3+ YRS 2016-08-15 00:00:00 Completed [facility] Influenza Virus Vaccine Quad IM 3+ YRS 2016-08-15 00:00:00 Completed [facility] Influenza Virus Vaccine Quad IM 3+ YRS 2016-08-15 00:00:00 Completed [facility] Influenza Virus Vaccine Quad IM 3+ YRS 2016-08-15 00:00:00 Completed [facility] Influenza Virus Vaccine Quad IM 3+ YRS 2016-08-15 00:00:00 Completed [facility] Influenza Virus Vaccine Quad IM 3+ YRS 2016-08-15 00:00:00 Completed [facility] Influenza Virus Vaccine Quad IM 3+ YRS 2016-08-15 00:00:00 Completed [facility] Influenza Virus Vaccine Quad IM 3+ YRS 2016-08-15 00:00:00 Completed [facility] Influenza Virus Vaccine Quad IM 3+ YRS 2016-08-15 00:00:00 Completed [facility] Fluarix (IIV4) - SDS - 0.5mL Fluarix (IIV4) - SDS - 0.5mL Unknown Completed [facility] Flucelvax (ccIIV4) - MDV - 0.5mL Flucelvax (ccIIV4) - MDV - 0.5mL Unknown Completed [facility] Prevnar 13 (PCV13) Prevnar 13 (PCV13) Unknown Completed [facility] Fluarix (IIV4) - SDS - 0.5mL Fluarix (IIV4) - SDS - 0.5mL Unknown Completed [facility] Flucelvax (ccIIV4) - MDV - 0.5mL Flucelvax (ccIIV4) - MDV - 0.5mL Unknown Completed [facility] Prevnar 13 (PCV13) Prevnar 13 (PCV13) Unknown Completed [facility] Fluarix (IIV4) - SDS - 0.5mL Fluarix (IIV4) - SDS - 0.5mL Unknown Completed [facility] Flucelvax (ccIIV4) - MDV - 0.5mL Flucelvax (ccIIV4) - MDV - 0.5mL Unknown Completed [facility] Prevnar 13 (PCV13) Prevnar 13 (PCV13) Unknown Completed [facility] Fluarix (IIV4) - SDS - 0.5mL Fluarix (IIV4) - SDS - 0.5mL Unknown Completed [facility] Flucelvax (ccIIV4) - MDV - 0.5mL Flucelvax (ccIIV4) - MDV - 0.5mL Unknown Completed [facility] Prevnar 13 (PCV13) Prevnar 13 (PCV13) Unknown Completed [facility] Fluarix (IIV4) - SDS - 0.5mL Fluarix (IIV4) - SDS - 0.5mL Unknown Completed [facility] Flucelvax (ccIIV4) - MDV - 0.5mL Flucelvax (ccIIV4) - MDV - 0.5mL Unknown Completed [facility] Prevnar 13 (PCV13) Prevnar 13 (PCV13) Unknown Completed [facility] Fluarix (IIV4) - SDS - 0.5mL Fluarix (IIV4) - SDS - 0.5mL Unknown Completed [facility] Flucelvax (ccIIV4) - MDV - 0.5mL Flucelvax (ccIIV4) - MDV - 0.5mL Unknown Completed [facility] Prevnar 13 (PCV13) Prevnar 13 (PCV13) Unknown Completed [facility] Flucelvax - multidose vial Flucelvax - multidose vial Unknown Completed [facility] Prevnar 13 (PCV13) Prevnar 13 (PCV13) Unknown Completed [facility] Fluarix Fluarix Unknown Completed [facility] Flucelvax - multidose vial Flucelvax - multidose vial Unknown Completed [facility] Prevnar 13 (PCV13) Prevnar 13 (PCV13) Unknown Completed [facility] Fluarix Fluarix Unknown Completed [facility] Flucelvax - multidose vial Flucelvax - multidose vial Unknown Completed [facility] Prevnar 13 (PCV13) Prevnar 13 (PCV13) Unknown Completed [facility] Vital Signs Vital Name Observation Time Observation Value Comments S ource height 2024-10-20 09:20:00 65 [in_i] Commo n [facility] weight 2024-10-20 09:20:00 137.8 [lb_av] Co mmon [facility] temperature 2024-10-20 09:20:00 97.1 [degF] Com mon [facility] bmi 2024-10-20 09:20:00 22.93 kg/m2 Comm on [facility] oximetry 2024-10-20 09:20:00 96 % Commo n [facility] respiratory rate 2024-10-20 09:20:00 16 /min Common [facility] blood pressure systolic 2024-10-20 09:20:00 132 mm[Hg] Common [facility] blood pressure diastolic 2024-10-20 09:20:00 80 mm[Hg] [facility] height 2024-04-28 09:40:00 65 [in_i] Commo n [facility] weight 2024-04-28 09:40:00 132.6 [lb_av] Co mmon [facility] temperature 2024-04-28 09:40:00 97.3 [degF] Com [facility] bmi 2024-04-28 09:40:00 22.06 kg/m2 Comm on [facility] oximetry 2024-04-28 09:40:00 96 % Commo n [facility] respiratory rate 2024-04-28 09:40:00 16 /min [facility] blood pressure systolic 2024-04-28 09:40:00 130 mm[Hg] Common [facility] blood pressure diastolic 2024-04-28 09:40:00 72 mm[Hg] Common [facility] height 2024-04-28 09:40:00 65 [in_i] Commo n [facility] weight 2024-04-28 09:40:00 132.6 [lb_av] Co mmon [facility] temperature 2024-04-28 09:40:00 97.3 [degF] Com [facility] bmi 2024-04-28 09:40:00 22.06 kg/m2 Comm on [facility] oximetry 2024-04-28 09:40:00 96 % Commo n [facility] respiratory rate 2024-04-28 09:40:00 16 /min Common [facility] blood pressure systolic 2024-04-28 09:40:00 130 mm[Hg] [facility] blood pressure diastolic 2024-04-28 09:40:00 72 mm[Hg] [facility] height 2024-03-14 15:00:00 65 [in_i] Commo n [facility] weight 2024-03-14 15:00:00 135.6 [lb_av] Co mmon [facility] temperature 2024-03-14 15:00:00 97.5 [degF] Com mon [facility] bmi 2024-03-14 15:00:00 22.56 kg/m2 Comm on [facility] oximetry 2024-03-14 15:00:00 94 % Commo n [facility] respiratory rate 2024-03-14 15:00:00 16 /min Common [facility] blood pressure systolic 2024-03-14 15:00:00 130 mm[Hg] [facility] blood pressure diastolic 2024-03-14 15:00:00 76 mm[Hg] [facility] height 2024-03-14 15:00:00 65 [in_i] Commo n [facility] weight 2024-03-14 15:00:00 135.6 [lb_av] Co mmon [facility] temperature 2024-03-14 15:00:00 97.5 [degF] Com mon [facility] bmi 2024-03-14 15:00:00 22.56 kg/m2 Comm on [facility] oximetry 2024-03-14 15:00:00 94 % Commo n [facility] respiratory rate 2024-03-14 15:00:00 16 /min [facility] blood pressure systolic 2024-03-14 15:00:00 130 mm[Hg] [facility] blood pressure diastolic 2024-03-14 15:00:00 76 mm[Hg] [facility] height 2023-09-14 15:00:00 65 [in_i] Commo n [facility] weight 2023-09-14 15:00:00 136.0 [lb_av] Co mmon [facility] temperature 2023-09-14 15:00:00 96.5 [degF] Com mon [facility] bmi 2023-09-14 15:00:00 22.63 kg/m2 Comm on [facility] oximetry 2023-09-14 15:00:00 96 % Commo n [facility] respiratory rate 2023-09-14 15:00:00 16 /min [facility] blood pressure systolic 2023-09-14 15:00:00 134 mm[Hg] Common [facility] blood pressure diastolic 2023-09-14 15:00:00 72 mm[Hg] Common [facility] height 2023-02-02 16:20:00 65 [in_i] Commo n [facility] weight 2023-02-02 16:20:00 133.2 [lb_av] Co mmon [facility] temperature 2023-02-02 16:20:00 97.2 [degF] Com mon [facility] bmi 2023-02-02 16:20:00 22.16 kg/m2 Comm on [facility] oximetry 2023-02-02 16:20:00 96 % Commo n [facility] respiratory rate 2023-02-02 16:20:00 16 /min Common [facility] blood pressure systolic 2023-02-02 16:20:00 132 mm[Hg] Common [facility] blood pressure diastolic 2023-02-02 16:20:00 71 mm[Hg] Common [facility] Systolic blood pressure 2021-10-28 20:14:00 114 mm[Hg] [facility] Diastolic blood pressure 2021-10-28 20:14:00 72 mm[Hg] [facility] o [facility] Heart rate 2021-10-28 20:14:00 63 /min [facility] Body temperature 2021-10-28 20:14:00 36.78 Shruthi [facility] Body weight 2021-10-28 20:14:00 56.79 kg [facility] BMI 2021-10-28 20:14:00 20.21 kg/m2 [facility] Procedures Procedure Date / Time Performed Performing Clinician Source EXTERNAL PROVIDER RECORDS 2022-05-28 05:01:00 Doctor Unassigned, [place] [facility] REFERRAL- REQUEST/RESPONSE 2022-05-07 05:01:00 Doctor Unassigned, [place] [facility] REFERRAL- REQUEST/RESPONSE 2022-02-07 05:01:00 Doctor Unassigned, [place] [facility] AUTHORIZATION FOR RELEASE OF PHI 2021-12-20 06:01:00 Doctor Unassigned, [place] [facility] AUTHORIZATION FOR RELEASE OF PHI 2021-12-10 06:01:00 Doctor Unassigned, [place] [facility] PATIENT QUESTIONNAIRE 2021-10-28 06:01:00 Doctor Unassigned, [place] [facility] POCT URINALYSIS W/O SPECIFIC GRAVITY 2021-10-28 00:00:00 Merissa Rose [facility] DISCLOSURE AND CONSENT MEDICAL & SURGICAL PROCEDURES - FEMALM 2021-10-18 06:01:00 Doctor Unassigned, [place] [facility] Encounters Start Date/Time End Date/Time Encounter Type Admission Type Attending [facility] Care Facility Care Department Encounter ID Source 2025-01-12 15:00:00 Outpatient Liz Gomez [facility] [id number] [facility] 2024-10-13 11:28:00 Outpatient Liz Gomez [facility] [id number] [facility] 2024-04-26 07:32:00 Outpatient Liz Gomez [facility] [id number] [facility] 2024-03-10 08:07:00 Outpatient Liz Gomez [facility] [id number] [facility] 2023-09-11 13:52:00 Outpatient Liz Gomez [facility] [id number] [facility] 2023-09-10 08:17:00 Outpatient Liz Gomez [facility] [id number] [facility] 2023-02-02 15:49:02 Outpatient Liz Gomez [facility] [id number] [facility] 2021-10-08 09:29:58 Outpatient QASIM BARTLETT [facility] RAD [id number] [facility] 2021-10-03 12:52:32 Outpatient LUIS WHITE MAURICE [facility] RAD [id number] [facility] 2021-10-01 10:59:27 Outpatient LUIS WHITE MAURICE [facility] RAD [id number] [facility] 2021-09-03 08:37:11 Emergency [facility] [id number] [facility] 2021-09-01 10:22:54 Outpatient MADHU LOMAS [facility] SNS [id number] [facility] 2021-09-01 03:20:20 Outpatient ALICE SEBASTIAN SHIWAN [facility] MPU [id number] [facility] 2021-08-31 01:32:49 Outpatient CHASITY METZGER [facility] DARIN [id number] [facility] 2025-01-05 00:00:00 2025-01-05 00:00:00 (TEL) [facility] [id number] [facility] 2024-10-20 00:00:00 2024-10-20 00:00:00 OFFICE VISIT ESTAB PT LEVEL 4 [facility]C ST[facility]C [id number] [facility] 2024-04-28 00:00:00 2024-04-28 00:00:00 OFFICE VISIT ESTAB PT LEVEL 4 [facility]LMLC STL[facility]C [id number] [facility] 2024-04-19 00:00:00 2024-04-19 00:00:00 (TEL) STLMLC STLMLC [id number] [facility] 2024-04-18 00:00:00 2024-04-18 00:00:00 (TEL) STLMLC STLMLC [id number] [facility] 2024-03-14 00:00:00 2024-03-14 00:00:00 OFFICE VISIT ESTAB PT LEVEL 4 STLMLC STLMLC [id number] [facility] 2024-03-14 00:00:00 2024-03-14 00:00:00 WELCOME TO MEDICARE PREV PHY EXAM STLMLC STLMLC [id number] [facility] 2023-12-30 00:00:00 2023-12-30 00:00:00 (TEL) STLMLC STLMLC [id number] [facility] 2023-12-08 00:00:00 2023-12-08 00:00:00 Outpatient GC_GCBZW_Ka diyala_S PRIV PRIV [id number] [facility] 2023-11-26 00:00:00 2023-11-26 00:00:00 Outpatient GC_GCBZW_Ka diyala_S PRIV PRIV [id number] [facility] 2023-11-20 00:00:00 2023-11-20 00:00:00 (TEL) STLMLC STLMLC [id number] [facility] 2023-10-07 00:00:00 2023-10-07 00:00:00 Outpatient GC_GCBZW_Ka diyala_S PRIV PRIV [id number] [facility] 2023-09-14 00:00:00 2023-09-14 00:00:00 OFFICE VISIT ESTAB PT LEVEL 4 STLMLC STLMLC [id number] [facility] 2023-09-01 00:00:00 2023-09-01 00:00:00 Outpatient GC_GCBZW_Ka diyala_S PRIV PRIV [id number] [facility] 2023-09-01 00:00:00 2023-09-01 00:00:00 Outpatient GC_GCBZW_Ka diyala_S PRIV PRIV [id number] [facility] 2023-08-31 00:00:00 2023-08-31 00:00:00 Outpatient GC_GCBZW_Ka diyala_S PRIV PRIV [id number] [facility] 2023-04-03 00:00:00 2023-04-03 00:00:00 (TEL) STLC [facility] [id number] [facility] 2023-03-26 00:00:00 2023-03-26 00:00:00 (TEL) STLC [facility] [id number] [facility] 2023-02-02 00:00:00 2023-02-02 00:00:00 OFFICE VISIT ESTAB PT LEVEL 4 [facility]LC STLC [id number] [facility] 2023-01-28 00:00:00 2023-01-28 00:00:00 Case Management Luis Harley [facility] 1.840.114 350.1.13.10 4.2.7.2.686 [id number] [facility] 2022-12-04 06:03:00 2022-12-05 15:30:00 Inpatient Sheree Nathan [facility] MEDI.[id number] [facility] 2022-05-28 00:00:00 2022-05-28 00:00:00 Orders Only Doctor Unassigned, [place] [facility] 1..840.114 350.1.13.10 4.2.7.2.686 [id number] [id number] [facility] 2022-05-12 00:00:00 2022-05-12 00:00:00 Telephone Mary Denton [facility] 1.2.840.114 350.1.13.10 4.2.7.2.686 [id number] [facility] 2022-05-09 00:00:00 2022-05-09 00:00:00 Telephone Mary Denton [facility] 1.2.840.114 350.1.13.10 4.2.7.2.686 [id number] [facility] 2022-05-07 00:00:00 2022-05-07 00:00:00 Orders Only Doctor Unassigned, [place] [facility] 1.2.840.114 350.1.13.10 4.2.7.2.686 [id number] [facility] 2022-02-11 00:00:00 2022-02-11 00:00:00 Elise Kat [facility] 1.2.840.114 350.1.13.10 4.2.7.2.686 [id number] [facility] 2022-02-07 00:00:00 2022-02-07 00:00:00 Orders Only Doctor Unassigned, [place] [facility] 1.2.840.114 350.1.13.10 4.2.7.2.686 [id number] [facility] 2021-12-20 00:00:00 2021-12-20 00:00:00 Orders Only Doctor Unassigned, [place] [facility] 1.2.840.114 350.1.13.10 4.2.7.2.686 [id number] [id number] [facility] 2021-12-10 00:00:2021-12-10 00:00:00 Orders Only Doctor Unassigned, [place] [facility] 1..840.114 350.1.13.10 4.2.7.2.686 [id number] [facility] 2021-12-02 10:20:00 2021-12-02 10:20:00 Outpatient LUIS WHITE [facility]ICE [facility] [id number] [facility] 2021-11-22 14:40:00 2021-11-22 14:40:00 Outpatient ELISE LUND [facility] [id number] [facility] 2021-11-22 14:40:00 2021-11-22 14:40:00 Outpatient ELISE LUND [facility] [id number] [facility] 2021-11-04 12:30:00 2021-11-04 12:30:00 Outpatient TERESA CLEMENTE [facility] [id number] [facility] 2021-11-04 00:00:00 2021-11-04 00:00:00 Telephone Luis Harley [facility] 1..840.114 350.1.13.10 4.2.7.2.686 [id number] [facility] 2021-11-01 08:45:00 2021-11-01 08:45:00 Outpatient LUIS WHITE [facility]URICE [facility] [id number] [facility] 2021-10-30 00:00:00 2021-10-30 00:00:00 Telephone MiltonMerissa [facility] 1.2.840.114 350.1.13.10 4.2.7.2.686 [id number] [facility] 2021-10-28 14:00:00 2021-10-28 14:49:12 Office Visit MiltonMerissa [facility] 1..840.114 350.1.13.10 4.2.7.2.686 [id number] [facility] 2021-10-28 14:00:00 2021-10-28 14:49:12 Outpatient R MERISSA ROSE [facility] [id number] [facility] 2021-10-28 14:00:00 2021-10-28 14:49:12 [facility] [id number] [facility] 2021-10-28 14:00:00 2021-10-28 14:00:00 [facility] [id number] [facility] [facility] 2021-10-28 14:00:00 2021-10-28 14:00:00 [facility] [id number] [facility] 2021-10-28 00:00:00 2021-10-28 00:00:00 Patient Secure Andrei Arias [facility] 1..840.114 350.1.13.10 4.2.7.2.686 [id number] [facility] 2021-10-28 00:00:00 2021-10-28 00:00:00 Orders Only Doctor Unassigned, [place] [facility] 1.840.114 350.1.13.10 4.2.7.2.686 [id number] [facility] 2021-10-22 11:30:00 2021-10-22 12:15:19 Office Visit Reina Gagnon [facility] 1..840.114 350.1.13.10 4.2.7.2.686 [id number] [facility] 2021-10-22 11:30:00 2021-10-22 11:30:00 Outpatient R REINA GAGNON [facility] [id number] [facility] 2021-10-22 11:30:00 2021-10-22 11:30:00 Outpatient R GAGNONREINA SCHULER [facility] [id number] [facility] 2021-10-21 11:20:00 2021-10-21 11:45:55 Outpatient R HARLEYLUIS MAURICE [facility] [id number] [facility] 2021-10-21 11:20:00 2021-10-21 11:45:55 Office Visit Luis Harley [facility]ILD[facility] 1.84.114 350.1.13.10 4.2.7.2.686 [id number] [facility] 2021-10-21 11:20:00 2021-10-21 11:20:00 Outpatient R LUIS HARLEY [facility] [id number] [facility] 2021-10-18 13:30:00 2021-10-18 14:09:41 Office Visit Hilaria Couch [facility] 1.84.114 350.1.13.10 4.2.7.2.686 [id number] [facility] 2021-10-18 13:30:00 2021-10-18 14:09:41 Outpatient R HILARIA COUCH [facility] [id number] [facility] 2021-10-18 13:30:00 2021-10-18 14:09:41 Outpatient R HILARIA COUCH [facility] [id number] [facility] 2021-10-18 13:30:00 2021-10-18 13:30:00 Outpatient R HILARIA COUCH [facility] [id number] [facility] 2021-10-18 00:00:00 2021-10-18 00:00:00 Orders Only Doctor Unassigned, [place] [facility] 1.840.114 350.1.13.10 4.2.7.2.686 [id number] [facility] 2021-10-14 13:00:20 2021-10-14 23:59:00 Outpatient R ELISE HAINES [facility] [id number] [facility] 2021-10-14 13:00:20 2021-10-14 23:59:00 Outpatient R ELISE HAINES [facility] [id number] [facility] 2021-10-14 13:00:00 2021-10-14 23:59:00 Hospital Encounter Elise Haines [facility] 1.2.840.114 350.1.13.10 4.2.7.2.686 [id number] [facility] 2021-10-14 08:52:44 2021-10-14 12:59:00 Outpatient R LUIZ TERESA [facility] RAD [id number] [facility] 2021-10-14 08:52:44 2021-10-14 12:59:00 Hospital Encounter Teresa Dee [facility] 1.2.840.114 350.1.13.10 4.2.7.2.686 [id number] [facility] 2021-10-14 07:04:00 2021-10-14 11:31:00 Hospital Encounter [facility] 1.2.840.114 350.1.13.10 4.2.7.2.686 [id number] [facility] 2021-10-14 09:00:00 2021-10-14 10:20:00 Surgery Anesthesiol [facility] 1.2.840.114 350.1.13.10 4.2.7.2.686 [id number] [facility] 2021-10-11 13:34:39 2021-10-11 15:04:39 Nurse Visit 5, [facility] Infusion Chair Luis Harley [facility] 1.2840.114 350.1.13.10 4.2.7.2.686 [id number] [facility] 2021-10-11 14:00:00 2021-10-11 14:00:00 Outpatient LUIS WHITE [facility] [id number] [facility] 2021-10-11 12:30:00 2021-10-11 12:30:00 Outpatient LUIS WHITE [facility] [id number] [facility] 2021-10-11 12:14:43 2021-10-11 12:29:43 Broom Handle Dipper Visit [facility] Luis Harley [facility] 1.2840.114 350.1.13.10 4.2.7.2.686 [id number] [facility] 2021-10-08 08:32:00 2021-10-08 09:14:00 Outpatient LUIS WHITE MAURICE [facility] RAD [id number] [facility] 2021-10-08 08:32:00 2021-10-08 09:14:00 Hospital Encounter Luis Harley 1.2.840.1 37482.1.1 3.104.2.7 .3.168120 .8 [id number] [facility] 2021-10-08 09:13:21 2021-10-08 09:13:21 Anesthesia Event Jey Freda Prince 1.2.840.1 46790.1.1 3.104.2.7 .3.581801 .8 [id number] [facility] 2021-10-08 00:00:00 2021-10-08 00:00:00 Travel 1.2.840.1 40598.1.1 3.104.2.7 .3.895891 .8 1.2.840.114 350.1.13.10 4.2.7.3.698 084.8 [id number] [facility] 2021-10-07 00:00:00 2021-10-07 00:00:00 Travel 1.2.840.1 46703.1.1 3.104.2.7 .3.049462 .8 1.2.840.114 350.1.13.10 4.2.7.3.698 084.8 [id number] [facility] 2021-10-04 00:00:00 2021-10-04 00:00:00 Case Management Luis Harley 1.2.840.1 63387.1.1 3.104.2.7 .3.775269 .8 [id number] [facility] 2021-09-30 11:00:00 2021-09-30 12:02:54 Outpatient LUIS WHITE [facility] [id number] [facility] 2021-09-30 10:50:12 2021-09-30 12:02:54 Office Visit Luis Harley [facility] 1.2.840.114 350.1.13.10 4.2.7.2.686 [id number] [facility] 2021-09-30 10:50:12 2021-09-30 12:02:54 Office Visit Luis Harley 1.2.840.1 08002.1.1 3.104.2.7 .3.716931 .8 [id number] [facility] 2021-09-30 11:00:00 2021-09-30 11:00:00 Outpatient LUIS WHITE [facility] [id number] [facility] 2021-09-30 00:00:00 2021-09-30 00:00:00 Travel 1.2.840.1 41782.1.1 3.104.2.7 .3.575952 .8 1.2.840.114 350.1.13.10 4.2.7.3.698 084.8 [id number] [facility] 2021-09-24 00:00:00 2021-09-24 00:00:00 Telephone [facility] 1.2840.114 350.1.13.10 4.2.7.2.686 [id number] [facility] 2021-09-24 00:00:00 2021-09-24 00:00:00 Telephone Mary Denton 1.2840.1 81587.1.1 3.104.2.7 .3.876751 .8 [id number] [facility] 2021-09-20 09:36:04 2021-09-20 11:06:04 Nurse Visit 5, [facility] 1.2840.114 350.1.13.10 4.2.7.2.686 [id number] [facility] 2021-09-20 09:36:04 2021-09-20 11:06:04 Nurse Visit 5, [facility] Infusion Chair Prem [facility] 1.2840.114 350.1.13.10 4.2.7.2.686 [id number] [facility] 2021-09-20 09:30:00 2021-09-20 09:30:00 Outpatient R LUIS HARLEY [facility] [id number] [facility] 2021-09-20 00:00:00 2021-09-20 00:00:00 Travel 1.2.840.1 37109.1.1 3.104.2.7 .3.944652 .8 1.2.840.114 350.1.13.10 4.2.7.3.698 084.8 [id number] [facility] 2021-09-18 11:12:35 2021-09-18 13:41:51 Broom Handle Dipper Visit Luis Harley 2, [facility] 1.2.840.1 08991.1.1 3.104.2.7 .3.134014 .8 [id number] [facility] 2021-09-18 11:12:35 2021-09-18 11:27:35 Broom Handle Dipper Visit 2, [facility] Luis Harley [facility] 1.2.840.114 350.1.13.10 4.2.7.2.686 [id number] [facility] 2021-09-18 10:30:00 2021-09-18 10:30:00 Outpatient Lavelle LUIS HARLEY [facility] [id number] [facility] 2021-09-06 12:06:20 2021-09-06 23:59:00 Hospital Encounter Luis Harley [facility] 1.2.840.114 350.1.13.10 4.2.7.2.686 [id number] [facility] 2021-09-06 12:06:20 2021-09-06 23:59:00 Hospital Encounter Luis Harley 1.2.840.1 72549.1.1 3.104.2.7 .3.696299 .8 [id number] [facility] 2021-09-06 12:05:27 2021-09-06 12:05:00 Outpatient LUIS WHITE [facility] [id number] [facility] 2021-09-06 12:05:27 2021-09-06 12:05:00 Outpatient LUIS WHITE [facility] [id number] [facility] 2021-09-06 12:00:00 2021-09-06 12:05:00 Hospital Encounter Luis Harley [facility] 1.2.840.114 350.1.13.10 4.2.7.2.686 [id number] [facility] 2021-09-06 12:00:00 2021-09-06 12:05:00 Hospital Encounter Luis Harley 1.2.840.1 83406.1.1 3.104.2.7 .3.400744 .8 [id number] [facility] 2021-09-06 10:35:49 2021-09-06 11:44:42 Office Visit Hilaria Couch [facility] 1.2.840.114 350.1.13.10 4.2.7.2.686 [id number] [facility] 2021-09-06 10:35:49 2021-09-06 11:44:42 Office Visit Hilaria Couch 1.2.840.1 00728.1.1 3.104.2.7 .3.036732 .8 [id number] [facility] 2021-09-06 10:30:00 2021-09-06 11:44:42 Outpatient R HILARIA COUCH [facility] [id number] [facility] 2021-09-06 00:00:00 2021-09-06 00:00:00 Travel 1.2.840.1 80486.1.1 3.104.2.7 .3.307636 .8 1.2.840.114 350.1.13.10 4.2.7.3.698 084.8 [id number] [facility] 2021-09-03 12:48:37 2021-09-03 23:59:00 Hospital Encounter Elise Haines [facility] 1.2.840.114 350.1.13.10 4.2.7.2.686 [id number] [facility] 2021-09-03 12:48:37 2021-09-03 23:59:00 Hospital Encounter Elise Haines 1.2.840.1 68028.1.1 3.104.2.7 .3.281105 .8 [id number] [facility] 2021-09-03 12:47:08 2021-09-03 12:47:00 Outpatient R ELISE HAINES [facility] [id number] [facility] 2021-09-03 12:45:00 2021-09-03 12:47:00 Hospital Encounter Elise Haines [facility] 1.2.840.114 350.1.13.10 4.2.7.2.686 [id number] [facility] 2021-09-03 12:45:00 2021-09-03 12:47:00 Hospital Encounter Elise Haines 1.2.840.1 98121.1.1 3.104.2.7 .3.682447 .8 [id number] [facility] 2021-09-03 00:00:00 2021-09-03 00:00:00 Outpatient R ELISE HAINES [facility] [id number] [facility] 2021-08-30 14:01:13 2021-08-30 15:31:13 Nurse Visit 4, [facility] Infusion Chair Luis Harley [facility] 1.2.840.114 350.1.13.10 4.2.7.2.686 [id number] [facility] 2021-08-30 14:01:13 2021-08-30 15:31:13 Nurse Visit Luis Harley 1.2.840.1 10268.1.1 3.104.2.7 .3.733739 .8 [id number] [facility] 2021-08-30 14:00:00 2021-08-30 14:00:00 Outpatient LUIS WHITE [facility] [id number] [facility] 2021-08-28 00:00:00 2021-08-28 00:00:00 Patient Secure Teresa MarcusELVA Chari [facility] 1.2.840.114 350.1.13.10 4.2.7.2.686 [id number] [facility] 2021-08-27 16:00:00 2021-08-27 16:00:00 Outpatient LUIS WHITE [facility] [id number] [facility] 2021-08-27 16:00:00 2021-08-27 15:44:32 Outpatient R LUIS HARLEY [facility] [id number] [facility] 2021-08-27 14:50:07 2021-08-27 15:44:32 Office Visit Luis Harley [facility] 1.2.840.114 350.1.13.10 4.2.7.2.686 [id number] [facility] 2021-08-27 14:50:07 2021-08-27 15:44:32 Office Visit Luis Harley 1.2.840.1 70626.1.1 3.104.2.7 .3.577386 .8 [id number] [facility] 2021-08-27 00:00:00 2021-08-27 00:00:00 Travel 1.2.840.1 87317.1.1 3.104.2.7 .3.048729 .8 1.2.840.114 350.1.13.10 4.2.7.3.698 084.8 [id number] [facility] 2021-08-26 10:57:15 2021-08-26 11:51:18 Broom Handle Dipper Visit Luis Harley 2, [facility] 1.2.840.1 02932.1.1 3.104.2.7 .3.148789 .8 [id number] [facility] 2021-08-26 10:57:15 2021-08-26 11:12:15 Broom Handle Dipper Visit 2, [facility] Lab Luis Harley [facility] 1.2840.114 350.1.13.10 4.2.7.2.686 [id number] [facility] 2021-08-26 11:00:00 2021-08-26 11:00:00 Outpatient R BENNIE GORE [facility] [id number] [facility] 2021-08-26 10:49:24 2021-08-26 10:49:38 Imm/Inj Visit Nurse, [facility] Pob Immunizatio n Bennie Gore [facility] 1..114 350.1.13.10 4.2.7.2.686 [id number] [facility] 2021-08-26 10:49:24 2021-08-26 10:49:38 Imm/Inj Visit Bennie Gore Nurse, [facility] Po Immunizatio n 1.2.840.1 63198.1.1 3.104.2.7 .3.369807 .8 [id number] [facility] 2021-08-26 00:00:00 2021-08-26 00:00:00 Patient Secure Msg Doctor Unassigned, [place] [facility] 1.0.114 350.1.13.10 4.2.7.2.686 [id number] [facility] 2021-08-22 12:35:00 2021-08-22 13:01:00 Emergency Edmar Wiseman [facility] 1.0.114 350.1.13.10 4.2.7.2.686 [id number] [facility] 2021-08-22 12:35:00 2021-08-22 13:01:00 Emergency Edmar Wiseman 1.2.840.1 24370.1.1 3.104.2.7 .3.422784 .8 [id number] [facility] 2021-08-22 00:00:00 2021-08-22 00:00:00 Travel 1.2.840.1 58292.1.1 3.104.2.7 .3.575195 .8 1.2.840.114 350.1.13.10 4.2.7.3.698 084.8 [id number] [facility] 2021-08-21 08:04:06 2021-08-21 08:37:54 Broom Handle Dipper Visit Elise Haines 2, [facility] 1.2.840.1 85117.1.1 3.104.2.7 .3.283415 .8 [id number] [facility] 2021-08-21 08:04:06 2021-08-21 08:19:06 Broom Handle Dipper Visit 2, [facility] 1.2.840.114 350.1.13.10 4.2.7.2.686 [id number] [facility] 2021-08-21 08:00:00 2021-08-21 08:00:00 Outpatient R ELISE HAINES [facility] [id number] [facility] 2021-08-21 00:00:00 2021-08-21 00:00:00 Telephone Elise Haines [facility] 1.2.840.114 350.1.13.10 4.2.7.2.686 [id number] [facility] 2021-08-21 00:00:00 2021-08-21 00:00:00 Travel 1.2.840.1 15814.1.1 3.104.2.7 .3.931522 .8 1.2.840.114 350.1.13.10 4.2.7.3.698 084.8 [id number] [facility] 2021-08-21 00:00:00 2021-08-21 00:00:00 Telephone Elise Haines 1.2.840.1 75330.1.1 3.104.2.7 .3.016102 .8 [id number] [facility] 2021-08-20 13:18:10 2021-08-20 14:30:22 [facility] 1.2.840.114 350.1.13.10 4.2.7.2.686 [id number] [facility] 2021-08-20 13:18:10 2021-08-20 14:30:22 Office Visit Elise Haines 1.2.840.1 91210.1.1 3.104.2.7 .3.320194 .8 [id number] [facility] 2021-08-20 13:20:00 2021-08-20 13:20:00 Outpatient R ELISE HAINES [facility] [id number] [facility] 2021-08-20 00:00:00 2021-08-20 00:00:00 Orders Only Doctor Unassigned, [place] [facility] 1.2.840.114 350.1.13.10 4.2.7.2.686 [id number] [facility] 2021-08-20 00:00:00 2021-08-20 00:00:00 Travel 1.2.840.1 64316.1.1 3.104.2.7 .3.407370 .8 1.2.840.114 350.1.13.10 4.2.7.3.698 084.8 [id number] [facility] 2021-08-20 00:00:00 2021-08-20 00:00:00 Orders Only Doctor Unassigned, [place] 1.2.840.1 18979.1.1 3.104.2.7 .3.566262 .8 [id number] [facility] 2021-08-09 08:16:23 2021-08-09 10:16:23 Nurse Visit 3, [facility] 1.2.840.114 350.1.13.10 4.2.7.2.686 [id number] [facility] 2021-08-09 08:16:23 2021-08-09 10:16:23 Nurse Visit Luis Harley 1.2.840.1 10049.1.1 3.104.2.7 .3.836044 .8 [id number] [facility] 2021-08-09 08:30:00 2021-08-09 08:30:00 Outpatient R LUIS HARLEY [facility] [id number] [facility] 2021-08-09 00:00:00 2021-08-09 00:00:00 Travel 1.2.840.1 50855.1.1 3.104.2.7 .3.326266 .8 1.2.840.114 350.1.13.10 4.2.7.3.698 084.8 [id number] [facility] 2021-08-08 09:16:46 2021-08-08 09:31:46 Broom Handle Dipper Visit Pob, [facility] Lab Main Luis Harley [facility] 1.2.840.114 350.1.13.10 4.2.7.2.686 [id number] [facility] 2021-08-08 09:16:46 2021-08-08 09:31:46 Broom Handle Dipper Visit Luis Harley, [facility] Lab Main 1.2.840.1 06312.1.1 3.104.2.7 .3.561073 .8 [id number] [facility] 2021-08-08 09:00:00 2021-08-08 09:00:00 Outpatient LUIS WHITE [facility] [id number] [facility] 2021-08-07 15:55:31 2021-08-07 16:37:08 [facility] 1.2.840.114 350.1.13.10 4.2.7.2.686 [id number] [facility] 2021-08-07 15:55:31 2021-08-07 16:37:08 Office Visit Luis Harley 1.2.840.1 89287.1.1 3.104.2.7 .3.523780 .8 [id number] [facility] 2021-08-07 16:00:00 2021-08-07 16:00:00 Outpatient LUIS WHITE [facility] [id number] [facility] 2021-07-25 10:47:31 2021-07-25 11:47:31 Ancillary Procedure Nimco Desir [facility] 1.2.840.114 350.1.13.10 4.2.7.2.686 [id number] [facility] 2021-07-25 10:47:31 2021-07-25 11:47:31 Ancillary Procedure Nimco Desir 1.2.840.1 33587.1.1 3.104.2.7 .3.994762 .8 [id number] [facility] 2021-07-25 00:00:00 2021-07-25 00:00:00 Outpatient NIMCO RAMSAY [facility] [id number] [facility] 2021-07-24 09:06:36 2021-07-24 11:30:16 Office Visit Reina Gagnon [facility] 1.2.840.114 350.1.13.10 4.2.7.2.686 [id number] [facility] 2021-07-24 09:06:36 2021-07-24 11:30:16 Office Visit Reina Gagnon 1.2.840.1 46977.1.1 3.104.2.7 .3.807975 .8 [id number] [facility] 2021-07-24 09:00:00 2021-07-24 11:30:16 Outpatient R REINA GAGNON [facility] [id number] [facility] 2021-07-24 09:00:00 2021-07-24 09:00:00 Outpatient R REINA GAGNON [facility] [id number] [facility] 2021-07-24 00:00:00 2021-07-24 00:00:00 Travel 1.2.840.1 01126.1.1 3.104.2.7 .3.075982 .8 1.2.840.114 350.1.13.10 4.2.7.3.698 084.8 [id number] [facility] 2021-07-19 14:00:00 2021-07-19 23:59:00 [facility] 1.2.840.114 350.1.13.10 4.2.7.2.686 [id number] [facility] 2021-07-19 14:00:00 2021-07-19 23:59:00 [facility] 1.2.840.114 350.1.13.10 4.2.7.2.686 [id number] [facility] 2021-07-19 14:00:00 2021-07-19 23:59:00 Hospital Encounter LuizTeresasa 1.2.840.1 67195.1.1 3.104.2.7 .3.529334 .8 [id number] [facility] 2021-07-19 08:18:09 2021-07-19 10:18:09 Nurse Visit 5, [facility] 1.2.840.114 350.1.13.10 4.2.7.2.686 [id number] [facility] 2021-07-19 08:18:09 2021-07-19 10:18:09 Nurse Visit 5, [facility] 1.2.840.114 350.1.13.10 4.2.7.2.686 [id number] [facility] 2021-07-19 08:18:09 2021-07-19 10:18:09 Nurse Visit Luis Harley 1.2.840.1 16583.1.1 3.104.2.7 .3.410447 .8 [id number] [facility] 2021-07-19 09:00:00 2021-07-19 09:00:00 Outpatient R LUIS HARLEY [facility] [id number] [facility] 2021-07-19 00:00:00 2021-07-19 00:00:00 Travel 1.2.840.1 71191.1.1 3.104.2.7 .3.816946 .8 1.2.840.114 350.1.13.10 4.2.7.3.698 084.8 [id number] [facility] 2021-07-18 13:54:37 2021-07-18 23:59:00 Hospital Encounter Luiz Teresa Edwards [facility] 1.2.840.114 350.1.13.10 4.2.7.2.686 [id number] [facility] 2021-07-18 13:54:37 2021-07-18 23:59:[address] En[address] Teresa Dee [facility] 1.2.840.114 350.1.13.10 4.2.7.2.686 [id number] [facility] 2021-07-18 13:54:37 2021-07-18 23:59:00 Hospital Encounter Teresa Dee 1.2.840.1 48681.1.1 3.104.2.7 .3.083919 .8 [id number] [facility] 2021-07-18 00:00:00 2021-07-18 00:00:00 Outpatient R TERESA DEE [facility] [id number] [facility] 2021-07-18 00:00:00 2021-07-18 00:00:00 Telephone Luis Harley [facility] 1.2.840.114 350.1.13.10 4.2.7.2.686 [id number] [id number] [facility] 2021-07-18 00:00:00 2021-07-18 00:00:00 Telephone Luis Harley [facility] 1.2.840.114 350.1.13.10 4.2.7.2.686 [id number] [id number] [facility] 2021-07-18 00:00:00 2021-07-18 00:00:00 Telephone Luis Harley 1.2.840.1 72550.1.1 3.104.2.7 .3.052523 .8 [id number] [facility] 2021-07-18 00:00:00 2021-07-18 00:00:00 Travel 1.2.840.1 42911.1.1 3.104.2.7 .3.100693 .8 1.2.840.114 350.1.13.10 4.2.7.3.698 084.8 [id number] [facility] 2021-07-17 11:17:28 2021-07-17 11:32:28 Broom Handle Dipper Visit [facility], [facility] Lab Main Luis Harley [facility] 1.2.840.114 350.1.13.10 4.2.7.2.686 [id number] [facility] 2021-07-17 11:17:28 2021-07-17 11:32:28 Broom Handle Dipper Visit [facility] Lab Main Luis Harley [facility] Building 1.2.840.114 350.1.13.10 4.2.7.2.686 [id number] [facility] 2021-07-17 11:17:28 2021-07-17 11:32:28 Broom Handle Dipper Visit Luis Harleyanibal, [facility] Lab Main 1.2.840.1 47186.1.1 3.104.2.7 .3.903617 .8 [id number] [facility] 2021-07-17 11:00:00 2021-07-17 11:00:00 Outpatient R HARLEY LUIS LUIS HARLEY [facility] [id number] [facility] 2021-07-15 09:22:40 2021-07-15 10:00:32 Office Visit Lola Harleyjaime [facility] 1.2.840.114 350.1.13.10 4.2.7.2.686 [id number] 080 [id number] [facility] 2021-07-15 09:22:40 2021-07-15 10:00:32 Office Visit Lola Harleyjaime [facility] 1.2.840.114 350.1.13.10 4.2.7.2.686 [id number] 080 [id number] [facility] 2021-07-15 09:22:40 2021-07-15 10:00:32 Office Visit Luis Harley 1.2.840.1 88064.1.1 3.104.2.7 .3.523443 .8 [id number] [facility] 2021-07-15 09:22:40 2021-07-15 10:00:32 Office Visit Luis Harley BUILDING 1.2.840.114 350.1.13.10 4.2.7.2.686 [id number] [id number] [facility] 2021-07-15 09:40:00 2021-07-15 09:40:00 Outpatient R LUIS HARLEY [facility] [id number] [facility] 2021-07-15 00:00:00 2021-07-15 00:00:00 Travel 1.2.840.1 58655.1.1 3.104.2.7 .3.473453 .8 1.2.840.114 350.1.13.10 4.2.7.3.698 084.8 [id number] [facility] 2021-07-12 00:00:00 2021-07-12 00:00:00 Telephone Luis Harley BUILDING 1.2.840.114 350.1.13.10 4.2.7.2.686 [id number] 080 [id number] [facility] 2021-07-12 00:00:00 2021-07-12 00:00:00 Telephone Luis Harley 1.2.840.1 49729.1.1 3.104.2.7 .3.401202 .8 [id number] [facility] 2021-07-12 00:00:00 2021-07-12 00:00:00 Telephone Luis Harley BUILDING 1.2.840.114 350.1.13.10 4.2.7.2.686 [id number] 080 [id number] [facility] 2021-07-12 00:00:00 2021-07-12 00:00:00 Telephone Luis Harley [facility] 1.2.840.114 350.1.13.10 4.2.7.2.686 [id number] 080 [id number] [facility] 2021-07-12 00:00:00 2021-07-12 00:00:00 Telephone Luis Harley [facility] 1.2.840.114 350.1.13.10 4.2.7.2.686 [id number] 080 [id number] [facility] 2021-07-11 08:29:20 2021-07-11 23:59:00 Hospital Encounter Andrei Cruz [facility] 1.2.840.114 350.1.13.10 4.2.7.2.686 [id number] [facility] 2021-07-11 08:29:20 2021-07-11 23:59:00 Hospital Encounter Andrei Cruz 1.2.840.1 [id number] 3.104.2.7 .[id number] [facility] 2021-07-11 08:29:20 2021-07-11 23:59:00 Hospital Encounter Andrei Cruz [facility] 1.2.840.114 350.1.13.10 4.2.7.2.686 [id number] [facility] 2021-07-11 08:28:35 2021-07-11 08:28:35 [facility] 1.2.840.114 350.1.13.10 4.2.7.2.686 [id number] [facility] 2021-07-11 08:28:35 2021-07-11 08:28:35 Hospital Encounter Andrei Cruz 1.2.840.1 [id number] 3.104.2.7 .3.391760 [id number] [facility] 2021-07-11 08:28:35 2021-07-11 08:28:35 [facility] 1.2.840.114 350.1.13.10 4.2.7.2.686 [id number] [id number] [facility] 2021-07-11 08:28:13 2021-07-11 08:28:13 [facility] 1.2.840.114 350.1.13.10 4.2.7.2.686 [id number] [id number] [facility] 2021-07-11 08:28:13 2021-07-11 08:28:13 Hospital Encounter Andrei Cruz 1.2.840.1 [id number] 3.104.2.7 .3.193810 .[id number] [facility] 2021-07-11 08:28:13 2021-07-11 08:28:13 [facility] 1.2.840.114 350.1.13.10 4.2.7.2.686 [id number] [id number] [facility] 2021-07-11 08:27:53 2021-07-11 08:27:53 [facility] 1.2.840.114 350.1.13.10 4.2.7.2.686 [id number] [facility] 2021-07-11 08:27:53 2021-07-11 08:27:53 Hospital Encounter AnthonyAndrei 1.2.840.1 [id number] 3.104.2.7 .[id number] [facility] 2021-07-11 08:27:53 2021-07-11 08:27:53 Hospital Encounter Andrei Cruz [facility] 1.840.114 350.1.13.10 4.2.7.2.686 [id number] [facility] 2021-07-11 00:00:00 2021-07-11 00:00:00 Outpatient ANDREI CRUZ [facility] [id number] [facility] 2021-07-09 14:30:00 2021-07-09 14:30:00 Outpatient REINA MYERS [facility] [id number] [facility] 2021-07-09 14:30:00 2021-07-09 14:30:00 Outpatient R REINA GAGNON [facility] [id number] [facility] 2021-07-05 09:40:00 2021-07-05 09:40:00 Outpatient ELISE LUND [facility] [id number] [facility] 2021-07-04 09:00:00 2021-07-04 09:00:00 Outpatient R TAYLER LYNN [facility] [id number] [facility] 2021-07-04 08:43:34 2021-07-04 08:58:34 Office Visit Tayler Lynn [facility] 1.0.114 350.1.13.10 4.2.7.2.686 [id number] [facility] 2021-07-04 08:43:34 2021-07-04 08:58:34 Office Visit Tayler Lynn [facility] 1.840.114 350.1.13.10 4.2.7.2.686 [id number] [facility] 2021-07-02 10:42:53 2021-07-02 23:59:00 Hospital Encounter Luis Harley [facility] 1.2.840.114 350.1.13.10 4.2.7.2.686 [id number] [facility] 2021-07-02 10:42:53 2021-07-02 23:59:00 Hospital Encounter Luis Harley [facility] 1.2840.114 350.1.13.10 4.2.7.2.686 [id number] [facility] 2021-07-02 00:00:00 2021-07-02 00:00:00 Outpatient R LUIS HARLEY [facility] [id number] [facility] 2021-06-28 08:39:10 2021-06-28 10:39:10 Nurse Visit 2, [facility] 1.0.114 350.1.13.10 4.2.7.2.686 [id number] 053 [id number] [facility] 2021-06-28 08:39:10 2021-06-28 10:39:10 Nurse Visit 2, [facility] Infusion Chair Harley [facility] 1.2840.114 350.1.13.10 4.2.7.2.686 [id number] 053 [id number] [facility] 2021-06-28 08:30:00 2021-06-28 08:30:00 Outpatient R LUIS HARLEY [facility] [id number] [facility] 2021-06-28 00:00:00 2021-06-28 00:00:00 Telephone Luis Harley [facility] 1.840.114 350.1.13.10 4.2.7.2.686 [id number] [facility] 2021-06-28 00:00:00 2021-06-28 00:00:00 Telephone Luis Harley [facility] 1.284.114 350.1.13.10 4.2.7.2.686 [id number] 080 [id number] [facility] 2021-06-27 09:37:24 2021-06-27 09:52:24 Broom Handle Dipper Visit Pob, Adc Lab Main Luis Harley [facility] 1.284.114 350.1.13.10 4.2.7.2.686 [id number] [facility] 2021-06-27 09:37:24 2021-06-27 09:52:24 Broom Handle Dipper Visit Po, Adc Lab Main Luis Harley [facility] 1.84.114 350.1.13.10 4.2.7.2.686 [id number] [facility] 2021-06-27 09:45:00 2021-06-27 09:45:00 Outpatient R LUIS HARLEY [facility] [id number] [facility] 2021-06-21 00:00:00 2021-06-21 00:00:00 Patient Secure Msg Doctor Unassigned, [place] [facility] 1..114 350.1.13.10 4.2.7.2.686 [id number] [facility] 2021-06-20 13:53:27 2021-06-20 14:08:27 Broom Handle Dipper Visit 2, Adc Lab Elise Haines [facility] 1.2.84.114 350.1.13.10 4.2.7.2.686 [id number] [facility] 2021-06-20 11:55:42 2021-06-20 13:50:44 Office Visit [facility] 1.2.840.114 350.1.13.10 4.2.7.2.686 [id number] [facility] 2021-06-20 11:50:00 2021-06-20 11:50:00 Outpatient BENNIE BENITEZ [facility] [id number] [facility] 2021-06-18 14:58:08 2021-06-18 15:18:08 [facility] Visit [facility] 1.2.840.114 350.1.13.10 4.2.7.2.686 [id number] [facility] 2021-06-18 14:58:08 2021-06-18 15:18:08 Office Visit [facility] 1.2.840.114 350.1.13.10 4.2.7.2.686 [id number] 080 [id number] [facility] 2021-06-18 14:58:08 2021-06-18 15:18:08 Office Visit HarleyLuis duran TAMIKAIMTIAZMayco [facility] 1.2.840.114 350.1.13.10 4.2.7.2.686 [id number] 080 [id number] [facility] 2021-06-18 15:00:00 2021-06-18 15:00:00 Outpatient R LUIS HARLEY [facility] [id number] [facility] 2021-06-17 12:45:10 2021-06-17 23:59:00 Hospital Encounter Luis Harley [facility] 1.2.840.114 350.1.13.10 4.2.7.2.686 [id number] [facility] 2021-06-17 00:00:00 2021-06-17 00:00:00 Outpatient R LUIS HARLEY [facility] [id number] [facility] 2021-06-11 13:24:47 2021-06-11 14:20:29 Office Visit Elise Haines [facility] 1.840.114 350.1.13.10 4.2.7.2.686 [id number] [facility] 2021-06-11 13:40:00 2021-06-11 13:40:00 Outpatient R ELISE HAINES [facility] [id number] [facility] 2021-06-11 10:54:59 2021-06-11 11:14:59 [facility] 1.84.114 350..13.10 4.2.7.2.686 [id number] [id number] [facility] 2021-06-11 11:00:00 2021-06-11 11:00:00 Outpatient R ANDREI CRUZ [facility] [id number] [facility] 2021-06-10 07:58:23 2021-06-10 08:13:23 Nurse Visit Nurse, [facility] Infusion Luis Harley [facility] 1..114 350.1.13.10 4.2.7.2.686 [id number] [facility] 2021-06-10 08:00:00 2021-06-10 08:00:00 Outpatient R LUIS HARLEY [facility] [id number] [facility] 2021-06-07 10:30:43 2021-06-07 11:30:43 Nurse Visit 4, [facility] Infusion Chair Luis Harley [facility] 1..114 350.1.13.10 4.2.7.2.686 [id number] [id number] [facility] 2021-06-07 11:00:00 2021-06-07 11:00:00 Outpatient LUIS WHITE [facility] [id number] [facility] 2021-06-06 07:59:19 2021-06-06 09:29:19 Nurse Visit 5, [facility] Infusion Chair Luis Harley [facility] 1..840.114 350.1.13.10 4.2.7.2.686 [id number] [facility] 2021-06-06 08:00:00 2021-06-06 08:00:00 Outpatient LUIS WHITE [facility] [id number] [facility] 2021-06-05 11:33:21 2021-06-05 15:03:21 Nurse Visit 4, [facility] Infusion Chair Prem Luis [facility] 1..840.114 350.1.13.10 4.2.7.2.686 [id number] 053 [id number] [facility] 2021-06-05 11:30:00 2021-06-05 11:30:00 Outpatient LUIS WHITE [facility] [id number] [facility] 2021-06-04 10:54:09 2021-06-04 11:09:09 Broom Handle Dipper Visit Pob, Adc Lab Main Luis Harley [facility] 1..840.114 350.1.13.10 4.2.7.2.686 [id number] [facility] 2021-06-04 10:30:00 2021-06-04 10:30:00 Outpatient LUIS WHITE [facility] [id number] [facility] 2021-06-04 00:00:00 2021-06-04 00:00:00 Case Management Luis HarleyG [facility] 1..840.114 350.1.13.10 4.2.7.2.686 [id number] [facility] 2021-05-30 15:10:00 2021-05-30 15:10:00 Outpatient Lavlele EBENBENNIE [facility] [id number] [facility] 2021-05-21 15:40:00 2021-05-21 15:40:00 Outpatient LUIS WHITE [facility] [id number] [facility] 2021-05-21 10:23:30 2021-05-21 11:06:03 Office Visit Harley Luis HOBBS [facility] 1..840.114 350.1.13.10 4.2.7.2.686 [id number] [id number] [facility] 2021-05-17 09:08:41 2021-05-17 11:08:41 Nurse Visit 2, [facility] Adult Infusion Nurse Luis Harley [facility] 1..840.114 350.1.13.10 4.2.7.2.686 [id number] [facility] 2021-05-17 09:30:00 2021-05-17 09:30:00 Outpatient LUIS WHITE [facility] [id number] [facility] 2021-05-16 13:53:13 2021-05-16 15:53:13 Nurse Visit 3, [facility] 1..840.114 350.1.13.10 4.2.7.2.686 [id number] 053 [id number] [facility] 2021-05-16 14:00:00 2021-05-16 14:00:00 Outpatient LUIS WHITE [facility] [id number] [facility] 2021-05-15 12:26:20 2021-05-15 15:56:20 Nurse Visit 2, [facility] 1.2840.114 350.1.13.10 4.2.7.2.686 [id number] [facility] 2021-05-15 12:26:20 2021-05-15 15:56:20 Nurse Visit 2, [facility] 1.20.114 350.1.13.10 4.2.7.2.686 [id number] 053 [id number] [facility] 2021-05-15 12:30:00 2021-05-15 12:30:00 Outpatient LUIS WHITE [facility] [id number] [facility] 2021-05-13 00:00:00 2021-05-13 00:00:00 Telephone Luis Harley [facility] 1.840.114 350.1.13.10 4.2.7.2.686 [id number] 080 [id number] [facility] 2021-05-10 13:58:50 2021-05-10 14:13:50 Broom Handle Dipper Visit Pob, Adc Lab Main Luis Harley [facility] 1.2840.114 350.1.13.10 4.2.7.2.686 [id number] [facility] 2021-05-10 13:45:00 2021-05-10 13:45:00 Outpatient LUIS WHITE [facility] [id number] [facility] 2021-05-10 00:00:00 2021-05-10 00:00:00 Case Management Luis Harley [facility] 1.20.114 350.1.13.10 4.2.7.2.686 [id number] [facility] 2021-05-10 00:00:00 2021-05-10 00:00:00 [facility] 1.2840.114 350.1.13.10 4.2.7.2.686 [id number] [facility] 2021-05-10 00:00:00 2021-05-10 00:00:00 Case Management Luis Harley [facility] 1.2840.114 350.1.13.10 4.2.7.2.686 [id number] [facility] 2021-05-07 11:45:00 2021-05-07 11:45:00 Outpatient LUIS WHITE [facility] [id number] [facility] 2021-04-24 15:00:00 2021-04-24 15:00:00 Outpatient R ILIANA MARIEE [facility] [id number] [facility] 2021-04-23 14:26:07 2021-04-23 14:46:07 Office Visit Luis Harley [facility] 1.2.840.114 350.1.13.10 4.2.7.2.686 [id number] [facility] 2021-04-23 14:30:00 2021-04-23 14:30:00 Outpatient R LUIS HARLEY [facility] [id number] [facility] 2021-04-18 14:00:00 2021-04-18 14:00:00 Outpatient ELISE LUND [facility] [id number] [facility] 2021-04-16 12:47:31 2021-04-16 23:59:00 Hospital Encounter Luis Harley [facility] 1.2.840.114 350.1.13.10 4.2.7.2.686 [id number] [facility] 2021-04-16 12:45:01 2021-04-16 12:46:00 [facility] Encounter Luis Harley [facility] 1.2.840.114 350.1.13.10 4.2.7.2.686 [id number] [facility] 2021-04-16 00:00:00 2021-04-16 00:00:00 Outpatient LUIS WHITE [facility] [id number] [facility] 2021-04-08 08:00:00 2021-04-08 08:00:00 Outpatient LUIS WHITE [facility] [id number] [facility] 2021-04-05 13:03:52 2021-04-05 14:33:52 Nurse Visit Nurse, [facility] Infusion Luis Harley [facility] 1.2.840.114 350.1.13.10 4.2.7.2.686 [id number] [id number] [facility] 2021-04-05 13:00:00 2021-04-05 13:00:00 Outpatient LUIS WHITE [facility] [id number] [facility] 2021-04-04 10:00:22 2021-04-04 11:30:22 Nurse Visit 2, [facility] Adult Infusion Nurse Luis Harley [facility] 1.2.840.114 350.1.13.10 4.2.7.2.686 [id number] [id number] [facility] 2021-04-04 10:00:00 2021-04-04 10:00:00 Outpatient LUIS WHITE [facility] [id number] [facility] 2021-04-03 09:56:53 2021-04-03 11:56:53 Nurse Visit 3, [facility] Infusion [facility] 1.2840.114 350.1.13.10 4.2.7.2.686 [id number] [facility] 2021-04-03 10:00:00 2021-04-03 10:00:00 Outpatient LUIS WHITE [facility] [id number] [facility] 2021-04-02 15:50:30 2021-04-02 16:14:04 Office Visit Luis Harley [facility] 1.284.114 350.1.13.10 4.2.7.2.686 [id number] [facility] 2021-04-02 15:40:00 2021-04-02 15:40:00 Outpatient LUIS WHITE [facility] [id number] [facility] 2021-04-02 10:22:42 2021-04-02 10:37:42 Broom Handle Dipper Visit Pob, Adc Lab Main Luis Harley [facility] 1.2.840.114 350.1.13.10 4.2.7.2.686 [id number] [facility] 2021-03-22 00:00:00 2021-03-22 00:00:00 Orders Only Doctor Unassigned, [place] [facility] 1.20.114 350.1.13.10 4.2.7.2.686 [id number] [facility] 2021-03-20 13:40:00 2021-03-20 13:40:00 Outpatient Lavelle LUIS HARLEY [facility] [id number] [facility] 2021-03-14 00:00:00 2021-03-14 00:00:00 Telephone Luis Harley [facility] 1.2.840.114 350.1.13.10 4.2.7.2.686 [id number] [facility] 2021-03-13 13:45:00 2021-03-13 13:45:00 Outpatient Lavelle HARLEY LUISJaime HARLEYLUIS [facility] [id number] [facility] 2021-03-12 00:00:00 2021-03-12 00:00:00 Outpatient Lavelle HARLEY LUIS KENT [facility] [id number] [facility] 2021-03-11 00:00:00 2021-03-11 00:00:00 Telephone Luis Harley [facility] 1..840.114 350.1.13.10 4.2.7.2.686 [id number] [facility] 2021-03-04 10:30:00 2021-03-04 10:30:00 Outpatient Lavelle HARLEY LUIS KENT [facility] [id number] [facility] 2021-02-26 11:00:00 2021-02-26 11:00:00 Outpatient Lavelle HARLEY LUIS HARLEY LUIS [facility] [id number] [facility] 2021-02-26 00:00:00 2021-02-26 00:00:00 Telephone Luis Harley [facility] 1..840.114 350.1.13.10 4.2.7.2.686 [id number] [facility] 2021-02-25 10:29:24 2021-02-25 12:29:24 Nurse Visit 2, [facility] Adult Infusion Nurse Luis Harley [facility] 1..840.114 350.1.13.10 4.2.7.2.686 [id number] [facility] 2021-02-25 10:30:00 2021-02-25 10:30:00 Outpatient Lavelle HARLEY LUIS KENT [facility] [id number] [facility] 2021-02-22 00:00:00 2021-02-22 00:00:00 Telephone Luis Harley [facility] 1.2.840.114 350.1.13.10 4.2.7.2.686 [id number] [facility] 2021-02-22 00:00:00 2021-02-22 00:00:00 Case Management Luis Harley [facility] 1.2840.114 350.1.13.10 4.2.7.2.686 [id number] [facility] 2021-02-20 15:16:55 2021-02-20 17:01:26 Office Visit Luis Harley [facility] 1.20.114 350.1.13.10 4.2.7.2.686 [id number] [id number] [facility] 2021-02-20 15:00:00 2021-02-20 15:00:00 Outpatient Lavelle HARLEY, LUIS KENT [facility] [id number] [facility] 2021-02-20 14:36:10 2021-02-20 14:51:10 Broom Handle Dipper Visit [facility]-Lab Harley Luis [facility] 1.20.114 350.1.13.10 4.2.7.2.686 [id number] [facility] 2021-02-13 15:02:45 2021-02-13 15:17:45 Broom Handle Dipper Visit 2, Adc Elise Smith [facility] [place] [facility] 1.2840.114 350.1.13.10 4.2.7.2.686 [id number] [facility] 2021-02-13 13:17:33 2021-02-13 14:59:35 Office Visit Elise Haines [facility] Eagan Alice [facility] 1..840.114 350.1.13.10 4.2.7.2.686 [id number] [facility] 2021-02-13 13:20:00 2021-02-13 13:20:00 Outpatient R ELISE HAINES [facility] [id number] [facility] 2021-02-07 14:30:00 2021-02-07 14:30:00 Outpatient LUIS WHITE [facility] [id number] [facility] 2021-02-07 14:13:23 2021-02-07 14:28:23 Nurse Visit Nurse, [facility] 1.840.114 350.1.13.10 4.2.7.2.686 [id number] [facility] 2021-02-07 09:20:00 2021-02-07 09:20:00 Outpatient R ALICE SEBASTIAN SHIWAN [facility] [id number] [facility] 2021-02-06 12:04:53 2021-02-06 13:34:53 Nurse Visit Nurse, [facility] 1..840.114 350.1.13.10 4.2.7.2.686 [id number] [facility] 2021-02-06 12:30:00 2021-02-06 12:30:00 Outpatient LUIS WHITE [facility] [id number] [facility] 2021-02-05 12:30:01 2021-02-05 14:00:01 Nurse Visit 2, [facility] Adult Infusion Nurse Prem Luis [facility] 1..840.114 350.1.13.10 4.2.7.2.686 [id number] [facility] 2021-02-05 12:30:00 2021-02-05 12:30:00 Outpatient LUIS WHITE [facility] [id number] [facility] 2021-02-05 00:00:00 2021-02-05 00:00:00 Telephone Chantel Sanches [facility] 1..114 350.1.13.10 4.2.7.2.686 [id number] [facility] 2021-02-04 11:25:24 2021-02-04 13:25:24 Nurse Visit 3, [facility] 1..114 350.1.13.10 4.2.7.2.686 [id number] [id number] [facility] 2021-02-04 11:30:00 2021-02-04 11:30:00 Outpatient LUIS WHITE [facility] [id number] [facility] 2021-02-04 00:00:00 2021-02-04 00:00:00 Case Management Jay Snow [facility] 1.114 350.1.13.10 4.2.7.2.686 [id number] [facility] 2021-02-01 13:03:52 2021-02-01 13:18:52 Broom Handle Dipper Visit [facility]Lab Luis Harley [facility] 1..114 350.1.13.10 4.2.7.2.686 [id number] [facility] 2021-02-01 09:21:47 2021-02-01 11:56:35 Office Visit Madhu Wade [facility] 1..114 350.1.13.10 4.2.7.2.686 [id number] [facility] 2021-02-01 08:45:00 2021-02-01 08:45:00 Outpatient R MADHU WADE [facility] [id number] [facility] 2021-02-01 07:34:13 2021-02-01 07:49:13 Broom Handle Dipper Visit 1, Adc Lab Prem Ulis [facility] 1.2840.114 350.1.13.10 4.2.7.2.686 [id number] [facility] 2021-02-01 00:00:00 2021-02-01 00:00:00 Case Management Luis Harley [facility] 1.2840.114 350.1.13.10 4.2.7.2.686 [id number] [facility] 2021-01-30 15:13:21 2021-01-30 16:04:18 Office Visit HarleyLuis duran [facility] 1.20.114 350.1.13.10 4.2.7.2.686 [id number] [facility] 2021-01-30 15:20:00 2021-01-30 15:20:00 Outpatient R LUIS HARLEY [facility] [id number] [facility] 2021-01-30 00:00:00 2021-01-30 00:00:00 Case Management Daniel Levin MARY JANEELVA [facility]ILD[facility] 1.20.114 350.1.13.10 4.2.7.2.686 [id number] [facility] 2021-01-29 11:38:57 2021-01-29 11:53:57 Broom Handle Dipper Visit Pob, [facility] 1.2840.114 350.1.13.10 4.2.7.2.686 [id number] [facility] 2021-01-29 11:30:00 2021-01-29 11:30:00 Outpatient R [facility] [id number] [facility] 2021-01-29 00:00:00 2021-01-29 00:00:00 Case Management OllieDaniel [facility] 1.840.114 350.1.13.10 4.2.7.2.686 [id number] [facility] 2021-01-24 13:15:00 2021-01-24 23:59:[address] En[address] Alice Sebastian [facility] 1.0.114 350.1.13.10 4.2.7.2.686 [id number] [facility] 2021-01-24 09:25:25 2021-01-24 13:14:00 Hospital Encounter [place] 1.0.114 350.1.13.10 4.2.7.2.686 [id number] [facility] 2021-01-24 10:00:00 2021-01-24 10:00:00 Outpatient LUIS HARLEY [facility] [id number] [facility] 2021-01-24 09:24:37 2021-01-24 09:24:[address] Prem Luis [facility] 1.0.114 350.1.13.10 4.2.7.2.686 [id number] [facility] 2021-01-24 09:23:49 2021-01-24 09:23:49 Hospital Encounter [place] 1.840.114 350.1.13.10 4.2.7.2.686 [id number] [facility] 2021-01-24 09:23:49 2021-01-24 09:23:49 Outpatient R LUIS HARLEY [facility] [id number] [facility] 2021-01-24 09:20:00 2021-01-24 09:22:00 [facility].114 350.1.13.10 4.2.7.2.686 [id number] [facility] 2021-01-23 12:54:40 2021-01-23 13:45:56 Office Visit Reina Gagnon [facility] 1.840.114 350.1.13.10 4.2.7.2.686 [id number] [facility] 2021-01-23 13:00:00 2021-01-23 13:00:00 Outpatient R REINA GAGNON [facility] [id number] [facility] 2021-01-22 08:27:00 2021-01-22 23:59:00 Hospital Encounter Nimco Desir [facility] 1.840.114 350.1.13.10 4.2.7.2.686 [id number] [facility] 2021-01-22 00:00:00 2021-01-22 00:00:00 Outpatient R NIMCO DESIR [facility] [id number] [facility] 2021-01-18 09:24:57 2021-01-18 23:59:00 Hospital Encounter Alice Sebastian [facility] 1.840.114 350.1.13.10 4.2.7.2.686 [id number] [facility] 2021-01-18 00:00:00 2021-01-18 00:00:00 Outpatient R ALICE SEBASTIAN SHIWAN [facility] [id number] [facility] 2021-01-16 13:00:10 2021-01-16 13:55:48 Office Visit Prem Luis [facility] 1.2.840.114 350.1.13.10 4.2.7.2.686 [id number] [facility] 2021-01-16 13:00:00 2021-01-16 13:00:00 Outpatient R LUIS HARLEY MAURICE [facility] [id number] [facility] 2021-01-14 12:48:41 2021-01-14 13:03:41 Laboratory Only Only, Adc Test Harley Luis [facility] 1.2.840.114 350.1.13.10 4.2.7.2.686 [id number] [facility] 2021-01-14 12:00:00 2021-01-14 12:00:00 Outpatient R [facility] [id number] [facility] 2021-01-11 00:00:00 2021-01-11 00:00:00 Telephone Alice [facility] 1.2.840.114 350.1.13.10 4.2.7.2.686 [id number] [facility] 2021-01-09 09:41:00 2021-01-09 16:02:00 Hospital Encounter Sebastian Jericat[facility] 1.2.840.114 350.1.13.10 4.2.7.2.686 [id number] [facility] 2021-01-08 15:30:00 2021-01-08 15:30:00 Outpatient R [facility] [id number] [facility] 2021-01-08 15:08:29 2021-01-08 15:23:29 Laboratory Only Only, Adc Test Acosta Swartz [facility] 1.2.840.114 350.1.13.10 4.2.7.2.686 [id number] [facility] 2021-01-07 00:00:00 2021-01-07 00:00:[address] [facility] 1.2.840.114 350.1.13.10 4.2.7.2.686 [id number] [facility] 2021-01-04 00:00:00 2021-01-04 00:00:00 Telephone Jonelle Sebastianndtammy [facility] Building 1.2.840.114 350.1.13.10 4.2.7.2.686 [id number] [facility] 2021-01-03 15:24:19 2021-01-03 15:54:19 Office Visit Alice Sebastian [facility] 1.2840.114 350.1.13.10 4.2.7.2.686 [id number] [facility] 2021-01-03 15:30:00 2021-01-03 15:30:00 [facility] [id number] [facility] 2020-12-24 00:00:00 2020-12-24 00:00:00 Elise Kat [facility] Building 1.2.840.114 350.1.13.10 4.2.7.2.686 [id number] [facility] 2020-12-07 00:00:00 2020-12-07 00:00:00 Patient Outreach Nelia Dee [facility] Building 1.2.840.114 350.1.13.10 4.2.7.2.686 [id number] [facility] 2020-11-28 00:00:00 2020-11-28 00:00:00 Patient Outreach Nelia Dee [facility] Office Building One 1.2.840.114 350.1.13.10 4.2.7.2.686 [id number] [facility] 2020-11-27 08:19:21 2020-11-27 14:06:49 [facility] 1.2840.114 350.1.13.10 4.2.7.2.686 [id number] [facility] 2020-11-27 09:20:00 2020-11-27 09:20:00 Outpatient R YANCY [facility] [id number] [facility] 2020-11-15 08:57:57 2020-11-15 23:59:00 Hospital Encounter [facility] 1.2.840.114 350.1.13.10 4.2.7.2.686 [id number] [facility] 2020-11-15 08:57:23 2020-11-15 23:59:00 Hospital Encounter [facility] 1.2.840.114 350.1.13.10 4.2.7.2.686 [id number] [facility] 2020-11-15 09:00:00 2020-11-15 09:00:00 Outpatient R YANCY [facility] [id number] [facility] 2020-11-14 15:25:23 2020-11-14 16:15:46 Office Visit Fahadguille [facility] Building 1.2.840.114 350.1.13.10 4.2.7.2.686 [id number] [facility] 2020-11-14 15:20:00 2020-11-14 15:20:00 Outpatient R FAHADSUSIWARDTELLYELISE [facility] [id number] [facility] 2020-11-14 00:00:00 2020-11-14 00:00:00 Orders Only Doctor Unassigned, [place] [facility] 1.2840.114 350.1.13.10 4.2.7.2.686 [id number] [facility] 2020-11-07 09:23:00 2020-11-07 14:10:00 Emergency Sean Mcgill [facility] 1.20.114 350.1.13.10 4.2.7.2.686 [id number] [facility] 2020-11-07 09:23:00 2020-11-07 14:10:00 Emergency X SEAN MCGILL [facility] [id number] [facility] 2020-11-07 08:16:05 2020-11-07 09:12:03 Urgent Care Provider, [facility] Arpita Gonzalez [facility] Building One 1..114 350.1.13.10 4.2.7.2.686 [id number] [facility] 2020-11-07 08:20:00 2020-11-07 08:20:00 Outpatient R [facility] [id number] [facility] 2020-11-07 00:00:00 2020-11-07 00:00:00 Letter (Out) Doctor Unassigned, [place] [facility] 1.2.114 350.1.13.10 4.2.7.2.686 [id number] [facility] 2020-11-07 00:00:00 2020-11-07 00:00:00 Orders Only Doctor Unassigned, [place] [facility] 1.20.114 350.1.13.10 4.2.7.2.686 [id number] [facility] 2020-11-06 00:00:00 2020-11-06 00:00:00 Telephone [facility] 1.2.840.114 350.1.13.10 4.2.7.2.686 [id number] [facility] 2020-11-05 00:00:00 2020-11-05 00:00:00 Telephone [facility] 1.2.840.114 350.1.13.10 4.2.7.2.686 [id number] [facility] 2020-11-01 07:51:54 2020-11-01 08:14:30 Office Visit Guilherme Chasity [facility] 1.2840.114 350.1.13.10 4.2.7.2.686 [id number] [facility] 2020-11-01 08:00:00 2020-11-01 08:00:00 Outpatient R CHASITY VANEGAS [facility] [id number] [facility] 2020-10-30 14:46:03 2020-10-30 23:59:00 Hospital Encounter Elise Haines [facility] 1.284.114 350.1.13.10 4.2.7.2.686 [id number] [facility] 2020-10-30 00:00:00 2020-10-30 00:00:00 Outpatient R ELISE HAINES [facility] [id number] [facility] 2020-10-30 00:00:00 2020-10-30 00:00:00 Orders Only Doctor Unassigned, [place] [facility] 1.2840.114 350.1.13.10 4.2.7.2.686 [id number] [facility] 2020-10-16 15:42:21 2020-10-16 16:55:58 Office Visit Chasity Vanegas, Adc Surg Spec Procedure [facility] 1.2840.114 350.1.13.10 4.2.7.2.686 [id number] [facility] 2020-10-16 15:45:00 2020-10-16 15:45:00 Outpatient R CHASITY VANEGAS [facility] [id number] [facility] 2020-10-16 00:00:00 2020-10-16 00:00:00 Orders Only Doctor Unassigned, [place] [facility] 1.2840.114 350.1.13.10 4.2.7.2.686 [id number] [facility] 2020-10-12 00:00:00 2020-10-12 00:00:00 Elise Kat [facility] 1.2840.114 350.1.13.10 4.2.7.2.686 [id number] [facility] 2020-10-01 10:08:52 2020-10-01 11:07:34 Office Visit Chasity Vanegas [facility] 1.20.114 350.1.13.10 4.2.7.2.686 [id number] [facility] 2020-10-01 10:15:00 2020-10-01 10:15:00 Outpatient R CHASITY VANEGAS [facility] [id number] [facility] 2020-09-14 06:46:00 2020-09-14 11:07:00 Hospital Encounter Chasity Vanegas [facility] 1.20.114 350.1.13.10 4.2.7.2.686 [id number] [facility] 2020-09-13 09:03:33 2020-09-13 09:18:33 Laboratory Only Only, Adc Test Chasity Vanegas [facility] 1.2.840.114 350.1.13.10 4.2.7.2.686 [id number] [facility] 2020-09-13 09:00:00 2020-09-13 09:00:00 Outpatient R CHASITY VANEGAS [facility] [id number] [facility] 2020-09-13 00:00:00 2020-09-13 00:00:00 Orders Only Doctor Unassigned, [place] [facility] 1.2.840.114 350.1.13.10 4.2.7.2.686 [id number] [facility] 2020-08-23 00:00:00 2020-08-23 00:00:00 Telephone [facility] 1.2.840.114 350.1.13.10 4.2.7.2.686 [id number] [facility] 2020-08-17 00:00:00 2020-08-17 00:00:00 Telephone [facility]illeElise [facility] 1.2.840.114 350.1.13.10 4.2.7.2.686 [id number] [facility] 2020-08-16 10:07:35 2020-08-16 11:09:10 Office Visit [facility]asity [facility] 1.2.840.114 350.1.13.10 4.2.7.2.686 [id number] [facility] 2020-08-16 10:30:00 2020-08-16 10:30:00 Outpatient R CHASITY VANEGAS [facility] [id number] [facility] 2020-08-15 14:35:59 2020-08-15 15:46:44 Office Visit Elise Haines [facility] 1.2.840.114 350.1.13.10 4.2.7.2.686 [id number] [facility] 2020-08-15 14:40:00 2020-08-15 14:40:00 Outpatient R ELISE HAINES [facility] [id number] [facility] 2020-08-08 09:44:07 2020-08-08 23:59:00 Outpatient R ELISE HAINES [facility] [id number] [facility] 2020-08-08 09:40:00 2020-08-08 23:59:00 Hospital Encounter Elise Haines [facility] 1.2.840.114 350.1.13.10 4.2.7.2.686 [id number] [facility] 2020-08-08 00:00:00 2020-08-08 00:00:00 Outpatient R ELISE HAINES [facility] [id number] [facility] 2020-08-03 14:37:52 2020-08-03 14:57:52 Office Visit Elise Haines [facility] 1.2.840.114 350.1.13.10 4.2.7.2.686 [id number] [facility] 2020-08-03 14:40:00 2020-08-03 14:40:00 Outpatient R ELISE HAINES [facility] [id number] [facility] 2020-07-19 15:17:05 2020-07-19 16:26:02 Office Visit Elise Haines [facility] 1.2.840.114 350.1.13.10 4.2.7.2.686 [id number] [facility] 2020-07-19 09:40:00 2020-07-19 09:40:00 Outpatient R EDSUSIWARDTELLY ELSIE [facility] [id number] [facility] 2020-07-19 00:00:00 2020-07-19 00:00:00 Orders Only Doctor Unassigned, [place] [facility] 1.2.840.114 350.1.13.10 4.2.7.2.686 [id number] [facility] 2020-05-16 00:00:00 2020-05-16 00:00:00 Refill Elise Haines [facility] 1.2.840.114 350.1.13.10 4.2.7.2.686 [id number] [facility] 2020-05-16 00:00:00 2020-05-16 00:00:00 Refill Mary Denton [facility] Building 1.2.840.114 350.1.13.10 4.2.7.2.686 [id number] [facility] 2020-04-19 10:32:04 2020-04-19 11:34:09 Office Visit [facility] 1.2.840.114 350.1.13.10 4.2.7.2.686 [id number] [facility] 2020-04-19 10:20:00 2020-04-19 10:20:00 Outpatient ELISE LUND [facility] [id number] [facility] 2020-01-20 12:54:06 2020-01-20 15:11:12 Telemedici ne Visit Mary Denton [facility] Building 1.2.840.114 350.1.13.10 4.2.7.2.686 [id number] [facility] 2020-01-20 14:35:00 2020-01-20 14:35:00 Outpatient R JERZY DENTONBETH [facility] [id number] [facility] 2019-07-12 08:38:01 2019-07-12 09:36:47 Office Visit Seven Mcnally [facility] 1.2.840.114 350.1.13.10 4.2.7.2.686 [id number] [facility] 2019-07-07 13:40:02 2019-07-07 14:13:39 Office Visit Seven Mcnally [facility] 1.2.840.114 350.1.13.10 4.2.7.2.686 [id number] [facility] 2019-07-07 00:00:00 2019-07-07 00:00:00 Letter (Out) Seven Mcnally [facility] Office Building One 1.2.840.114 350.1.13.10 4.2.7.2.686 [id number] [facility] 2019-05-27 00:00:00 2019-05-27 00:00:00 Telephone VanegasChasity [facility] 1.2.840.114 350.1.13.10 4.2.7.2.686 [id number] [facility] Results Test Description Test Time Test Comments Results Result Co mments Source [id number] 13:33:00* Test Item Value Reference Range Interpretation Comme nts SURGICAL (test code = SR) R UN DATE: 12/08/22 [facility] PAGE 1 RUN TIME: 1333 Specimen Inquiry RUN USER: INTERFACE P ATIENT: JOY YOUNG [facility] #: [id number] LOC: RUPESH #: [id number] AGE/SX: 62/F ROOM: RUPESH RE12/04/22REG DR: Sheree Medeiros MD : 60 BED: 1 DIS: 12/05/22 STATUS: DIS Gilbert TLOC: SPEC #: [id number] RECD: 12/05/22 STATUS: AUDREY REGavin #: [id number] KADE: 12/04/22-[address]: Sheree Medeiros MD ENTERED: 12/05/22 SP TYPE: SURGICAL OTHR DR: ORDERED: 50314, 34384, ANATOMIC SPEC, SPECIMEN TRACK PROCEDURES: 59584 (12/05/22-520) 96201 (12/08/22-1331) SPECIMEN TRACK (12/05/22) TISSUES: A. HERNIA SAC ANY LOCATION B. UTERUS - UTERUS, CERVIX, BILATERAL FALLOPIAN TUBES FINAL DIAGNOSIS A. ABDOMINAL WALL, HERNIORRHAPHY: - Benign fibroadipose tissue, consistent with hernia sac. B. 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 - Negative ectocervical margin. - Inactive endometrium. - No myometrial lesion. - Serosa without pathologic alteration. - Unremarkable bilateral ovaries and fallopian tubes. - Specimen 43.6 g. - See comment. Comment: Cervix is entirely submitted for microscopic evaluation. There is focalhigh-grade squamous intraepithelial lesion (MARTINA 3), focally involving endocervical glands. No ectocervical margin involvement is seen. Squamous epithelium has parakeratosis andfocal acute inflammation. No invasive carcinoma is seen. GROSS DESCRIPTION A. Hernia sac. Received are two segments adipose tissue measuring 1.7 x 1.3 x 1.2 cm and3.3 x 2 x 0.6 cm. The smaller segment is inked blue, they are serially sectioned to revealgrossly fatty consistency. They are entirely submitted as A1-A3. B. Uterus with bilateral fallopian tubes and ovaries. Received is a uterus with attachedright and left ovaries and fallopian tubes. The uterus weighs 43.6 g and measures cornu tocornu 4.2 cm, posterior to anterior 3 cm and fundus to cervix 7.5 cm. The cervix measures3.3 x 2.5 cm. The uterus is bivalved to reveal a pink smooth cervical canal of 1.8 cm inlength. The endometrial cavity measures 2.1 x 1.2 cm and covered by endometrium of lessthan 0.2 cm in thickness. The uterine wall has a maximum thickness of 1.8 cm. Sectioningthrough the uterine wall reveals no lesions. The serosal surface is smooth. The right CONTINUED ON NEXT PAGE R UN DATE: 12/08/22 [facility] PAGE 2 RUN TIME: 1333 Specimen Inquiry RUN USER: INTERFACE S [facility] #: 23:[facility]:SR93 PATIENT: JOY YOUNG #[id number] (Continued) GROSS DESCRIPTION (Continued) ovary measures 2.8 x 2.2 x 1.2 cm. Cut sections reveal grossly unremarkable ovarianparenchyma. The right fallopian tube without fimbriated end, possible ligament measures3.5 cm in length and has a diameter of 0.2 cm. The left ovary measures 2.3 x 1.8 x 1 cm.Cut sections reveal grossly unremarkable ovarian parenchyma. The left fallopian tube is ashort segment with fimbriated end measuring 1.5 cm in length and a diameter of 0.5 cm. B1-B4 cervix 12-3 o'clockB5-B8 cervix 3-6 o'clock B9-B11 cervix 6-9 o'qrofgC95-X88 cervix 9-12 o'zaiaxQ18 posterior lower uterine fmnwccgQ83 posterior ytkqajiwjorijjI04 anterior lower uterine sjsrfesK85 anterior zdkpggyixujfkbZ51 posterior fhmelzxnzdI60 right wufbxnxjuseL04 left ujrjowvdmeyW56-G58 right ovary serially sectioned entirely unesdcpnoC88 right attached tubular structure possible qvpwgcbjJ95-C27 left ovary serially sectioned entirely psxpzdfomL53 left fallopian tube cut surface with entire bisected fimbriated end Technical tissue processing and slide preparation performed at [employer],[place] [address] , [place] [address] Immunohistochemistry: This test was developed and its performance characteristicsdetermined by this laboratory. It has not been approved nor does it need approval by the USFDA. Appropriate positive and negative controls are reviewed and judged to be acceptable.This laboratory is certified under the Clinical Laboratory Improvement Amendments (CLIA-88)as qualified to perform high complexity clinical laboratory testing. MICROSCOPIC DESCRIPTION A and B. Microscopic examination is performed and the findings are incorporated into thefinal diagnosis. Please see diagnosis for findings. -------- Signed SIGNATURE ON FILE Marybel Perez 12/08/22 1333 END OF REPORT GLUCOSE BEDSIDE [id number] 11:41:00* Test Item Value Reference Range Interpretation Comme [facility] GLUCOSE BEDSIDE TESTING (gurinder t code = GLUBED) 111 mg/dL 70-110 H GLUCOSE BEDSIDE [id number] 07:34:00* Test Item Value Reference Range Interpretation Comme [facility] GLUCOSE BEDSIDE TESTING (gurinder t code = GLUBED) 103 mg/dL 70-110 N [id number] 05:01:00* Test Item Value Reference Range Interpretation Comme nts CREATININE (test code = CREAT) 0.5 MG/DL 0.6-1.0 L Comment: Stat creatinine if not already performedGLUCOSE BEDSIDE TESTING 2022-12-04 16:22:00* Test Item Value Reference Range Interpretation Comme nts GLUCOSE BEDSIDE TESTING (gurinder t code = GLUBED) 136 mg/dL 70-110 H GLUCOSE BEDSIDE [id number] 14:37:00* Test Item Value Reference Range Interpretation Comme nts GLUCOSE BEDSIDE TESTING (gurinder t code = GLUBED) 142 mg/dL 70-110 H - XR CHEST 1 [id number] 08:01:00 [facility] : 1960 Sex: F Name:JOY YOUNG [place] : 1960 Age/S: 62 / F [address] Unit #: [id number] Loc:[place] [address] Phys: Michele Gerardo MD Acct: [id number] Dis Date: Status: REG [facility] PHONE #: [phone] Exam Date: 12/04/2022755 FAX #: Reason: PRE SURGERY HX LUNG CA EXAMS: CPT: [id number] XR CHEST 1 V 96419 Fluoro Time: DAP (Gy m2): Air Kerma (mGy): - XR CHEST 1 V INDICATION:Preop, history lung carcinoma LOCATION: T18 The lungs are clear. The cardiomediastinal silhouette is within normal limits. The bony thorax is unremarkable. IMPRESSION: No active disease. at 0801 Reported and signed by: Chadwick Gilbert M.D. CC:Sheree Medeiros MD; iMchele Gerardo MD PAGE 1 Signed Report Name: JOY YOUNG [place] : 1960 Age/S: 62 / F [address] Unit #: [id number] Loc: [place] [address] Phys: Michele Gerardo MD Acct: [id number] Dis Date: Status: REG [facility] PHONE #: [phone] Exam Date: 12/04/20229 FAX #: Reason: PRE SURGERY HX LUNG CA EXAMS: CPT: [id number] XR CHEST 1 V [id number] Fluoro Time: DAP (Gy m2): Air Kerma (mGy): (Continued) Technologist: Rafal Bergeron, RT,(R),(CT) Trnscb Date/Time: 12/04/2022 (800) Jonathan Orig Print D/T: S: 12/04/2022 (803) PAGE 2 Signed ReportBASIC METABOLIC [id number] 15:27:00 * Test Item Value Reference Range Interpretation Comme nts SODIUM (test code = NA) 140 mmol/L 134-147 N POTASSIUM (test code = K) 3.9 mmol/L 3.4-5.0 N CHLORIDE (test code = CL) 107 mmol/L 100-108 N CARBON DIOXIDE (test code = CO2) 27 mmol/L 21-32 N ANION GAP (test code = GAP) 6.0 GAP calc 4.0-15.0 N GLUCOSE (test code = GLU) 106 MG/DL 70-110 N BLOOD UREA NITROGEN (test code = BUN) 11 MG/DL 7-18 N GLOMERULAR FILTRATION RATE (test code = GFR) >=60 max estimate estGFR >60 The Glomerular Filtration Rate is a calculated parameterbased on serum Creatinine, patient age and sex. GFR valuesless than 60 mL/min/1.73 square meters are indicative ofChronic Kidney Disease. Values less than 15 mL/min/1.73square meters indicate Kidney failure. The calculation forGFR is based on the CKD-EPI (2020) calculation. This formulais race indifferent and is the recommended formula for GFRby the National Kidney Foundation for Adults.The GFR will not calculate if the sex is unknown or if thepatient's age is <18 years. CREATININE (test code = CREAT) 0.6 MG/DL 0.6-1.0 N CALCIUM (test code = CA) 9.2 MG/DL 8.5-10.1 N COVID 19 INHOUSE [id number] 15:27:00* Test Item Value Reference Range Interpretation Comme nts COVID 19 INHOUSE AG (test code = [id number]) NEGATIVE Negative Per eligibility specialist , negative results should be treated aspresumptive and, if inconsistent with clinical signs andsymptoms or necessary for patient management, should betested with an alternative molecular assay. Negative resultsdo not preclude SARS-CoV-2 infection and should not be usedas the sole basis for patient management decisions. Negative results should be considered in the context of apatient's recent exposures, history, presence of clinicalsigns and symptoms consistent with COVID-19. THROMBOPLASTIN TIME [id number] 15:24:00* Test Item Value Reference Range Interpretation Comme nts THROMBOPLASTIN TIME PARTIAL (test code = PTT) 31.0 SECONDS 26-35 N PROTHROMBIN [id number] 15:24:00* Test Item Value Reference Range Interpretation Comme nts PT PATIENT (test code = PTP) 12.0 SECONDS 9.3-12.9 N INTERNATIONAL NORMAL RATIO (test code = INR) 1.08 INR Unit 0.8-1.2 N TARGET INR BY INDICATION Indication INR1. Prophylaxis of venous thrombosis 2.0 - 3.0 (orthopedic surgery), Prophylaxis of venous thrombosis (other than high-risk surgery), Treatment of Deep Vein Thrombosis/Pulmonary Embolism, Prevention of systemic embolism - Tissue heart valves, Acute Myocardial Infarction (to prevent systemic embolism), Valvular heart disease, Acute Myocardial Infarction (to prevent systemic embolism), Valvular heart disease, Atrial Fibrillation, Bileaflet mechanical valve in aortic position.2. Mechanical prosthetic valves (high risk), 2.5 - 3.5 Presence of Lupus Anticoagulant or Antiphospholipid Antibodies, Prevention of systemic embolism - Acute Myocardial Infarction (to prevent recurrent infarct). CBC W/AUTO [id number] 15:17:00* Test Item Value Reference Range Interpretation Comme nts WHITE BLOOD CELL (test code = WBC) 4.7 K/mm3 3.5-11.0 N RED BLOOD CELL (test code = RBC) 4.67 M/mm3 4.70-6.10 L HEMOGLOBIN (test code = HGB) 14.1 G/DL 10.4-14.9 N HEMATOCRIT (test code = HCT) 42.0 % 31.5-44.1 N MEAN CELL VOLUME (test code = MCV) 89.9 Fl 84.5-98.6 N MEAN CELL HGB (test code = MCH) 30.2 pg 27.0-34.2 N MEAN CELL HGB CONCETRATION (test code = MCHC) 33.6 G/DL 31.5-34.0 N RED CELL DISTRIBUTION WIDTH (test code = RDW) 13.0 SD 11.5-14.5 N PLATELET COUNT (test code = PLT) 176 K/mm3 150-450 N MEAN PLATELET VOLUME (test c ode = MPV) 10.60 fL 7.0-10.5 H NEUTROPHIL % (test code = NT%) 58.1 % 40-76 N IMMATURE GRANULOCYTE % (test code = IG%) 0.2 % 0.0-5.0 N LYMPHOCYTE % (test code = LY%) 32.2 % 20.5-51.1 N MONOCYTE % (test code = MO%) 7.0 % 1.7-9.3 N EOSINOPHIL % (test code = EO%) 1.9 % 0.0-6.0 N BASOPHIL % (test code = BA%) 0.6 % 0.0-2.0 N NUCLEATED RBC % (test code = NRBC%) 0.0 /100WBC% 0.0-1.0 N NEUTROPHIL # (test code = NT#) 2.7 K/mm3 1.8-7.6 N IMMATURE GRANULOCYTE # (test code = IG#) 0.01 x10 3/uL 0.00-0.03 N LYMPHOCYTE # (test code = LY#) 1.5 K/mm3 0.6-3.2 N MONOCYTE # (test code = MO#) 0.3 K/mm3 0.3-1.1 N EOSINOPHIL # (test code = EO#) 0.1 K/mm3 0.0-0.4 N BASOPHIL # (test code = BA#) 0.0 K/mm3 0.0-0.1 N NUCLEATED RBC # (test code = NRBC#) 0.0 K/mm3 0.0-0.1 N MANUAL DIFF REQUIRED (test c ode = MDIFF) NO DIFF/SCN CRITERIA POCT URINALYSIS W/O SPECIFIC [id number] 20:16:00* Test Item Value Reference Range Interpretation Comme nts POCT PH U (test code = 3254) 6 mg/dl 5-8 POCT U LEUK EST (test code = 3263) Negative Negative - Negative POCT U NIT (test code = 3262) Negative Negative - Negati ve POCT U PROT (test code = 3259) Negative Negative - Negat anahi POCT U GLU (test code = 3256) Normal Negative - Negati ve POCT U KETONE (test code = 3258) Negative Negative - Neg ative POCT U BLD (test code = 3257) Negative Negative - Negati ve [facility] B[facility] DENSITY AXIAL SKELEDEXA, BONE DENSITY AXIAL VYRDC2S SCR RAYMUNDO BILAT W/CAD3D SCR RAYMUNDO BILAT W/CAD3D SCR RAYMUNDO BILAT W/CAD3D SCR RAYMUNDO BILAT W/CAD Notes Date/Time Note Provider Source 2022-12-04 20:02:00 [id number] [facility] [id number] [place] [id number] PATIENT NAME: JOY YOUNG ADMIT DATE: 12/04/22 ACCOUNT NO: [id number] ROOM NO: L.PO5 AGE: 63 REPORT TYPE: OPERATIVE REPORT SEX: F ADMITTING PHYSICIAN: Sheree Medeiros MD ATTENDING PHYSICIAN: Sheree Medeiros MD OPERATION DATE: 12/04/2022 PREOPERATIVE DIAGNOSES: 1. MARTINA 3 in the endocervical canal with history of LEEP for MARTINA 3 in 2017, which is essentially recurrent severe cervical dysplasia. 2. Stage III symptomatic uterovaginal prolapse and stress urinary incontinence. POSTOPERATIVE DIAGNOSES: 1. MARTINA 3 in the endocervical canal with history of LEEP for MARTINA 3 in 2017, which is essentially recurrent severe cervical dysplasia. 2. Stage III symptomatic uterovaginal prolapse and stress urinary incontinence. 3. Posterior wall defect, incarcerated umbilical ventral wall hernia, small and ascending colon adhesions as well as omental adhesions, incarcerated right inguinal hernia. PROCEDURE PERFORMED: 1. Robotic-assisted total laparoscopic hysterectomy, bilateral salpingo-oophorectomy. 2. Umbilical and ventral hernia repairs with sutures. 3. Lysis of bowel adhesions and omental adhesions and lysis of the contents of the incarcerated right inguinal hernia, which took at least 40 minutes of the case. 4. Uterosacral ligament suspension colpopexy, (2 sutures on each side) and culdoplasty. 5. Vaginal posterior wall and enterocele repairs and perineorrhaphy. 6. Urethral bulking with Bulkamid and cystoscopy. SURGEON: Sheree Medeiros MD ASSISTANTS: Divine Jay and Nadira. ANESTHESIA: General. FINDINGS: POP-Q 0, +3,+1, 6, moderate 8, 0, 0, and -1. Incarcerated ventral hernia slightly above the umbilicus, getting pretty close to the umbilical dimple. This had omentum alone, which was dissected and the hernia sac was handed out as permanent specimen and this was repaired with 0 PDS sutures x3. Right inguinal hernia was incarcerated and had to be reduced before I could proceed with a hysterectomy and therefore contents were packed out through the PATIENT NAME: JOY YOUNG right internal inguinal ring and cauterized and reduced. Then, on the left side, there was a history of a left inguinal hernia repair, which by patient history, she also had bladder incarcerated in the hernia, which had to be released and there was an incidental cystotomy at that time, which was repaired. Most likely an omental flap was interposed during the repair, which is what I had encountered and this had to be taken down in order for me to proceed with my hysterectomy. On cystoscopy, there was a corresponding bladder scar noted on the dome of the bladder towards the left side, which was intact. Uterosacral suspension was performed with 2 sutures on each side with 2-0 PDS with an excellent lift to the cuff. The cuff was closed in 2 layers with 2-0 V-Loc. Then, a culdoplasty was performed with 2-0 PDS as well from right uterosacral to the posterior wall of the cuff and to the left uterosacral and then suture tied down. Very good apical suspension at the end of the procedure. Cystoscopy with patent ureters. Urethral bulking was performed with a pediatric cystoscope and 1.3 mL was injected. Note to us and the postop, referred to General Surgery for a right indirect inguinal hernia repair after the patient has recovered from this. COMPLICATIONS: No complications. DRAINS: Oneal catheter. SPECIMENS: Hernia sac, uterus, tubes, ovaries and cervix, intact with the uterus. IMPLANTS: Bulkamid. FLUIDS: 2200 LR. URINE OUTPUT: 800: ESTIMATED BLOOD LOSS: 100 mL. APPROACH: Laparoscopic, robotic and vaginal. PATIENT'S CONDITION: Stable. INDICATIONS FOR PROCEDURE: The patient is a 62-year-old female who presented with significant symptomatic uterovaginal prolapse. After being examined in the office, she had a pelvic exam and a Pap smear given her history of severe cervical dysplasia. On the Pap smear, she had dysplastic cells suspicious for high-grade in the endocervical canal, nothing on the cervix. So, we discussed about all the different options of management including a LEEP or a cold knife cone preferably versus hysterectomy. Understands that there is a small chance of invasive cancer that is undetected at this preoperative time, but could be diagnosed on permanent pathology, which could warrant further referral and then treatment. The patient understood this and wanted to proceed with a hysterectomy. She also had symptomatic prolapse and we discussed about all the different options of repairing with a sacral colpopexy if uterosacral suspension could not be performed using a mesh graft could decrease her recurrence and she is a good PATIENT NAME: JOY YOUNG candidate for it. However, given the chance that there could be cervical dysplasia, which could warrant at the worst case scenario if there was invasive cancer, radiation therapy, did not want to compromise her cancer outcome by placing the synthetic graft. So after discussing the pros and cons of this, the patient was consented for laparoscopic or vaginal [place] tissue repair. She has history of metastatic small cell lung cancer, which is completely in remission at this time with her immunotherapy and the patient's oncologist, Dr. Bernal had been contacted and after clearance, understanding that she could heal very well while she is on immunotherapy. No contraindications to her surgery during both the hysterectomy and the prolapse repair together. She was consented and brought to the hospital. PROCEDURE IN DETAIL: Two grams of Ancef were given preoperatively. We discussed all the things again, all the above-mentioned diagnoses and treatment options again. She was consented and taken back to the OR. She was placed in a supine fashion on the operating table. General anesthesia was given. She was placed in the dorsal lithotomy position using Shaun stirrups. Abdomen, vulva, vagina, and perineum prepped and draped in a sterile fashion. Oneal was placed to drain the bladder. Speculum was not needed actually. POP-Q was done while she was examined under anesthesia. Anterior lip grasped with 2 Allis clamps and retroflexed uterus, uterine manipulator with a large cup were introduced and fixed in place carefully and this area was draped. Oneal was placed through the drainage catheter. After 1 cm incision was made in the supraumbilical area, 15 cm from the pubic symphysis, this is in area where there appeared to be a hernia, which on opening was very clear that there was incarcerated preperitoneal fat. So, this was dissected from all the way around by extending the skin incision to 2.5-3 cm and then circumferentially, the hernia sac was dissected, freed up, clamped with a Sabina, cut with scissors and tied with a 0 Vicryl suture x2. Two sacs were removed and then the fascia was completely exposed on all sides. There is at least a 1.5 cm defect, so the inferior part of the defect was closed with the help of a [id number] 0 PDS and then the peritoneum was entered sharply, S retractors placed, Kate introduced with the balloon and fixed in place. Then, on top of this, the robotic Kate was introduced for the surgery. An 8 mm left lateral port was placed and using this port, omental adhesions were taken down in order for me to be able to place the right-sided two lateral ports. Once this was done, the ascending colon adhesions were also taken down. LigaSure was used to take this down as well as sharp dissection with scissors. Once the ports were placed, an 8 on the right side, 8 cm from the center and then another 8 cm laterally. The 8 mm outer and 5 mm inner cannula port was placed for AirSeal. All these were fixed in place. The patient was placed in T-santo. Upper abdominal surface is completely unremarkable. Lower abdominal surfaces significant again for more omental adhesions on the left lateral aspect to the anterior abdominal wall and close to the bladder. This is most likely from her past hernia repair and cystotomy. All these were systematically taken down. Then, the right inguinal hernia that was incarcerated where the contents were reduced back into the abdomen, cauterized with bipolar and cut. This was all done once the robot was docked, targeted and all the instruments were placed under direct vision with fenestrated grasper on the arm 2 and scissors with bipolar and monopolar respectively. PATIENT NAME: JOY YOUNG The bowel was retracted superiorly into the upper abdomen. Then, both ureters were visualized in the pelvic brim to the ureteric tunnel. Uterosacral ligaments were also slightly visualized. They are more prominent on the left side than on the right side at the initial survey before the hysterectomy. Then, peritoneum incised on top of the vaginal VCare cup. Then, bladder was dissected inferiorly and the peritoneum opened up all the way to both round ligaments and posteriorly on the vaginal cup as well. Monopolar was used to make an incision here. The scissors were changed to vessel sealer. The IP ligaments, mesosalpinx, round ligament, broad ligament were all dissected, first on the right, then on the left side. Vessels were taken down and cauterized and cut with the vessel sealer and once this was done, the scissors were brought back and bipolar was used for cautery. There was slightly more bleeding from the right lateral vessels than on the left side. This was well taken care of. Mostly they were from the cardinal ligaments. Once all this was cauterized, circumferential colpotomy was performed with monopolar scissors with single janak and the specimen pulled out through the vagina. Vaginal cuff was cauterized as well appropriately using the bipolar, then angle suture on the right corner was placed with 0 Vicryl simple stitch and then a [id number] right immediately medial to it. Then, 2-0 V-Loc was used to close in two layers the entire cuff, coming back and closing the right angle as well and the second layer with a V-Loc. Once this was done, we moved on to the prolapse repair. A medium EEA sizer was introduced in the vagina and once this was lifted up after the cuff closure, the uterosacral ligaments were prominent and retraced. Once this was done, a 0 Vicryl suture was placed on each side. Simple stitch in the mid ligament for retraction. Then, 2-0 PDS sutures were taken first in the distal part of the ligament. Sutures were placed in an S-shaped fashion from the outer to inner and inner to outer and then through the posterior wall of the cuff and then to the anterior wall on the right lateral aspect of the cuff, similarly on the left lateral aspect of the cuff. Once these two were tied down, then a second suture was placed and another centimeter and a half proximal on the uterosacral ligament in a very similar fashion. Then, the sutures were then placed on the ligament attached to the medial aspect of the first suture on each side through the posterior wall and the anterior wall. Once these two were tied down, then a third stitch was placed 1 cm superior to the second stitch and taken from right uterosacral to the posterior wall, then the left uterosacral and back to the posterior wall, performed the culdoplasty and bringing the uterosacrals together. Before all the uterosacral sutures were placed, anterior wall was dissected with the help of the graspers and [place] and then scissors. Sharp dissection was performed to expose at least 3 cm of the anterior wall. Once this was done, then the sutures were able to be placed in a very systematic fashion bringing the anterior wall connective tissue back up and reattached to the cuff. The uterus had no evidence of electrical, mechanical or thermal injury. The bowel appeared to be unremarkable. All dissected omental and bowel adhesions were visualized. Thorough irrigation and suction was performed and IP pedicles checked, completely hemostatic. All the trocars were removed under direct vision. We used 20 degrees of Trendelenburg for the patient for the entire case, and she tolerated this very well. PATIENT NAME: JOY YOUNG All the trocars were removed. Fascial incision at the umbilicus was closed with the help of 0 PDS 2 interrupted [id number]-wd-mijuk sutures under direct vision and then an extra simple suture. We tagged sutures tied to each other. All skin incisions closed with interrupted 4-0 Vicryl sutures and Steri-Strips placed. Bladder was drained with a Oneal. Oneal removed and cystoscopy with a 17-Spanish sheath 30-degree lens normal saline. Excellent jets of urine from both ureteric orifices. There was evidence of trauma to the bladder in the past and scar tissue on the left lateral dome. No other abnormalities seen. Scope was pulled out. Bladder was drained. Pediatric cystoscope was taken and the Bulkamid sheath was taken. Injection of Bulkamid was attached to the needle and primed. Then, on a slow dribble of the normal salin the sheath, the sheath was introduced to the tip of the internal meatus. The needle was extended 2 cm into the bladder, then pulled back. The entire system pulled back into the mid urethra and injection started at 5 o'clock, 2 o'clock, 11 o'clock, and maybe 8 o'clock. There was a good injection on all sides and they appeared to be good coaptation with 1.3 mL of the Bulkamid. Once this was finished, I pulled the scope out. Bladder was drained with a 10-Spanish Oneal and left in place. Then, posterior wall repair was performed. Lateral aspects of the hymenal remnants were picked up with Allis clamps. Posterior wall injected with dilute vasopressin 20 mL and dylan-shaped incision made in the lower posterior wall as well as the perineum in a V-shape, then all the perineal skin as well as the vaginal epithelium was deepithelialized. The underlying connective tissue was opened up. The defects were laid up. Then, enterocele repair was done with a 3-0 Monocryl in a pursestring fashion. Then, fascial defect repair was performed in a site specific fashion with 2-0 PDS. Perineal body was reconstructed with the help of 2-0 Vicryl sutures and the posterior rectovaginal septum was attached to the perineal body appropriately. 2-0 Vicryl was used to close the vaginal epithelium in a continuous running locked fashion and 3-0 Vicryl to close the perineum. Rectal exam was negative. The patient tolerated the procedure well. Vaginal packing was placed. Instrument, needle and sponge counts were correct at the end of the case. The patient was recovered from anesthesia and taken to PACU in stable condition. Dictated By: Sheree Medeiros MD Date Dictated: 12/04/2022 20:02:01 Date Transcribed: 12/04/2022 21:33:10 REBECCA/ANDREWS/PIOTR Receipt ID: [id number] Authenticated and Edited by Sheree Medeiros MD On 02/26/23 5:01:51 PM at 0503 PATIENT NAME: JOY YOUNG [facility] 2022-12-04 19:01:00 [facility] ([facility]) Brief Op Note REPORT#:[id number] REPORT STATUS: Signed DATE:12/04/22 TIME:1900 PATIENT: JOY YOUNG UNIT #: [id number] ROOM/BED: [place] [id number] : 60 AGE: 62 SEX: F ATTEND: Sheree Medeiros MD ADM AUTHOR: Sheree Medeiros MD * ALL edits or amendments must be made on the electronic/computer document * Op/Inv Proc Note - Brief Pre-procedure diagnosis: 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 Minor TLH BSO 2. Umbilical and ventral hernia repairs 3. Lysis of bowel adhesions and omentum and incarcerated right inguinal hernia 4. Uterosacral ligament suspension colpopexy ( 2 sutures each side), culdoplasty 5. Vaginal posterior wall an d enterocele repairs and perineorrhaphy 6. Urethral Bulking with Bulkamid (1.3ml). Cystoscopy Primary Surgeon: waldemar Engine Designer(s): Peg Teran Anesthesia: general anesthesia Findings: 0/+3/+1/6/mod/8/0/0/+-1, incarcerated umb ventral hernia, repaired with 0 PDS sutures, inguinal right hernia incarcerated, had to be reduced before I could proceed with TLH BSO, left inguinal hernia repair adhesions and to the bladder where likely omental flap was interposed sinc ept had bladder cystotomy from left incarcerated inguinal hernia that was repaired long time ago, corresponding bladder scar noted as well later on cystoscopy, USLS 2 sutures on each USL and to dasia cuff and ant wall, culdoplasty with 2-0 PDS as well Rt ot left USL and to the mid cuff; very good ant apical suspension, Bulking 1.3ml, unrelarkable post repair, Cysto with patent ureters, refer to gen surgery for rt indirect hernia repair later Complications: none Estimated blood loss in ml's: 100 Specimens removed/altered: hernia sac, uterus tubes and oavries and cervix intact Drain(s): Oneal Catheter Placed, vag pack Implant(s): bulkamid Fluids: 2200 Urine output: 800 Approach: laparoscopic, robotic, vaginal Wound class: clean-contaminated Disposition: MEDSURG Counts: Sponge count: correct Instrument count: correct Needle count: correct at 1923 RPT #: [id number] END OF REPORT [facility]
[2025-01-16] MEDS ORDERED: ONDANSETRON 4 MG/2 ML VIAL ONE (12:46)
[2025-01-16 13:22] LABS: Absolute Lymphocytes (CBC) 0.6 K/uL (0.7-4.9); Absolute Monocytes 0.6 K/uL (0.1-1.3); Absolute Neutrophil 9.4 K/uL (1.8-8.0); Basophils % 0.2 % (0-1.3); Eosinophils % 0.1 % (0-4.4); Hematocrit 41.3 % (36.0-45.0); Hemoglobin 14.2 g/dL (12.0-15.0); MCH 31.6 pg (27.0-35.0); MCHC 34.4 g/dL (32.0-36.0); MCV 91.8 fL (80-100); Monocytes % 5.8 % (3.3-12.3); Neutrophils % 87.9 % (41.7-73.7); Platelets 193 thou/uL (152-406); Red Cell Distribution Width 13.1 % (12.1-15.2)
[2025-01-16 13:44] LABS: Albumin 3.7 g/dL (3.4-5.0); Albumin/Globulin Ratio 0.8 (1.1-1.8); Anion Gap 15.8 mEq/L (5.0-15.0); Bilirubin Total 0.8 mg/dL (0.2-1.0); Globulin 4.4 g/dL (2.3-3.5); Potassium 3.8 mEq/L (3.5-5.1); Protein, Total 8.1 g/dL (6.4-8.2); Troponin High Sensitivity 4.4 pg/mL (<58.9)
[2025-01-16 13:49] LABS: Specific Gravity 1.027 (1.005-1.030); Urine Bacteria 20-50 /HPF (<20); Urine Bilirubin 1+ (Negative); Urine Blood 2+ (Negative); Urine Clarity Extremely Turbid (Clear); Urine Color Yellow (Yellow); Urine Culture Reflex Order REFLEXED; Urine Glucose NEGATIVE (Negative); Urine Granular Casts 0-5 /LPF (None Seen); Urine Ketones 4+ (Over) (Negative); Urine Microscopic Reflex YN ORDER UMIC; Urine Mucus Slight /HPF (None Seen); Urine Nitrite NEGATIVE (Negative); Urine Protein 1+ (Negative); Urine RBC 21-50 /HPF (None Seen); Urine Urobilinogen 1+ (Normal); Urine Yeast (Budding) Trace /HPF (None Seen); Urine pH 5.5 (5.0-7.0)
--- NOTE | 2025-01-16 14:30 | RAD REPORT ---
EXAMINATION: CT ABDOMEN AND PELVIS WITH CONTRAST CLINICAL INDICATION: Female, 65 years old.ABD PAIN TECHNIQUE: CT abdomen and pelvis was performed, after the administration of IV contrast, [facility]. Axial, sagittal and coronal reconstructions were obtained. One or more of the following dose reduction techniques were used: Automated exposure control, adjustment of the mA and/o r kV according to patient size, and/or iterative reconstruction. Unless otherwise specified, incidental findings do not require dedicated imaging follow-up. [id number]. COMPARISON: 12/10/2022 FINDINGS: LOWER CHEST: Probable linear scarring at the right lung base.No significant pericardial effusion. UPPER GI: No significant abnormality. LIVER: Hepatic steatosis, but otherwise unremarkable. GALLBLADDER/BILE DUCTS: Distended gallbladder. The common bile duct is dilated which is increased fro m prior. The common bile duct measures 10 mm.? PANCREAS: No mass, ductal dilation, or lior-pancreatic fluid. SPLEEN: Unremarkable. ADRENALS: Unchanged left adrenal nodule since 2022 measuring 1.3 cm which is benign. KIDNEYS AND URETERS: No hydronephrosis.Low density and/or too small to characterize renal lesions whi ch are statistically benign. ABDOMINAL AORTA AND OTHER VESSELS: Severe atherosclerotic changes. No aortic aneurysm. PERITONEUM: No abnormal free fluid. No free air. LYMPH NODES: No pathologic lymphadenopathy. ABDOMINAL WALL: Unremarkable SMALL BOWEL/COLON: Ruptured appendicitis with fluid collection adjacent to the right psoas muscle arcelia suring 2.9 x 1.9 x 3.1 cm. Mild diverticulosis without diverticulitis. URINARY BLADDER: Underdistended but grossly unremarkable. REPRODUCTIVE ORGANS: Uterus surgically absent. No adnexal abnormality. MUSCULOSKELETAL: Grade 1 anterolisthesis of L4 and L5. ADDITIONAL FINDINGS: None. IMPRESSION: Ruptured appendicitis with gas and fluid containing collection that is likely retroperitoneal. The co urse of the appendix is retrocecal. THIS REPORT CONTAINS FINDINGS THAT MAY BE CRITICAL TO PATIENT CARE. The emergent findings were commun icated to Dr. Salgado on 01/16/2025 2:20 PM.
[2025-01-16] MEDS ORDERED: PIPERACIL/TAZO 3.375 GM VIAL IV ONE (14:50)
[2025-01-16] MEDS ORDERED: NA CHLORIDE 0.9% 100 ML ONE (14:50)
--- NOTE | 2025-01-16 14:51 | ER ---
Nurse's Notes [facility] Name: Joy Phan Age: 65 yrs Sex: Female : 1960 Arrival Date: 01/16/2025 Time: 11:45 Bed 4 Private MD: Diagnosis: Acute appendicitis with localized peritonitis Presentation: 01/16 12:14 Chief complaint: Patient states: RLQ abdominal pain since Thursday with N/V. Coronavirus ll1 screen: Client denies travel out of the [place] in the last 14 days. At this time, the client does not indicate any symptoms associated with coronavirus-19. Ebola Screen: Patient denies travel to an Ebola-affected area in the 21 days before illness onset. Initial Sepsis Screen: Does the patient meet any 2 criteria? No. Patient's initial sepsis screen is negative. Does the patient have a suspected source of infection? No. Patient's initial sepsis screen is negative. Risk Assessment: Do you want to hurt yourself or someone else? Patient reports no desire to harm self or others. Onset of symptoms was January 13, 2025. 12:14 Method Of Arrival: Ambulatory ll1 12:14 Acuity: LOVELY 3 ll1 Triage Assessment: 12:14 General: Appears uncomfortable, Behavior is calm, cooperative, appropriate for age. ss Pain: Complains of pain in abdomen Quality of pain is described as aching, crampy. GI: Reports lower abdominal pain. 12:14 GI: Reports nausea, vomiting. ss Historical: - Allergies: 12:14 Aleve; ll1 12:14 TETRACYCLINES; ll1 12:14 Tums; ll1 - PMHx: 12:14 Hypertension; Lung Cancer; neck pain; Stress Urinary Incontinence; Uterovaginal ll1 prolapse; - PSHx: 12:14 hysterectomy; ll1 - Immunization history:: Adult Immunizations up to date. - Infectious Disease History:: Denies. - Social history:: Smoking status: Patient denies any tobacco usage or history of. Screenin:21 [facility] ED Fall Risk Assessment (Adult) History of falling in the last 3 months, ld1 including since admission No falls in past 3 months (0 pts) Confusion or Disorientation No (0 pts) Intoxicated or Sedated No (0 pts) Impaired Gait No (0 pts) Mobility Assist Device Used No (0 pt) Altered Elimination No (0 pt) Score/Fall Risk Level 0 - 2 = Low Risk Oriented to surroundings, Hourly rounding (assess needs \T\ fall precautionary measures) done. Abuse screen: Denies threats or abuse. Denies injuries from another. Nutritional screening: No deficits noted. Tuberculosis screening: No symptoms or risk factors identified. Assessment: 13:21 General: Appears in no apparent distress. comfortable, Behavior is calm, cooperative, ld1 appropriate for age. Pain: Complains of pain in left lower quadrant Pain does not radiate. Pain currently is 8 out of 10 on a pain scale. Quality of pain is described as throbbing, Pain began suddenly, Is continuous. Neuro: Level of Consciousness is awake, alert, obeys commands, Oriented to person, place, time, situation, Appropriate for age. Cardiovascular: Capillary refill < 3 seconds Patient's skin is warm and dry. Respiratory: Airway is patent Respiratory effort is even, unlabored. GI: Abdomen is flat, non-distended, Bowel sounds present X 4 quads. Abd is soft Abdomen is tender to palpation in left lower quadrant Reports lower abdominal pain, nausea, vomiting. : No signs and/or symptoms were reported regarding the genitourinary system. EENT: No signs and/or symptoms were reported regarding the EENT system. Derm: No signs and/or symptoms reported regarding the dermatologic system. Musculoskeletal: No signs and/or symptoms reported regarding the musculoskeletal system. 16:25 Reassessment: Patient appears in no apparent distress at this time. Patient and/or cm10 family updated on plan of care and expected duration. Pain level reassessed. Patient is alert, oriented x 3, equal unlabored respirations, skin warm/dry/pink. Vital Signs: 12:14 BP 126 / 84; Pulse 97; Resp 16; Temp 98.5; Pulse Ox 97% ; Weight 60.33 kg; Height 5 ft. ll1 6 in. ; Pain 5/10; 13:21 BP 132 / 73; Pulse 77; Resp 18; Pulse Ox 95% on R/A; Pain 7/10; ld1 15:45 BP 117 / 61; Pulse 78; Resp 15; Pulse Ox 97% on R/A; cm10 12:14 Body Mass Index 21.47 (60.33 kg, 167.64 cm) ll1 12:14 Pain Scale: Adult ll1 13:21 Pain Scale: Adult ld1 ED Course: 11:47 Patient arrived in ED. im 11:49 Gerardo Salgado DO is Attending Physician. ms3 12:15 Triage completed. ll1 12:15 Arm band placed on. ll1 13:21 Sarah Salgado, RN is Primary Nurse. ld1 13:21 Patient has correct armband on for positive identification. Placed in gown. Bed in low ld1 position. Call light in reach. Side rails up X2. case monitor on. Pulse ox on. NIBP on. Door closed. Noise minimized. Warm blanket given. 13:21 No provider procedures requiring assistance completed. Inserted saline lock: 20 gauge ld1 in left antecubital area, using aseptic technique. Blood collected. Flushed with 10 mL NS. 13:24 Urinalysis w/ reflexes Sent. ld1 14:01 CT Abd/Pelvis - IV Contrast Only In Process Unspecified. EDMS 14:49 initiated transfer to [facility]. bd 16:24 Provided Education on: need for transfer. cm10 16:24 Patient transferred, IV remains in place. cm10 Administered Medications: 11:56 CANCELLED (Physician Discretion): [id number] mg IVP once; dilute with 10 mL 0.9% ms3 NaCl; give over 2 minutes 13:24 Drug: Ondansetron IVP 4 mg IVP once; over 2 minutes Route: IVP; Site: left antecubital; ld1 14:00 Follow up: Response: No adverse reaction cm10 15:00 Drug: Piperacillin-Tazobactam IVPB 3.375 grams IVPB once over 60 mins; (mix in NS 100 cm10 mL) Route: IVPB; Infused Over: 60 mins; Site: left antecubital; 15:30 Follow up: Response: No adverse reaction; IV Status: Completed infusion; IV Intake: cm10 100ml Medication: 13:21 VIS not applicable for this client. ld1 Intake: 15:30 IV: 100ml; Total: 100ml. cm10 Outcome: 14:51 ER care complete, transfer ordered by . ms3 16:24 Transferred by ground EMS [facility]. to [facility], cm10 16:24 Condition: stable 16:24 Instructed on the need for transfer, 16:26 Patient left the ED. cm10 Signatures: Dispatcher [employer] EDMS Chery Cagle Shelby, HOLLEY RN ss Ernesto Mak RN RN ll1 Gerardo Salgado DO DO ms3 Sarah Salgado RN RN ld1 Dee Clemente Clarissa, RN RN cm10 Corrections: (The following items were deleted from the chart) 14:40 12:14 GI: Reports lower abdominal pain, ss ss 14:40 14:40 GI: Reports nausea, vomiting, ss ss
--- NOTE | 2025-01-16 14:51 | EDPHYS ---
Physician Documentation [facility] Name: Joy Phan Age: 65 yrs Sex: Female : 1960 Arrival Date: 01/16/2025 Time: 11:45 Bed 4 Private MD: ED Physician Gerardo Salgado HPI: 01/16 15:28 This 65 yrs old Female presents to ER via Ambulatory with complaints of Abdominal Pain. ms3 15:28 65-year-old female with past medical history of hypertension, lung cancer, stress ms3 urinary incontinence, uterovaginal prolapse presents to the emergency department for right lower quadrant abdominal pain that began on Oren night. Patient states pain is worse with walking. Patient rates her pain a 5/10. Patient endorses nausea, vomiting, constipation. Patient denies diarrhea. Patient states the pain is better after taking hydrocodone.. Historical: - Allergies: 12:14 Aleve; ll1 12:14 TETRACYCLINES; ll1 12:14 Tums; ll1 - PMHx: 12:14 Hypertension; Lung Cancer; neck pain; Stress Urinary Incontinence; Uterovaginal ll1 prolapse; - PSHx: 12:14 hysterectomy; ll1 - Immunization history:: Adult Immunizations up to date. - Infectious Disease History:: Denies. - Social history:: Smoking status: Patient denies any tobacco usage or history of. ROS: 15:28 Constitutional: Negative for fever, and chills. Cardiovascular: Negative for chest ms3 pain, and palpitations. Respiratory: Negative for shortness of breath, cough, wheezing, and pleuritic chest pain, 15:28 Skin: Negative for injury, rash, and discoloration, 15:28 Abdomen/GI: Positive for abdominal pain, nausea, vomiting, constipation, Negative for diarrhea, Exam: 15:28 Constitutional: This is a well developed, well nourished patient who is awake, alert, ms3 and in no acute distress. Cardiovascular: Regular rate and rhythm with a normal S1 and S2. No gallops, murmurs, or rubs. Normal PMI, no JVD. No pulse deficits. Respiratory: Lungs have equal breath sounds bilaterally, clear to auscultation and percussion. No rales, rhonchi or wheezes noted. No increased work of breathing, no retractions or nasal flaring. Abdomen/GI: Soft, non-tender, with normal bowel sounds. No distension or tympany. No guarding or rebound. No evidence of tenderness throughout. Skin: Warm, dry with normal turgor. Normal color with no rashes, no lesions, and no evidence of cellulitis. MS/ Extremity: Pulses equal, no cyanosis. Neurovascular intact. Full, normal range of motion. Vital Signs: 12:14 BP 126 / 84; Pulse 97; Resp 16; Temp 98.5; Pulse Ox 97% ; Weight 60.33 kg; Height 5 ft. ll1 6 in. ; Pain 5/10; 13:21 BP 132 / 73; Pulse 77; Resp 18; Pulse Ox 95% on R/A; Pain 7/10; ld1 15:45 BP 117 / 61; Pulse 78; Resp 15; Pulse Ox 97% on R/A; cm10 12:14 Body Mass Index 21.47 (60.33 kg, 167.64 cm) ll1 12:14 Pain Scale: Adult ll1 13:21 Pain Scale: Adult ld1 MDM: 12:04 Medical Screening Exam initiated ms3 15:28 Differential diagnosis: appendicitis, bowel obstruction, non-specific abd pain. Data ms3 reviewed: vital signs, nurses notes, lab test result(s), radiologic studies, and as a result, I will transfer patient. Consideration of Admission/Observation Patient transferred for IR. Management of patient was discussed with the following: Presser Cotton Ginning: Dr Anton- Patient will need IR drainage. Discussed case with Dr Felix and no IR available to drain fluid collection. Discussed with Dr Anton and he recommends transfer.. I considered the following discharge prescriptions or medication management in the emergency department Medications were administered in the Emergency Department. See MAR. Counseling: I had a detailed discussion with the patient and/or guardian regarding the historical points, exam findings, and any diagnostic results supporting the discharge/admit diagnosis, lab results, radiology results, the need to transfer to another facility, [facility] does not immediately have the required specialist. ED course: Discussed necessity of transfer for interventional radiology and fluid drainage with patient. Patient understands agrees with plan. All questions were answered.. 01/16 11:54 Order name: CBC with Diff; Complete Time: 15:25 ms3 01/16 11:54 Order name: CMP; Complete Time: 13:55 ms3 01/16 11:54 Order name: Lipase; Complete Time: 13:55 ms3 01/16 11:54 Order name: Troponin High Sensitivity; Complete Time: 13:55 ms3 01/16 12:04 Order name: Urinalysis w/ reflexes; Complete Time: 13:55 ms3 01/16 14:02 Order name: Urine Culture EDMS 01/16 15:03 Order name: CBC Smear Scan; Complete Time: 15:25 EDMS 01/16 12:04 Order name: CT Abd/Pelvis - IV Contrast Only; Complete Time: 14:30 ms3 01/16 11:55 Order name: EKG; Complete Time: 11:55 ms3 01/16 11:54 Order name: Labs collected and sent; Complete Time: 13:24 ms3 01/16 11:55 Order name: O2 Per Protocol; Complete Time: 13:02 ms3 01/16 12:04 Order name: IV Saline Lock; Complete Time: 13:24 ms3 Administered Medications: 11:56 CANCELLED (Physician Discretion): [id number] mg IVP once; dilute with 10 mL 0.9% ms3 NaCl; give over 2 minutes 13:24 Drug: Ondansetron IVP 4 mg IVP once; over 2 minutes Route: IVP; Site: left antecubital; ld1 14:00 Follow up: Response: No adverse reaction cm10 15:00 Drug: Piperacillin-Tazobactam IVPB 3.375 grams IVPB once over 60 mins; (mix in NS 100 cm10 mL) Route: IVPB; Infused Over: 60 mins; Site: left antecubital; 15:30 Follow up: Response: No adverse reaction; IV Status: Completed infusion; IV Intake: cm10 100ml Disposition Summary: 01/16/25 14:51 Transfer Ordered Notes: Transfer Location: [facility] ms3 Reason: Higher level of care ms3 Condition: Stable ms3 Problem: new ms3 Symptoms: are unchanged ms3 Accepting Physician: Dr Sparrow(01/16/25 16:26) cm10 Diagnosis - Acute appendicitis with localized peritonitis ms3 Forms: - Medication Reconciliation Form ms3 - SBAR form ms3 Signatures: Dispatcher [employer] EDNH Ernesto Mak RN RN ll1 Gerardo Salgado DO DO ms3 Sarah Salgado RN RN ld1 China Muñiz RN RN cm10 Corrections: (The following items were deleted from the chart) 11:54 11:54 CBC+H.LAB.BRZ ordered. EDMS EDMS 11:54 11:54 COMPREHENSIVE METABOLIC PANEL+C.LAB.BRZ ordered. EDMS EDMS 11:54 11:54 LIPASE+C.LAB.BRZ ordered. EDMS EDMS 11:54 11:54 Troponin High Sensitivity+C.LAB.BRZ ordered. EDMS EDMS 11:54 11:54 Abdomen Limited+US.RAD.BRZ ordered. EDMS EDMS 11:55 11:55 Cardiac monitoring ordered. ms3 ms3 11:56 11:54 Famotidine IVP 20 mg IVP once; dilute with 10 mL 0.9% NaCl; give over 2 minutes ms3 ordered. ms3 11:56 11:54 IV Saline Lock ordered. ms3 ms3 11:56 11:55 EKG - Nurse/Tech ordered. ms3 ms3 11:56 11:55 O2 Sat Monitoring ordered. ms3 ms3 12:05 12:05 Urinalysis+U.LAB.BRZ ordered. EDMS EDMS 12:05 12:05 Abdomen Pelvis W Con+CT.RAD.BRZ ordered. EDMS EDMS 15:28 14:51 ms3 ms3 16:26 15:28 Dr Sparrow ms3 cm10
[2025-01-16 15:03] LABS: Blood Morphology Comment NOT SEEN (NOT SEEN); Platelet Estimate ADEQ; Platelets Clumped FEW; White Blood Cell Scan OK (OK)
[2025-01-16 16:37] VITALS: TEMP 98.5
[2025-01-16 16:39] VITALS: BP 117/61; O2SAT 97
== END 2025-01-16 16:26 | disposition short-term general hospital (02) ==
LOC: ER 11:45
DX: K35.30 Acute appendicitis with localized peritonitis, without perforation or gangrene (principal); I10 Essential (primary) hypertension; Z85.118 Personal history of other malignant neoplasm of bronchus and lung
CPT/HCPCS: 96365; 87088; 85025; 81001; 87086; 36415; 84484; 83690; 80053; 74177; 96375; 99285; Q9967; J2543; J2405

== ENCOUNTER 2025-02-06 11:29 | Emergency (ER) | payer OTHER ==
[2025-02-06] MEDS ORDERED: PROMETHAZINE INJ 25 MG/ML AMP ONE (11:44)
[2025-02-06] MEDS ORDERED: NA CHLORIDE 0.9% 1,000 ML ONE (11:44)
[2025-02-06 12:03] LABS: Absolute Lymphocytes (CBC) 0.8 K/uL (0.7-4.9); Absolute Monocytes 0.3 K/uL (0.1-1.3); Absolute Neutrophil 4.4 K/uL (1.8-8.0); Basophils % 0.6 % (0-1.3); Eosinophils % 0.2 % (0-4.4); Hematocrit 40.1 % (36.0-45.0); Hemoglobin 13.8 g/dL (12.0-15.0); Lymphocytes % 14.7 % (15.3-44.8); MCH 31.2 pg (27.0-35.0); MCHC 34.5 g/dL (32.0-36.0); MCV 90.5 fL (80-100); MPV 9.2 fL (7.6-11.3); Monocytes % 5.5 % (3.3-12.3); Nucleated Red Blood Cells % 0.1 % (0-0); Platelets 194 thou/uL (152-406); RBC Red Blood Cell Count 4.43 M/uL (3.86-4.86); Red Cell Distribution Width 13.5 % (12.1-15.2)
[2025-02-06 12:23] LABS: Albumin/Globulin Ratio 1.1 (1.1-1.8); Anion Gap 8.7 mEq/L (5.0-15.0); Bilirubin Total 0.5 mg/dL (0.2-1.0); Globulin 3.5 g/dL (2.3-3.5); Potassium 3.7 mEq/L (3.5-5.1); Protein, Total 7.5 g/dL (6.4-8.2)
--- NOTE | 2025-02-06 12:49 | RAD REPORT ---
EXAMINATION: CT ABDOMEN AND PELVIS WITH CONTRAST CLINICAL INDICATION: ABD PAIN TECHNIQUE: CT abdomen and pelvis was performed, after the administration of IV contrast, as per [facility]. Axial, sagittal and coronal reconstructions were obtained. One or more of the following dose reduction techniques were used: Automated exposure control, adjustment of the mA and k V according to patient size, and iterative reconstruction. Unless otherwise specified, incidental findings do not require dedicated imaging follow-up. COMPARISON: 01/16/2025, 12/10/2022 FINDINGS: LOWER CHEST: Mild linear atelectasis is seen in the medial right lung base. LIVER: Mild fatty liver is present. No focal lesion or biliary dilatation is seen. Grossly unremark able gallbladder. SPLEEN: Normal size. No focal lesion. PANCREAS: No mass, ductal dilation, or lior-pancreatic fluid. ADRENALS: Normal; no mass. KIDNEYS: No hydronephrosis. Multiple varying size renal cysts. GASTROINTESTINAL TRACT: No evidence of free air, significant intra-abdominal free fluid, bowel obstru ction or abscess. Right-sided pigtail catheters in place. No significant fluid collection is seen in the region of the distal catheter pigtail. Mild sigmoid diverticulosis coli. APPENDIX: Normal appendix. LYMPH NODES: No lymphadenopathy. MUSCULOSKELETAL: Mild multilevel spinal degenerative changes. Lumbar levoscoliosis. ADDITIONAL FINDINGS: Aortoiliac atherosclerosis. IMPRESSION: No acute abnormalities seen in the abdomen or pelvis.
[2025-02-06] MEDS ORDERED: METOCLOPRAMIDE 10 MG/2mL INJ ONE (12:56)
[2025-02-06] MEDS ORDERED: LOPERAMIDE HCL 2 MG CAPSULE ONE (12:58)
[2025-02-06 13:03] LABS: Specific Gravity 1.006 (1.005-1.030); Sqamous Epithelial <5 /HPF (None Seen); Urine Bacteria <20 /HPF (<20); Urine Bilirubin NEGATIVE (Negative); Urine Blood Negative (Negative); Urine Clarity Extremely Turbid (Clear); Urine Color Colorless (Yellow); Urine Culture Reflex Order NOT NEEDED; Urine Glucose NEGATIVE (Negative); Urine Ketones TRACE (Negative); Urine Microscopic Reflex YN ORDER UMIC; Urine Nitrite NEGATIVE (Negative); Urine Protein NEGATIVE (Negative); Urine RBC None Seen /HPF (None Seen); Urine Urobilinogen Normal (Normal); Urine WBC None Seen /HPF (<5); Urine pH 5.5 (5.0-7.0)
--- NOTE | 2025-02-06 13:33 | EDPHYS ---
Physician Documentation [facility] Name: Joy Phan Age: 65 yrs Sex: Female : 1960 Arrival Date: 02/06/2025 Time: 11:29 Bed 14 Private MD: ED Physician Lio Eisenberg HPI: 02/06 11:44 This 65 yrs old Female presents to ER via Ambulatory with complaints of Nausea, sb4 Diarrhea. 11:44 The patient presents to the emergency department with nausea, diarrhea. Onset: The sb4 symptoms/episode began/occurred 3 day(s) ago. 11:45 Patient states that she had a perforated appendicitis about 2-1/2 weeks ago, she had sb4 surgery done at [facility] with a CHANNING drain. States that she followed up with Dr. Muñiz a few days ago and he started on ciprofloxacin and wanted to order a CT scan to follow-up. Patient states that her insurance has not approved the CT scan and she has been feeling weak, nauseated, and been experiencing diarrhea since then. Denies any fever or chills. States that the CHANNING drain is draining a straw-colored fluid, but is not draining very much. She denies any pain in the site of the drain. Historical: - Allergies: 11:43 Aleve; ap3 11:43 TETRACYCLINES; ap3 11:43 Tums; ap3 - PMHx: 11:43 Lung Cancer; Hypertension; neck pain; Stress Urinary Incontinence; Uterovaginal ap3 prolapse; - PSHx: 11:43 hysterectomy; Appendectomy; ap3 - Immunization history:: Client reports receiving the 2nd dose of the Covid vaccine, Flu vaccine is up to date. - Infectious Disease History:: Denies. - Social history:: Smoking status: unknown. ROS: 11:45 Respiratory: Negative for shortness of breath, cough, wheezing, and pleuritic chest sb4 pain, 11:45 Constitutional: Positive for malaise, 11:45 Abdomen/GI: Positive for nausea, diarrhea, 11:45 All other systems are negative, Exam: 11:45 Constitutional: This is a well developed, well nourished patient who is awake, alert, sb4 and in no acute distress. Head/Face: Normocephalic, atraumatic. Eyes: Extra-ocular motions intact. Periorbital areas with no swelling, redness, or edema. ENT: Mucous membranes moist. Cardiovascular: Regular rate and rhythm with a normal S1 and S2. Respiratory: No increased work of breathing, no retractions or nasal flaring. Skin: Warm, dry with normal turgor. Normal color with no rashes, no lesions, and no evidence of cellulitis. 11:45 Abdomen/GI: Inspection: CHANNING drain in right lower quadrant draining very small amount of serous fluid. Minimal amount of erythema surrounding the insertion point. No induration, no tenderness, Bowel sounds: normal, Palpation: abdomen is soft and non-tender, Vital Signs: 11:40 BP 137 / 93; Pulse 69; Resp 18; Temp 98.4(O); Pulse Ox 98% on R/A; Weight 59.87 kg; ap3 Height 5 ft. 6 in. ; 11:55 BP 139 / 69; Pulse 73; Resp 18; Pulse Ox 99% on R/A; ld1 11:40 Body Mass Index 21.31 (59.87 kg, 167.64 cm) ap3 MDM: 11:33 Medical Screening Exam initiated sb4 13:05 Differential diagnosis: gastritis, viral gastroenteritis. sb4 13:32 Data reviewed: vital signs, nurses notes, lab test result(s), radiologic studies, and sb4 as a result, I will discharge patient. Management of patient was discussed with the following: Tank Builder Supervisor: Dr. Muñiz, recommends discontinuing cipro, follow up in clinic. Counseling: I had a detailed discussion with the patient and/or guardian regarding the historical points, exam findings, and any diagnostic results supporting the discharge/admit diagnosis, lab results, radiology results, the need for outpatient follow up, a general surgeon, to return to the emergency department if symptoms worsen or persist or if there are any questions or concerns that arise at home. 02/06 11:41 Order name: CBC with Diff; Complete Time: 12:09 sb4 02/06 11:41 Order name: CMP; Complete Time: 12:24 sb4 02/06 11:41 Order name: Lipase; Complete Time: 12:24 sb4 02/06 11:41 Order name: Urinalysis w/ reflexes; Complete Time: 13:03 sb4 02/06 11:41 Order name: CT Abd/Pelvis - IV Contrast Only; Complete Time: 12:50 sb4 02/06 11:41 Order name: IV Saline Lock; Complete Time: 11:57 sb4 02/06 11:41 Order name: Labs collected and sent; Complete Time: 57 sb4 Administered Medications: :57 Drug: NS 0.9% IV 1000 ml IV at 1 bolus Per protocol; to be given as a bolus over 60 ld1 minutes Route: IV; Rate: 1 bolus; Site: right antecubital; 14:00 Follow up: IV Status: Completed infusion; IV Intake: 1000ml ld1 11:57 Drug: Promethazine IVP 12.5 mg IVP once Route: IVP; Site: right antecubital; ld1 12:30 Follow up: Response: No adverse reaction ld1 13:01 Drug: metoCLOPramide IVP 10 mg IVP once; over 1 to 2 minutes Route: IVP; Site: right ld1 antecubital; 13:30 Follow up: Response: No adverse reaction ld1 13:01 Drug: Loperamide PO 4 mg PO once Route: PO; ld1 13:30 Follow up: Response: No adverse reaction ld1 Disposition: 16:12 Co-signature as Attending Physician, Lio Eisenberg MD I reviewed the patient's care rn provided by the Advanced Practice Provider and agree with the diagnosis and treatment plan. Disposition Summary: 02/06/25 13:32 Discharge Ordered Notes: Location: Home sb4 Problem: an ongoing problem sb4 Symptoms: have improved sb4 Condition: Stable sb4 Diagnosis - Nausea, diarrhea, malaise sb4 Followup: sb4 - With: Gurpreet Muñiz MD - When: 2 - 3 days - Reason: Recheck today's complaints, Re-evaluation by your physician Discharge Instructions: - Discharge Summary Sheet sb4 - Food Choices to Help Relieve Diarrhea, Adult sb4 - Nausea, Adult, [id number] sb4 Forms: - Patient Portal Instructions sb4 - Leadership Thank You Letter sb4 Prescriptions: - Reglan 10 mg Oral tablet - take 1 tablet ORAL route every 6 hours As needed; 20 tablet; Refills: 0, sb4 Product Selection Permitted Signatures: Dispatcher [employer] EDLio Dennis MD MD rn Prokisch, Amanda, RN RN ap3 Sarah Salgado RN RN ld1 Jadyn Valle PA-C PA-C sb4
--- NOTE | 2025-02-06 13:33 | ER ---
Nurse's Notes [facility] Name: Joy Phan Age: 65 yrs Sex: Female : 1960 Arrival Date: 02/06/2025 Time: 11:29 Bed 14 Private MD: Diagnosis: Nausea, diarrhea, malaise Presentation: 02/06 11:40 Chief complaint: Patient states: she has been having nausea and diarrhea for approx 2 ap3 days. patient presents with abdominal drain from recent appendix rupture, and states she is on antibiotics. Coronavirus screen: At this time, the client does not indicate any symptoms associated with coronavirus-19. Ebola Screen: No symptoms or risks identified at this time. Initial Sepsis Screen: Does the patient meet any 2 criteria? No. Patient's initial sepsis screen is negative. Does the patient have a suspected source of infection? No. Patient's initial sepsis screen is negative. Risk Assessment: Do you want to hurt yourself or someone else?. Onset of symptoms was February 04, 2025. 11:40 Method Of Arrival: Ambulatory ap3 11:40 Acuity: LOVELY 3 ap3 Triage Assessment: 11:43 General: Appears uncomfortable, Behavior is calm, cooperative, appropriate for age. ap3 Pain: Denies pain. Neuro: Level of Consciousness is awake, alert, obeys commands, Oriented to person, place, time, situation, Appropriate for age. Cardiovascular: Patient's skin is warm and dry. Respiratory: Airway is patent Respiratory effort is even, unlabored, Respiratory pattern is regular, symmetrical. GI: surgical drainage tube Reports diarrhea, nausea. Historical: - Allergies: 11:43 Aleve; ap3 11:43 TETRACYCLINES; ap3 11:43 Tums; ap3 - PMHx: 11:43 Lung Cancer; Hypertension; neck pain; Stress Urinary Incontinence; Uterovaginal ap3 prolapse; - PSHx: 11:43 hysterectomy; Appendectomy; ap3 - Immunization history:: Client reports receiving the 2nd dose of the Covid vaccine, Flu vaccine is up to date. - Infectious Disease History:: Denies. - Social history:: Smoking status: unknown. Screenin:44 [facility] ED Fall Risk Assessment (Adult) History of falling in the last 3 months, ap3 including since admission No falls in past 3 months (0 pts) Confusion or Disorientation No (0 pts) Intoxicated or Sedated No (0 pts) Impaired Gait No (0 pts) Mobility Assist Device Used No (0 pt) Altered Elimination No (0 pt) Score/Fall Risk Level 0 - 2 = Low Risk Oriented to surroundings, Maintained a safe environment, Educated pt \T\ family on fall prevention, incl call for assistance when getting out of bed, Assessed \T\ reinforced patient's understanding of fall precautions, Hourly rounding (assess needs \T\ fall precautionary measures) done, Used ambulatory aids as needed (educated on \T\ assisted with). Abuse screen: Denies threats or abuse. Nutritional screening: No deficits noted. Tuberculosis screening: No symptoms or risk factors identified. Assessment: 11:55 General: Appears in no apparent distress. comfortable, Behavior is calm, cooperative, ld1 appropriate for age. Pain: Denies pain. Neuro: Level of Consciousness is awake, alert, obeys commands, Oriented to person, place, time, situation. Cardiovascular: Capillary refill < 3 seconds Patient's skin is warm and dry. Respiratory: Airway is patent Respiratory effort is even, unlabored. GI: Abdomen is flat, non-distended, Reports nausea, vomiting. : No signs and/or symptoms were reported regarding the genitourinary system. EENT: No signs and/or symptoms were reported regarding the EENT system. Derm: No signs and/or symptoms reported regarding the dermatologic system. Musculoskeletal: No signs and/or symptoms reported regarding the musculoskeletal system. Vital Signs: 11:40 BP 137 / 93; Pulse 69; Resp 18; Temp 98.4(O); Pulse Ox 98% on R/A; Weight 59.87 kg; ap3 Height 5 ft. 6 in. ; 11:55 BP 139 / 69; Pulse 73; Resp 18; Pulse Ox 99% on R/A; ld1 11:40 Body Mass Index 21.31 (59.87 kg, 167.64 cm) ap3 ED Course: 11:31 Patient arrived in ED. im 11:32 Jadyn Valle PA-C is PHCP. sb4 11:32 Lio Eisenberg MD is Attending Physician. sb4 11:34 Sarah Salgado, HOLLEY is Primary Nurse. ld1 11:43 Triage completed. ap3 11:44 Arm band placed on right wrist. ap3 11:55 Patient has correct armband on for positive identification. Placed in gown. Bed in low ld1 position. Call light in reach. Side rails up X2. lead supply worker on. Pulse ox on. NIBP on. Door closed. Noise minimized. Warm blanket given. 11:55 No provider procedures requiring assistance completed. Inserted saline lock: 20 gauge ld1 in right antecubital area, using aseptic technique. Blood collected. Flushed with 10 mL NS. 12:43 CT Abd/Pelvis - IV Contrast Only In Process Unspecified. EDMS 13:32 Gurpreet Muñiz MD is Referral Physician. sb4 13:36 IV discontinued, intact, bleeding controlled, No redness/swelling at site. ld1 Administered Medications: 11:57 Drug: NS 0.9% IV 1000 ml IV at 1 bolus Per protocol; to be given as a bolus over 60 ld1 minutes Route: IV; Rate: 1 bolus; Site: right antecubital; 14:00 Follow up: IV Status: Completed infusion; IV Intake: 1000ml ld1 11:57 Drug: Promethazine IVP 12.5 mg IVP once Route: IVP; Site: right antecubital; ld1 12:30 Follow up: Response: No adverse reaction ld1 13:01 Drug: metoCLOPramide IVP 10 mg IVP once; over 1 to 2 minutes Route: IVP; Site: right ld1 antecubital; 13:30 Follow up: Response: No adverse reaction ld1 13:01 Drug: Loperamide PO 4 mg PO once Route: PO; ld1 13:30 Follow up: Response: No adverse reaction ld1 Medication: 11:55 VIS not applicable for this client. ld1 Intake: 14:00 IV: 1000ml; Total: 1000ml. ld1 Outcome: 13:32 Discharge ordered by . sb4 13:36 Discharged to home ambulatory, ld1 13:36 Condition: stable 13:36 Discharge instructions given to patient, Instructed on discharge instructions, follow up and referral plans. medication usage, Demonstrated understanding of instructions, follow-up care, medications, Prescriptions given X 1, 13:39 Patient left the ED. ld1 Signatures: Dispatcher [employer] EDMS Batool Lin RN RN ap3 Sarah Salgado RN RN ld1 Jadyn Valle PA-C PAStephanie sb4 Dee Clemente im
[2025-02-06 13:49] VITALS: TEMP 98.4
[2025-02-06 13:55] VITALS: BP 139/69; O2SAT 99
== END 2025-02-06 13:39 | disposition home or self-care (01) ==
LOC: ER 11:29
DX: R11.0 Nausea (principal); R19.7 Diarrhea, unspecified; R53.81 Other malaise; Z98.890 Other specified postprocedural states
CPT/HCPCS: 96361; 85025; 81001; 36415; 83690; 80053; 74177; 96375; 96374; 99285; Q9967; J2550; J2765; J7030

== ENCOUNTER 2025-03-15 06:23 | Day surgery (SDC) | payer OTHER ==
[2025-03-14 15:27] LABS: Absolute Eosinophils 0.2 K/uL (0-0.5); Absolute Lymphocytes (CBC) 1.7 K/uL (0.7-4.9); Absolute Monocytes 0.4 K/uL (0.1-1.3); Absolute Neutrophil 2.7 K/uL (1.8-8.0); Basophils % 0.7 % (0-1.3); Eosinophils % 3.5 % (0-4.4); Hematocrit 37.1 % (36.0-45.0); Hemoglobin 12.9 g/dL (12.0-15.0); Lymphocytes % 33.5 % (15.3-44.8); MCH 31.8 pg (27.0-35.0); MCHC 34.6 g/dL (32.0-36.0); MCV 91.8 fL (80-100); MPV 8.5 fL (7.6-11.3); Monocytes % 8.4 % (3.3-12.3); Neutrophils % 53.9 % (41.7-73.7); Platelets 153 thou/uL (152-406); RBC Red Blood Cell Count 4.05 M/uL (3.86-4.86); Red Cell Distribution Width 14.6 % (12.1-15.2)
[2025-03-14 15:42] LABS: Anion Gap 7.1 mEq/L (5.0-15.0); Potassium 4.1 mEq/L (3.5-5.1)
--- NOTE | 2025-03-14 16:11 | RAD REPORT ---
EXAM: Chest Pa And Lat (2 Views) HISTORY: 65 years Female Pre-op pending appendectomy COMPARISON: 12/10/2022 FINDINGS: LUNGS/PLEURA: The lungs are clear. No pleural effusions or pneumothorax. No pulmonary edema. CARDIAC/MEDIASTINUM: The cardiac silhouette is within normal limits. UPPER ABDOMEN: No significant abnormality. BONES: No acute abnormality. LINES/TUBES/OTHER: N/A IMPRESSION: No evidence of acute cardiopulmonary disease.
[2025-03-15] MEDS ORDERED: FENTANYL CITR 100 MCG/2 ML ONE (07:06)
[2025-03-15] MEDS ORDERED: dexAMETHasone 10 MG/ML VIAL ONE (07:06)
[2025-03-15] MEDS ORDERED: KETOROLAC 30 MG/ML INJ ONE (07:06)
[2025-03-15] MEDS ORDERED: ROCURONIUM 50 MG/5 ML VIAL IV ONE (07:06)
[2025-03-15] MEDS ORDERED: ONDANSETRON 4 MG/2 ML VIAL ONE (07:06)
[2025-03-15] MEDS ORDERED: propofoL 200 MG/20 ML VIAL IV ONE (07:06)
[2025-03-15] MEDS ORDERED: MIDAZOLAM HCL 2 MG/2 ML INJ ONE (07:06)
[2025-03-15] MEDS ORDERED: LIDOCAINE 2% MPF 5 ML VIAL ONE (07:06)
[2025-03-15] MEDS: Ringers Lactate 1,000 ML IV ONE (07:29)
[2025-03-15] MEDS: CEFAZOLIN SODIUM 1 GM/VIAL ONE (07:44)
[2025-03-15] MEDS ORDERED: Mastisol Adhesive Liq ONE (08:45)
[2025-03-15] MEDS ORDERED: NEOSTIGMINE 1 MG/ML -10 ML VIAL ONE (08:45)
[2025-03-15] MEDS ORDERED: GLYCOPYRROLATE 0.2 MG/ML SYR ONE (08:45)
--- NOTE | 2025-03-15 08:54 | P.BOP ---
Preoperative diagnosis: Rupture appendicitis with intrabdominal abscess, s/p percutaneous drainage, Postoperative diagnosis: hx of strangulated bowel resection , intrabdominal adhesions Primary procedure: Diagnostic laparoscopy, laparoscopic Appendectomy, lysis of adhesions Estimated blood loss: <10cc Specimen: vandana Findings: as above Anesthesia: General Complications: None Transferred to: Recovery Room Condition: Good
[2025-03-15] MEDS ORDERED: Ringers Lactate 1,000 ML IV ONE (09:03)
[2025-03-15] MEDS: HYDROMORPHONE HCL 1 MG/ML INJ ONE (09:05)
[2025-03-15 09:36] VITALS: BP 121/55; TEMP 97.2; O2SAT 95
--- NOTE | 2025-03-15 12:19 | EKG ---
Test Date: 2025-03-14 Test Time: 15:14:12 Gas Appliance Mechanic: ESTEPHANIA MEASUREMENT RESULTS: Intervals: Rate: 61 ID: [id number] QRSD: 80 QT: 470 QTc: 473 [place]: P: 73 ID: [id number] QRS: 76 T: 52 INTERPRETIVE STATEMENTS: Normal sinus rhythm RSR' or QR pattern in V1 suggests right ventricular conduction delay Borderline ECG Compared to ECG 01/18/2012 14:56:10 RSR' in V1 or V2 now present Atrial premature complex(es) no longer present Aberrant conduction of supraventricular beat(s) no longer present Ventricular premature complex(es) no longer present ST (T wave) deviation no longer present Possible ischemia no longer present Electronically Signed On 03-15-25 12:19:02 CDT by Vladimir Sotelo
--- NOTE | 2025-03-15 14:08 | OP ---
Date of Procedure: 03/15/2025 Surgeon: Gurpreet Muñiz MD Preoperative Diagnoses: Ruptured appendicitis with intraabdominal abscess, status post percutaneous drainage and IV antibiotics. Also a history of a strangulated bowel resection. Postoperative Diagnoses: Ruptured appendicitis with intraabdominal abscess, status post percutaneous drainage and IV antibiotics. Also a history of a strangulated bowel resection plus intraabdominal a dhesions. Procedures: Diagnostic laparoscopy, laparoscopic appendectomy, laparoscopic lysis of adhesions. Estimated Blood Loss: Less than 10 cc. Specimen: Appendix. Anesthesia: General plus local. Indications: This is a case of a female, who came to us with a history of appendicitis, treated with IV antibiotics and drainage, now she is here for an elective appendectomy. The patient has history of abdominal surgeries. She has history of bowel resection of a strangulated bowel that was found in the recent femoral hernia. The patient feels better at this moment and CAT scan was repeated. The patient understands the benefits, alternatives, and risks of laparoscopic possible open appendectomy, which include, but not limited to, infection, bleeding, damage to adjacent structures, anesthesia co mplication, abscess, bleeding, [place], and even . She also understands this may not relieve any sym ptoms, she might need more than one surgical intervention. She understood, signed a consent. Description Of Procedure: The patient was brought to the operating room, placed in supine position. Anesthesia was induced without complication. Abdominal area was prepped and draped in a sterile fas hion. Local anesthesia was applied followed by sharp incision of the skin in the periumbilical regio n. Incision was carried down to fascia, which was opened under direct vision. Peritoneum was encoun tered, opened under direct vision. Vicryl #1 placed inside the fascia. Kate trocar was carefully introduced. Pneumoperitoneum was obtained. I inspected when we put the cameras down below that genoveva on, we found some adhesions present, so carefully we put a 5 mm trocar in the suprapubic area in the left lower quadrant. Then, with the help of LigaSure, we proceeded to do lysis of adhesions. Half t he time of the surgery was doing the lysis of adhesions. Once we have the cecum partially mobilized, opening the white lines of Toldt and protecting the ureter, we proceeded then to identify the append ix and we followed the appendix with the help of LigaSure. Mesoappendix was removed with the help of LigaSure. The ureters once again protected at all times. Once we had the base of the appendix alis r, we transected that with Endo JENNY 45 mm nonvascular. This was reinforced with the help of hemoclip s. Appendix removed from abdominal cavity using EndoCatch through the umbilical incision. The area was irrigated and suctioned. No bleeding. I left a drain in that area since the patient has history of an abscess exiting to one of the trocar sites. At that moment, I proceeded to remove the trocars under direct vision. Deflated pneumoperitoneum. Closed the fascia with #1 Vicryl. Irrigated subcu taneous tissue, closed that with 3-0 chromic and the skin with olga. Sponge counts and instrument counts were correct. CHANNING drain was secured in place with 3-0 nylon. JALYN/VONDA Voice ID: [id number] Report ID: [id number]
--- NOTE | 2025-03-15 14:13 | DS ---
Date of Discharge: 03/15/2025 Diagnoses: Ruptured appendicitis with intraabdominal abscess, status post percutaneous drainage and also intraabdominal adhesions. Procedures: Diagnostic laparoscopy, laparoscopic appendectomy, laparoscopic lysis of adhesions. Surgeon: Dr. Muñiz. Condition: Stable. Disposition: Home. Activity: As tolerated. No heavy lifting. Discharge Instructions: Follow up in my office in 1 week. Call for appointment at [phone]. Keep a hakeem dry for 48 hours, then may shower. CHANNING drain to record output q.24 hours. Patient instructed. JALYN/VONDA Voice ID: [id number] Report ID: [id number]
== END 2025-03-15 11:00 | disposition home or self-care (01) ==
LOC: OR 06:23
PROVIDERS: ATTEND Surgery
PROC: 0DNW3ZZ Release Peritoneum, Percutaneous Approach (ICD-10-PCS; 2025-03-15)
PROC: 0DTJ4ZZ Resection of Appendix, Percutaneous Endoscopic Approach (ICD-10-PCS; principal; 2025-03-15 07:30)
DX: K35.80 Unspecified acute appendicitis (principal); K66.0 Peritoneal adhesions (postprocedural) (postinfection); L02.211 Cutaneous abscess of abdominal wall
CPT/HCPCS: 44970; 49329; 93005; 85025; 80048; 36415; 88304; 71046; J2704; J2710; J2003; J2250; J3010; J1100; J1171; J2405; J7120 ×2; J0690